=== PATIENT | female | born 1950 | race Caucasian/White ===

== ENCOUNTER → 2016-06-10 | Day surgery (SDC) | payer OTHER, MEDICARE ==
[2016-05-30 09:40] VITALS: Ht 162.6 cm; Wt 118.2 kg
[~2016-06-10] VITALS: Ht 162.6 cm; Wt 118.2 kg
[~2016-06-10] MED LIST: 500ML BSS 0.3ML EPI 1:1000PF IRRIG ONE; ACETAMINOPHEN 325 MG TAB PO PRN; AMVISC PLAIN 0.8ML SYRINGE INT OCU ONE; AMVISC PLUS 0.8ML SYRINGE INT OCU ONE; BROM0.07; BROM0.07 OPR; BSS FLUSH ONE; CHOL20005 PO; DIVA500T3 PO; DULO60CA44 PO; EpINEphrine INJ 1MG/ML AMP 1 MG/ML AMP ONE; FLUT0.15 NAE; GABA-113 PO; GATI0.5S OP; LACTATED RINGER'S 1000ML 500 ML IV SCH; LIDOCAINE 3.5% OPH GEL PER APPLICATION CHARGE ONE; LIDOCAINE HCL 1% MPF 2 ML VIAL ONE; MIDAZOLAM HCL 1 MG/ML 2ML VIAL ONE; MULT-506 PO; OCUCOAT 1 ML SOLN IO ONE; OMEP20CA9 PO; POVIDONE-IODINE OP SOLN 30 ML BTL ONE; PRED1SUS3 OPL; PRED1SUS3 OPR; PREG1CAP70 PO; PROPARACAINE 0.5% OP SOLN PER DROP CHARGE OPR SCH; SUMA50TA15 PO; TOBRAMYCIN/DEXAMETHASONE OPH OINT PER APPLN CHARGE ONE; TYLOTC500 PO; [UNRECOGNIZED DRUG - CODE] PO
[2016-06-10] MEDS: PHENYLEPHRINE HCL 2.5% OP SOLN PER DROP CHARGE OPR SCH ×2 (06:58→07:03)
[2016-06-10] MEDS: TROPICAMIDE 1% OP SOLN PER DROP CHARGE OPR SCH ×2 (06:59→07:04)
[2016-06-10] MEDS: CYCLOPENTOLATE HCL 1% OP SOLN PER DROP CHARGE OPR SCH ×2 (07:00→07:05)
[2016-06-10] MEDS: KETOROLAC 0.5% OP SOLN PER DROP CHARGE OPR SCH ×2 (07:01→07:06)
[2016-06-10] MEDS: GATIFLOXACIN OP SOLN PER DROP CHARGE OPR SCH ×2 (07:02→07:12)
--- NOTE | 2016-06-10 07:13 | History & Physical Bridge - [place] ---
H&P Re-Evaluation Bridge Note: I have examined the patient, reviewed the History & Physical and in the interval since the performance of the History & Physical I have noted the following changes of clinical significance:\ Diagnosis: Right Cataract Procedure: Right Cataract Removal with Lens Implant No changes noted
--- NOTE | 2016-06-10 07:29 | Discharge Instructions-SurgCtr ---
Discharge Instructions Visit Reason for Visit: Right Cataract Discharge Discharge Diagnosis / Problem: cataract Discharge Goals Goal(s): Improve function Activity Recommendations Activity Limitations: per Instructions/Follow-up section Anesthesia . Post Anesthesia Instructions: If you have had General Anesthesia or IV Sedation: * Do not drive today. * Resume driving when surgeon permits. * Do not make important decisions or sign legal documents today. * Call surgeon for: 1. Temperature elevations greater than 101 degrees F. 2. Uncontrollable pain. 3. Excessive bleeding. 4. Persistent nausea and vomiting. 5. Medication intolerance (nausea, vomiting or rash). * For nausea and vomiting use only clear liquids such as: tea, soda, bouillon until nausea subsides, then gradually increase diet as tolerated. * If you have any concerns or questions, call your surgeon's office. If physician is unavailable and it is an emergency, call 911 or go to the nearest emergency room. . Instructions / Follow-Up Instructions / Follow-Up ACTIVITY RECOMMENDATIONS: * No strenuous lifting, jogging or running for 4 days * No swimming or yard work for 1 week. * Limited bending is permitted, such as putting on shoes. RETURN TO SCHOOL/WORK: No work until seen by physician in office. MEDICATIONS: Resume previous medications unless instructed otherwise by your surgeon. This includes eye drops for glaucoma. Zymaxid/Gatifloxacin (domingo cap) - one drop every 2 hours until bedtime Nevanac/Ilevro/Prolensa/Ketorolac (avery cap) - one drop every 4 hours until bedtime Prednisolone (white/pink cap, SHAKE WELL) - one drop every 2 hours until bedtime Starting tomorrow - all 3 drops every 4 hours until seen in the office Optive drops - as needed for discomfort SPECIAL CARE INSTRUCTIONS: * Wear eyeshield when sleeping, for four nights. * You may wear your own glasses or sunglasses while awake. * You may read or watch TV * You may shower and wash your face, but be gentle around the eye and pat dry. * Blurry vision and mild irritation are normal. * Call office if pain is more severe or vision becomes dark at . FOLLOW UP VISIT: Follow-up with Dr Higgins tomorrow. Diet Recommendations Home Diet: resume previous diet Pending Studies Studies pending at discharge: no Medical Emergencies . Who to Call and When: Medical Emergencies: If at any time you feel your situation is an emergency, please call 911 immediately. . Non-Emergent Contact Non-Emergency issues call your: [employer] . . "Provider Documentation" section prepared by Jimmy Higgins.
--- NOTE | 2016-06-10 07:29 | [facility] Operative Report ---
Operative Report 1. PREOPERATIVE DIAGNOSIS: Cataract of the right eye. 2. POSTOPERATIVE DIAGNOSIS: Same. 3. PROCEDURE: Phacoemulsification with intraocular lens implantation of the right eye. SURGEON: Dr. Jimmy Higgins. ANESTHESIA: Topical Lidocaine gel, 1% Non- Preserved intracameral Lidocaine, and monitored intravenous sedation. INDICATIONS FOR THE PROCEDURE: The patient is a 65 - year-old female with a history of cataract of the right eye causing significant visual impairment. The details of the proposed procedure were explained to the patient who asked appropriate questions and following discussion of all risks, benefits and alternatives agreed to have the procedure done. 4. OPERATION AND FINDINGS: DESCRIPTION OF PROCEDURE: After informed consent was obtained, the patient was brought to the Operating Room at the [facility]. The patient was placed in a supine position and then the right eye was prepped and draped in the usual sterile fashion for intraocular surgery. A drop of topical Lidocaine gel was placed in the operative eye. A wire lid speculum was then placed in the fornices. A corneal paracentesis was then created temporally. The Non-Preserved Lidocaine was then instilled into the anterior chamber. The anterior chamber was then pressurized with viscoelastic. A 2.0 mm clear corneal incision was then created temporally. A cystotome was inserted into the anterior chamber and used to create a tear in the anterior lens capsule. This capsular tear was then used to create a small flap and the flap was dragged in a counterclockwise direction in order to create a continuous curvilinear capsulorrhexis. Hydrodissection was accomplished with balanced salt solution. Phacoemulsification of the lens nucleus was then performed in a standard [id number] technique. The phaco time was 6 seconds with an average power of 12 %. The remaining cortical material was removed using irrigation aspiration. The capsular bag was then filled with viscoelastic. A [employer] MX60 +19.0 diopters lens was then loaded into the injector and injected into the capsular bag. The remaining viscoelastic was removed with the irrigation aspiration handpiece. The wound was hydrated and then checked and found to be watertight. The intraocular pressure was checked and found to be adequate. The wire lid speculum was removed and the patient's face was cleaned and dried. TobraDex ointment was placed in the inferior fornix. The patient was discharged to the Recovery Room having tolerated the procedure well. There were no complications. The patient will be seen tomorrow in the office for follow-up. I attest to the content of the Intraoperative Record and any orders documented therein. Any exceptions are noted below.
[2016-06-10 07:54] VITALS: TEMP 36.6
--- NOTE | 2016-06-10 08:02 | [facility] Operative Report ---
Operative Report 1. PREOPERATIVE DIAGNOSIS: Cataract of the right eye. 2. POSTOPERATIVE DIAGNOSIS: Same. 3. PROCEDURE: Phacoemulsification with toric intraocular lens implantation of the right eye. SURGEON: Dr. Jimmy Higgins. ANESTHESIA: Topical Lidocaine gel, 1% Non- Preserved intracameral Lidocaine, and monitored intravenous sedation. INDICATIONS FOR THE PROCEDURE: The patient is a 65 - year-old female with a history of cataract of the right eye causing significant visual impairment. The details of the proposed procedure were explained to the patient who asked appropriate questions and following discussion of all risks, benefits and alternatives agreed to have the procedure done. Patient had corneal astigmatism and therefore elected to have a toric lens placed. 4. OPERATION AND FINDINGS: DESCRIPTION OF PROCEDURE: After informed consent was obtained, the patient was placed in an upright position and the cornea was marked at 154 degrees using the [employer] corneal marking tool. The patient was brought to the Operating Room at the [facility]. The patient was placed in a supine position and then the right eye was prepped and draped in the usual sterile fashion for intraocular surgery. A drop of topical Lidocaine gel was placed in the operative eye. A wire lid speculum was then placed in the fornices. A corneal paracentesis was then created temporally. The Non- Preserved Lidocaine was then instilled into the anterior chamber. The anterior chamber was then pressurized with viscoelastic. A 2.0 mm clear corneal incision was then created temporally. A cystotome was inserted into the anterior chamber and used to create a tear in the anterior lens capsule. This capsular tear was then used to create a small flap and the flap was dragged in a counterclockwise direction in order to create a continuous curvilinear capsulorrhexis. Hydrodissection was accomplished with balanced salt solution. Phacoemulsification of the lens nucleus was then performed in a standard divide- and-conquer technique. The phaco time was 21 seconds with an average power of 10 %. The remaining cortical material was removed using irrigation aspiration. The capsular bag was then filled with viscoelastic. A Shaggy [id number] +14.0 diopters lens was then loaded into the injector and injected into the capsular bag. The lens was aligned with the previously made corneal del castillo. The remaining viscoelastic was removed with the irrigation aspiration handpiece. The wound was hydrated and then checked and found to be watertight. The intraocular pressure was checked and found to be adequate. The wire lid speculum was removed and the patient's face was cleaned and dried. TobraDex ointment was placed in the inferior fornix. The patient was discharged to the Recovery Room having tolerated the procedure well. There were no complications. The patient will be seen tomorrow in the office for follow-up. I attest to the content of the Intraoperative Record and any orders documented therein. Any exceptions are noted below.
--- NOTE | 2016-06-10 08:20 | Anesthesia Progress Nt - [facility] ---
Anesthesia Post Op Note Date & Time Jun 10, 2016 at 08:20 Vital Signs Pain Intensity: 0 Vital Signs Past 12 Hours Date Time Temp Pulse Resp B/P Pulse Ox O2 Delivery O2 Flow Rate FiO2 06/10/16 07:54 36.6 84 16 147/92 93 Room Air 06/10/16 06:47 36.7 88 16 136/93 98 Room Air Notes Mental Status: alert / awake / arousable, participated in evaluation Nausea / Vomiting: adequately controlled Pain: adequately controlled Airway Patency, RR, SpO2: stable & adequate BP & HR: stable & adequate Hydration State: stable & adequate Anesthetic Complications: no major complications apparent Pt doing well.
[2016-06-10 08:21] VITALS: BP 139/91; PULSE 83; O2SAT 95
== END | disposition home or self-care (01) ==
LOC: X.SURG 06:30
PROVIDERS: ATTEND Ophthalmology
DX: H26.9 Unspecified cataract (principal); M79.7 Fibromyalgia; N39.3 Stress incontinence (female) (male); G40.909 Epilepsy, unspecified, not intractable, without status epilepticus

== ENCOUNTER → 2016-07-01 | Day surgery (SDC) | payer OTHER, MEDICARE ==
[2016-06-24 08:53] VITALS: Ht 162.6 cm; Wt 118.2 kg
[~2016-07-01] VITALS: Ht 162.6 cm; Wt 118.2 kg
[~2016-07-01] MED LIST changes: +ATROPINE SULFATE 0.1 MG/ML 5ML SYR IV PRN; -BROM0.07; +EpHEDrine SULFATE INJ 50 MG/ML AMP IV PRN; +FENTANYL CITRATE INJ 50 MCG/1 ML 2 ML VIAL IV PRN; -GATI0.5S OP; +ONDANSETRON INJ 2 MG/ML 2 ML VIAL IV PRN; -PRED1SUS3 OPL; +PROPARACAINE 0.5% OP SOLN PER DROP CHARGE OPL SCH; -PROPARACAINE 0.5% OP SOLN PER DROP CHARGE OPR SCH
[2016-07-01] MEDS: PHENYLEPHRINE HCL 2.5% OP SOLN PER DROP CHARGE OPL SCH ×2 (07:29→07:34)
[2016-07-01] MEDS: TROPICAMIDE 1% OP SOLN PER DROP CHARGE OPL SCH ×2 (07:30→07:35)
[2016-07-01] MEDS: CYCLOPENTOLATE HCL 1% OP SOLN PER DROP CHARGE OPL SCH ×2 (07:31→07:36)
[2016-07-01] MEDS: KETOROLAC 0.5% OP SOLN PER DROP CHARGE OPL SCH ×2 (07:32→07:37)
[2016-07-01] MEDS: GATIFLOXACIN OP SOLN PER DROP CHARGE OPL SCH ×2 (07:33→07:43)
--- NOTE | 2016-07-01 07:56 | History & Physical Bridge - [place] ---
H&P Re-Evaluation Bridge Note: I have examined the patient, reviewed the History & Physical and in the interval since the performance of the History & Physical I have noted the following changes of clinical significance: Diagnosis: Left Cataract Procedure: Left Cataract Removal with Lens Implant No changes noted
--- NOTE | 2016-07-01 08:40 | Discharge Instructions-SurgCtr ---
Discharge Instructions Visit Reason for Visit: Left Cataract Discharge Discharge Diagnosis / Problem: cataract Discharge Goals Goal(s): Improve function Activity Recommendations Activity Limitations: per Instructions/Follow-up section Anesthesia . Post Anesthesia Instructions: If you have had General Anesthesia or IV Sedation: * Do not drive today. * Resume driving when surgeon permits. * Do not make important decisions or sign legal documents today. * Call surgeon for: 1. Temperature elevations greater than 101 degrees F. 2. Uncontrollable pain. 3. Excessive bleeding. 4. Persistent nausea and vomiting. 5. Medication intolerance (nausea, vomiting or rash). * For nausea and vomiting use only clear liquids such as: tea, soda, bouillon until nausea subsides, then gradually increase diet as tolerated. * If you have any concerns or questions, call your surgeon's office. If physician is unavailable and it is an emergency, call 911 or go to the nearest emergency room. . Instructions / Follow-Up Instructions / Follow-Up ACTIVITY RECOMMENDATIONS: * No strenuous lifting, jogging or running for 4 days * No swimming or yard work for 1 week. * Limited bending is permitted, such as putting on shoes. RETURN TO SCHOOL/WORK: No work until seen by physician in office. MEDICATIONS: Resume previous medications unless instructed otherwise by your surgeon. This includes eye drops for glaucoma. Zymaxid/Gatifloxacin (domingo cap) - one drop every 2 hours until bedtime Nevanac/Ilevro/Prolensa/Ketorolac (avery cap) - one drop every 4 hours until bedtime Prednisolone (white/pink cap, SHAKE WELL) - one drop every 2 hours until bedtime Starting tomorrow - all 3 drops every 4 hours until seen in the office Optive drops - as needed for discomfort SPECIAL CARE INSTRUCTIONS: * Wear eyeshield when sleeping, for four nights. * You may wear your own glasses or sunglasses while awake. * You may read or watch TV * You may shower and wash your face, but be gentle around the eye and pat dry. * Blurry vision and mild irritation are normal. * Call office if pain is more severe or vision becomes dark at . FOLLOW UP VISIT: Follow-up with Dr Higgins tomorrow. Diet Recommendations Home Diet: resume previous diet Procedures Procedures Performed: Left Cataract Phacoemulsification With Intraocular Lens Implant; Toric Lens Pending Studies Studies pending at discharge: no Medical Emergencies . Who to Call and When: Medical Emergencies: If at any time you feel your situation is an emergency, please call 911 immediately. . Non-Emergent Contact Non-Emergency issues call your: [employer] . . "Provider Documentation" section prepared by Jimmy Higgins.
--- NOTE | 2016-07-01 08:43 | [facility] Operative Report ---
Operative Report 1. PREOPERATIVE DIAGNOSIS: Cataract of the left eye. 2. POSTOPERATIVE DIAGNOSIS: Same. 3. PROCEDURE: Phacoemulsification with intraocular lens implantation of the left eye. SURGEON: Dr. Jimmy Higgins. ANESTHESIA: Topical Lidocaine gel, 1% Non- Preserved intracameral Lidocaine, and monitored intravenous sedation. INDICATIONS FOR THE PROCEDURE: The patient is a 65 - year-old female with a history of cataract of the left eye causing significant visual impairment. The details of the proposed procedure were explained to the patient who asked appropriate questions and following discussion of all risks, benefits and alternatives agreed to have the procedure done. Patient had corneal astigmatism and therefore elected to have a toric lens placed. 4. OPERATION AND FINDINGS: DESCRIPTION OF PROCEDURE: After informed consent was obtained, the patient was placed in an upright position and the cornea was marked at 54 degrees using the [employer] corneal marking tool. The patient was brought to the Operating Room at the [facility]. The patient was placed in a supine position and then the left eye was prepped and draped in the usual sterile fashion for intraocular surgery. A drop of topical Lidocaine gel was placed in the operative eye. A wire lid speculum was then placed in the fornices. A corneal paracentesis was then created temporally. The Non-Preserved Lidocaine was then instilled into the anterior chamber. The anterior chamber was then pressurized with viscoelastic. A 2.0 mm clear corneal incision was then created temporally. A cystotome was inserted into the anterior chamber and used to create a tear in the anterior lens capsule. This capsular tear was then used to create a small flap and the flap was dragged in a counterclockwise direction in order to create a continuous curvilinear capsulorrhexis. Hydrodissection was accomplished with balanced salt solution. Phacoemulsification of the lens nucleus was then performed in a standard [id number] technique. The phaco time was 26 seconds with an average power of 10 %. The remaining cortical material was removed using irrigation aspiration. The capsular bag was then filled with viscoelastic. A Shaggy [id number] +13.0 diopters lens was then loaded into the injector and injected into the capsular bag. The lens was aligned with the previously made corneal del castillo. The remaining viscoelastic was removed with the irrigation aspiration handpiece. The wound was hydrated and then checked and found to be watertight. The intraocular pressure was checked and found to be adequate. The wire lid speculum was removed and the patient's face was cleaned and dried. TobraDex ointment was placed in the inferior fornix. The patient was discharged to the Recovery Room having tolerated the procedure well. There were no complications. The patient will be seen tomorrow in the office for follow-up. I attest to the content of the Intraoperative Record and any orders documented therein. Any exceptions are noted below.
--- NOTE | 2016-07-01 08:57 | Anesthesia Progress Nt - [facility] ---
Anesthesia Post Op Note Date & Time Jul 01, 2016 at 08:57 Vital Signs Pain Intensity: 2 Vital Signs Past 12 Hours Date Time Temp Pulse Resp B/P Pulse Ox O2 Delivery O2 Flow Rate FiO2 07/01/16 08:42 36.6 93 16 124/88 94 Room Air 07/01/16 07:23 36.8 93 16 141/94 96 Room Air Notes Mental Status: alert / awake / arousable, participated in evaluation Pt Amnestic to Procedure: Yes Nausea / Vomiting: adequately controlled Pain: adequately controlled Airway Patency, RR, SpO2: stable & adequate BP & HR: stable & adequate Hydration State: stable & adequate Anesthetic Complications: no major complications apparent
[2016-07-01 09:06] VITALS: BP 128/86; PULSE 83; O2SAT 95
== END | disposition home or self-care (01) ==
LOC: X.SURG 07:09
PROVIDERS: ATTEND Ophthalmology
DX: H26.9 Unspecified cataract (principal); H54.7 Unspecified visual loss; H04.123 Dry eye syndrome of bilateral lacrimal glands; G43.009 Migraine without aura, not intractable, without status migrainosus; G47.30 Sleep apnea, unspecified; M51.26 Other intervertebral disc displacement, lumbar region; E78.5 Hyperlipidemia, unspecified; K57.30 Diverticulosis of large intestine without perforation or abscess without bleeding; K20.9 Esophagitis, unspecified; R35.0 Frequency of micturition; N39.3 Stress incontinence (female) (male); E66.01 Morbid (severe) obesity due to excess calories; M79.7 Fibromyalgia; Z98.890 Other specified postprocedural states; Z68.41 Body mass index [BMI] 40.0-44.9, adult

== ENCOUNTER 2024-05-02 08:03 | Inpatient (IN) ==
--- NOTE | 2024-04-05 10:25 | PAT Medication Instructions ---
Medication Instructions Date of Service April 05, 2024 Home Medications ergocalciferol (vitamin D2) 1,250 mcg (50,000 unit) capsule 50,000 unit PO WK ketoconazole 2 % shampoo 2 % topical WK omeprazole 20 mg tablet,delayed release 20 mg PO BID pregabalin 150 mg capsule (Lyrica) 150 mg PO TID acetaminophen 500 mg tablet 1,000 mg PO BID aspirin 81 mg tablet,delayed release 81 mg PO QAM atorvastatin 40 mg tablet 40 mg PO QAM baclofen 10 mg tablet 10 mg PO TID celecoxib 200 mg capsule (Celebrex) 200 mg PO BID cholecalciferol (vitamin D3) 50 mcg (2,000 unit) capsule (Vitamin D3) 50 mcg PO BID clobetasol 0.05 % topical cream 1 applic topical DAILY PRN dicyclomine 10 mg capsule 10 mg PO DAILY PRN diphenhydramine 25 mg-acetaminophen 500 mg tablet (Tylenol PM Extra Strength) 1 tab PO HS duloxetine 60 mg capsule,delayed release 60 mg PO BID escitalopram oxalate 20 mg tablet (Lexapro) 20 mg PO QAM galcanezumab-gnlm 120 mg/mL subcutaneous pen injector (Emgality Pen) 120 mg subcut MONTHLY lasmiditan 100 mg tablet (Reyvow) 100 mg PO DAILY PRN lidocaine 5 % topical patch 1 patch topical DAILY PRN lubiprostone 24 mcg capsule (Amitiza) 24 mcg PO BID metoprolol succinate 50 mg tablet,extended release 24 hr 50 mg PO BID prucalopride 2 mg tablet (Motegrity) 2 mg PO DAILY sitagliptin phosphate 50 mg tablet (Januvia) 50 mg PO QAM topiramate 100 mg tablet 100 mg PO HS valsartan 40 mg tablet 40 mg PO QAM Continue as directed galcanezumab-gnlm 120 mg/mL subcutaneous pen injector (Emgality Pen) 120 mg subcut MONTHLY lasmiditan 100 mg tablet (Reyvow) 100 mg PO DAILY PRN(if needed) ASK your surgeon for instructions celecoxib 200 mg capsule (Celebrex) 200 mg PO BID ASK your prescriber and surgeon aspirin 81 mg tablet,delayed release 81 mg PO QAM lidocaine 5 % topical patch 1 patch topical DAILY PRN STOP taking 24 hours before surgery ketoconazole 2 % shampoo 2 % topical WK clobetasol 0.05 % topical cream 1 applic topical DAILY PRN DO NOT take the morning of surgery ergocalciferol (vitamin D2) 1,250 mcg (50,000 unit) capsule 50,000 unit PO WK cholecalciferol (vitamin D3) 50 mcg (2,000 unit) capsule (Vitamin D3) 50 mcg PO BID dicyclomine 10 mg capsule 10 mg PO DAILY PRN lubiprostone 24 mcg capsule (Amitiza) 24 mcg PO BID prucalopride 2 mg tablet (Motegrity) 2 mg PO DAILY sitagliptin phosphate 50 mg tablet (Januvia) 50 mg PO QAM valsartan 40 mg tablet 40 mg PO QAM Take morning of surgery With a small sip of water, OTHERWISE NOTHING TO EAT OR DRINK AFTER MIDNIGHT: omeprazole 20 mg tablet,delayed release 20 mg PO BID pregabalin 150 mg capsule (Lyrica) 150 mg PO TID acetaminophen 500 mg tablet 1,000 mg PO BID atorvastatin 40 mg tablet 40 mg PO QAM baclofen 10 mg tablet 10 mg PO TID duloxetine 60 mg capsule,delayed release 60 mg PO BID escitalopram oxalate 20 mg tablet (Lexapro) 20 mg PO QAM metoprolol succinate 50 mg tablet,extended release 24 hr 50 mg PO BID Take evening before surgery omeprazole 20 mg tablet,delayed release 20 mg PO BID pregabalin 150 mg capsule (Lyrica) 150 mg PO TID acetaminophen 500 mg tablet 1,000 mg PO BID baclofen 10 mg tablet 10 mg PO TID cholecalciferol (vitamin D3) 50 mcg (2,000 unit) capsule (Vitamin D3) 50 mcg PO BID diphenhydramine 25 mg-acetaminophen 500 mg tablet (Tylenol PM Extra Strength) 1 tab PO HS duloxetine 60 mg capsule,delayed release 60 mg PO BID lubiprostone 24 mcg capsule (Amitiza) 24 mcg PO BID metoprolol succinate 50 mg tablet,extended release 24 hr 50 mg PO BID topiramate 100 mg tablet 100 mg PO HS Other Notes If you have any questions please call us at [phone] or [phone] or [phone] or [phone]
--- NOTE | 2024-04-12 10:50 | Anesthesiology Consultation ---
Date of Service April 12, 2024 Assessment & Plan (1) Encounter for pre-operative examination: Chart Review Chart Review: Acceptable Risk for Surgery (pending cardio clearance 04/13/24 and final PCP clearance ) and Patient seen in Pre Admission Testing - Awaiting cardio clearance ([facility] cardio) 04/13/24 - Awaiting final PCP clearance (seen 04/04/24- awaiting preop testing per patient and cardio clearance)- please fax to PCP for review and obtain final PCP clearance Jehovah Witness- NO BLOOD PRODUCTS - Check BSG AM DOS Per PAT appt on 04/12/24, no recent illness/disease exposures, illness related symptoms, or recent illness/disease positive tests. Will leave to surgeon's discretion if preop Covid testing needed Seen by PCP 04/04/24= Patient seen for preop exam and yearly physical. Preop EKG done today. Taking Vitamin D per Dr. Jiang recommendations. Will have a collagen dressing. Depression- on Citalopram. Inflammatory polyarthritis- seeing rheum next month. Cardiomyopathy and chronic systolic HF- needs cardiac clearance. Morbid obesity- diet and exercise. Type II DM- A1C 5.9. HLD- on statin. GERD- on PPI. Cardiology clearance pending. Can fill out form after cardiac clearance. Holding immunizations until post op. Do not expect medical complications of planned procedure Teaching & Discussion Pre-Anesthesia Teaching/Discussion Notes: Instructed NPO after midnight before surgery,except medications with 15 cc of water. Medication instructions provid ed according to the PAT guidelines. History Surgery Operation Date: 05/02/24 11:05 Proposed Procedures p Right Spine Sacroiliac Joint Fusion with Spinal Cord Monitoring - Mike Jiang, Height/Weight Height: 5 ft 3 in Weight: 117.1 kg Allergies Allergy/AdvReac Type Severity Reaction Status Date / Time sucralfate Allergy Unknown Unknown Verified 04/05/24 07:33 tizanidine AdvReac Severe Hallucinati Verified 04/05/24 07:33 ng bupropion AdvReac Intermediate Anxious Verified 04/05/24 07:33 ergotamine AdvReac Intermediate Dry Heaving Verified 04/05/24 07:33 fremanezumab-vfrm AdvReac Intermediate Severe Verified 04/05/24 07:33 head pain for three days oxycodone AdvReac Intermediate Headache Verified 04/12/24 10:53 tartrazine AdvReac Intermediate Nausea Uncoded 04/05/24 07:33 Medications Home Medications Medication Instructions Recorded Confirmed Last Taken ergocalciferol (vitamin D2) 1,250 50,000 unit PO WK 10/13/18 04/05/24 10/29/18 mcg (50,000 unit) capsule ketoconazole 2 % shampoo 2 % topical WK 10/13/18 04/05/24 10/01/18 omeprazole 20 mg tablet,delayed 20 mg PO BID 10/13/18 04/05/24 11/01/18 10:00 release pregabalin 150 mg capsule (Lyrica) 150 mg PO TID 10/13/18 04/05/24 11/01/18 10:00 acetaminophen 500 mg tablet 1,000 mg PO BID 04/05/24 04/05/24 Unknown aspirin 81 mg tablet,delayed 81 mg PO QAM 04/05/24 04/05/24 Unknown release atorvastatin 40 mg tablet 40 mg PO QAM 04/05/24 04/05/24 Unknown baclofen 10 mg tablet 10 mg PO TID 04/05/24 04/05/24 Unknown celecoxib 200 mg capsule (Celebrex) 200 mg PO BID 04/05/24 04/05/24 Unknown cholecalciferol (vitamin D3) 50 50 mcg PO BID 04/05/24 04/05/24 Unknown mcg (2,000 unit) capsule (Vitamin D3) clobetasol 0.05 % topical cream 1 applic topical DAILY PRN Rash 04/05/24 04/05/24 Unknown dicyclomine 10 mg capsule 10 mg PO DAILY PRN Abdominal Pain 04/05/24 04/05/24 Unknown diphenhydramine 25 1 tab PO HS 04/05/24 04/05/24 Unknown mg-acetaminophen 500 mg tablet (Tylenol PM Extra Strength) duloxetine 60 mg capsule,delayed 60 mg PO BID 04/05/24 04/05/24 Unknown release escitalopram oxalate 20 mg tablet 20 mg PO QAM 04/05/24 04/05/24 Unknown (Lexapro) galcanezumab-gnlm 120 mg/mL 120 mg subcut MONTHLY 04/05/24 04/05/24 Unknown subcutaneous pen injector (Emgality Pen) lasmiditan 100 mg tablet (Reyvow) 100 mg PO DAILY PRN Migraine Onset 04/05/24 04/05/24 Unknown lidocaine 5 % topical patch 1 patch topical DAILY PRN Pain 04/05/24 04/05/24 Unknown lubiprostone 24 mcg capsule 24 mcg PO BID 04/05/24 04/05/24 Unknown (Amitiza) metoprolol succinate 50 mg 50 mg PO BID 04/05/24 04/05/24 Unknown tablet,extended release 24 hr prucalopride 2 mg tablet 2 mg PO DAILY 04/05/24 04/05/24 Unknown (Motegrity) sitagliptin phosphate 50 mg tablet 50 mg PO QAM 04/05/24 04/05/24 Unknown (Januvia) topiramate 100 mg tablet 100 mg PO HS 04/05/24 04/05/24 Unknown valsartan 40 mg tablet 40 mg PO QAM 04/05/24 04/05/24 Unknown Past Medical History Medical History (Updated 04/12/24 @ 10:58 by Lissette Luque PA-C) Adverse effect of anesthesia "With vitrectomy in recovery I had a hard time breathing but I think it was because I was drinking too fast and swallowed some air." Anxiety Chronic constipation Degenerative disc disease Depression Diverticular disease x2 hospitalizations - been a few years since any complications no recent flares Fibromyalgia GERD (gastroesophageal reflux disease) well controlled and stable Hearing loss, right no hearing aid "Won't help" Heart failure with reduced ejection fraction [facility] Cardiology Dr Mullen EF 65-69% per 06/2023 ECHO History of COVID-19 12/2023- no current symptoms IBS (irritable bowel syndrome) Kidney stones hx passed on own Migraine No blood products Sabianism Osteoarthritis 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 Sleep apnea BIPAP Spinal stenosis Type 2 diabetes mellitus oral Hgb A1C 5.9 on 03/23/24 Exercise / Class Metabolic Activity III < 4 Walking/Shop/Light housework (one flight of stairs- mild SOB, no chest pain ) Past Family History Family History Grandfather (Paternal) Family history of diabetes mellitus Uncle Family history of esophageal cancer Grandmother (Paternal) Family history of stomach cancer Other No family history of adverse response to anesthesia Past Surgical History Surgical History (Updated 04/12/24 @ 11:04 by Lissette Luque PA-C) History of arthroscopy of left knee History of arthroscopy of right knee History of bilateral tubal ligation History of colonoscopy multiple with polypectomy History of dilatation and curettage History of esophagogastroduodenoscopy (EGD) esophageal polyps removed in 2021 (had two clips placed by Dr Hernandez) History of lumbar laminectomy for spinal cord decompression x2--hardware in place History of phacoemulsification of cataract of both eyes with intraocular lens implantation History of repair of left rotator cuff History of wisdom tooth extraction Hx of vitrectomy Right Status post right foot surgery plantar fasciitis Past Anesthesia History No Hx of Anesthesia Complications (with remote hx of SOB after vitrectomy (drank ice cold soda quickly post op) ) and No Family Hx of Anesthesia Complications History of PONV No Hx of PONV and No Hx of Motion Sickness Social History Smoking Status: Never smoker Do You Dip or Chew Tobacco: No Hx Alcohol Use: No Hx Substance Use: No substance use type: does not use Review of Systems - Chronic cough x years- stable- non productive Patient denies chest pain, shortness of breath at rest, wheezing, palpitations. No hx of stroke, [place]. No hx of blood clots or blood transfusions Physical Exam Vital Signs VITALS BP 115/74 P 62 TEMP 97.9 SP02 94% RESP 16 Constitutional no acute distress ENMT Mouth: + small oral opening; no TMJ clicking Thyromental Distance: > or= 3.5 Finger Breadths (3.5) Mallampati Class: III Missing molar and side teeth Neck + limited neck extension Respiratory normal respiratory effort; no respiratory distress Auscultation: lungs clear to auscultation bilaterally; no wheezes Cardiovascular Rate/Rhythm: regular rate and regular rhythm Heart Sounds: no murmur Vessels: no carotid bruit Heart sounds distant Musculoskeletal Spine: + pain with cervical ROM (mild) Extremities: extremities normal to inspection Psychiatric Orientation: alert Lab Results Anesthesia Preop Results Results Anesthesia Widget: WBC 6.53 K/ul (4.8-10.8) 04/12/24 Hgb 12.8 g/dl (12.0-16.0) 04/12/24 Hct 42.2 % (37.0-47.0) 04/12/24 Plt 157 K/uL (130-400) 04/12/24 Na 141 mmol/L (136-145) 04/12/24 K 3.9 mmol/L (3.5-5.1) 04/12/24 Cl 107 mmol/L (98-107) 04/12/24 CO2 28 mmol/L (21-32) 04/12/24 BUN 18 mg/dl (6-23) 04/12/24 Creat 0.89 mg/dl (0.6-1.2) 04/12/24 Glucose Level 74 mg/dl (70-99(Fasting)) 04/12/24 PT 10.8 Seconds (9.0-12.0) 04/12/24 PTT 28 Seconds (21-31) 04/12/24 INR 1.0 (0.9-1.1) 04/12/24 Urine Color Yellow 04/12/24 Urine Appearance Clear (Clear) 04/12/24 Urine pH 7.0 (4.5-7.5) 04/12/24 Urine Specific [place] 1.008 (1.000-1.030) 04/12/24 Urine Protein Negative (Negative) 04/12/24 Urine Glucose (UA) Negative (Negative) 04/12/24 Urine Ketones Negative (Negative) 04/12/24 Urine Blood Negative (Negative) 04/12/24 Urine Nitrite Negative (Negative) 04/12/24 Urine Bilirubin Negative (Negative) 04/12/24 Urine Urobilinogen Negative (Negative) 04/12/24 Urine Leukocyte Esterase 1+ (Negative) H 04/12/24 Urine WBC (Auto) 0-5 /hpf (0-5) 04/12/24 Urine RBC (Auto) 0-2 /hpf (0-2) 04/12/24 Urine Hyaline Casts (Auto) 0-2 /lpf (0-2) 04/12/24 Urine Epithelial Cells (Auto) 0-2 /hpf (0-2) 04/12/24 Urine Bacteria (Auto) None Seen (None Seen) 04/12/24 Testing Laboratory Results 03/23/24= Hgb A1C 5.9 Electrocardiogram Date: 04/04/24 Findings: + NSR @ (63bpm) High QRS voltage may be normal variant or due to LVE When compared to EKG from August 13, 2020- no significant change was found per cardio Chest X-Ray Date: 04/12/24 Findings: + NAD FINDINGS: Mild cardiomegaly. Pulmonary vasculature appear within normal limits. No infiltrate, pleural effusion or pneumothorax. No acute osseous abnormality evident. Echocardiogram Date: 06/25/23 EF: 65-69% LV Function: normal RWMA: + none Other Findings: + LVH (mild/concentric) and + diastolic dysfunction (Grade I ) Valvular Disease: + no significant valvular disease Stress Test Date: 08/20/20 Type: nuclear Lexiscan nuclear cardiac stress test negative for ischemia Small area of fixed perfusion defect in the apical to basal inferior wall worse on the stress images suggestive of attenuation artifact LV EF is >70% Cervical Spine Date: 08/25/23 There is spondylosis of the cervical spine No acute osseous abnormality Other Testing Event monitor 05/15/23= Min HR 45bpm, max HR 111bpm, average HR 73bpm/ Predominant rhythm was SR. 2 isolated SVEs were rare, SVE couplets were rare, and SVE triplets were rare. Isolated VEs were rate, and no VE couplets or VE triplets were present. Triggered and reported events are associated with sinus rhythm and sinus tachycardia. No arrhythmias
[2024-05-02] MEDS ORDERED: fentaNYL citrate PF 100 MCG/2 ML VIAL ONE (08:17)
[2024-05-02] MEDS ORDERED: ONDANSETRON INJ 2 MG/ML 2 ML VIAL ONE (08:17)
[2024-05-02] MEDS ORDERED: DEXAMETHASONE SOD INJ 4 MG/ML VIAL ONE (08:17)
[2024-05-02] MEDS ORDERED: LIDOCAINE 2% 2 ML VIAL/AMP(20MG/ML) INFIL ONE (08:17)
[2024-05-02] MEDS ORDERED: PROPOFOL IV EMULSION 10 MG/ML 20 ML VIAL IV ONE (08:17)
[2024-05-02] MEDS ORDERED: MIDAZOLAM HCL 1 MG/ML 2ML VIAL ONE (08:18)
[2024-05-02] MEDS: LR 15ML/HR IV SCH (08:42)
[2024-05-02] MEDS: CeleBREX 200 MG CAP PO SCH (08:42)
[2024-05-02] MEDS: ACETAMINOPHEN 500 MG TAB PO SCH (08:42)
[2024-05-02] MEDS: LR 60ML/HR IV SCH (08:42)
[2024-05-02] MEDS: GABAPENTIN 300 MG CAP PO SCH (08:58)
--- NOTE | 2024-05-02 09:04 | History & Physical Bridge Note ---
Date of Service May 02, 2024 History & Physical Bridge Note I have examined the patient, reviewed the History & Physical and in the interval since the performance of the History & Physical I have noted the following changes of clinical significance: no changes noted
--- NOTE | 2024-05-02 09:05 | History & Physical Report ---
Date of Service May 02, 2024 Assessment & Plan (1) Sacroiliitis: Plan: Right sacroiliac joint fusion History of Present Illness Chief Complaint: Sacroiliitis Primary Care Provider: Araceli Mays MD This is a 73-year-old female well-known to me the presents with chronic persistent sacroiliitis. After failing course of nonoperative care is here for surgical invention. Allergies Allergy/AdvReac Type Severity Reaction Status Date / Time sucralfate Allergy Unknown Unknown Verified 05/02/24 08:36 tizanidine AdvReac Severe Hallucinati Verified 05/02/24 08:36 ng bupropion AdvReac Intermediate Anxious Verified 05/02/24 08:36 ergotamine AdvReac Intermediate Dry Heaving Verified 05/02/24 08:36 fremanezumab-vfrm AdvReac Intermediate Severe Verified 05/02/24 08:36 head pain for three days oxycodone AdvReac Intermediate Headache Verified 05/02/24 08:36 tartrazine AdvReac Intermediate Nausea Uncoded 05/02/24 08:36 Home Medications Medication Instructions Recorded Confirmed Type ergocalciferol (vitamin D2) 1,250 50,000 unit PO WK 10/13/18 05/02/24 History mcg (50,000 unit) capsule ketoconazole 2 % shampoo 2 % topical WK 10/13/18 05/02/24 History omeprazole 20 mg tablet,delayed 20 mg PO BID 10/13/18 05/02/24 History release pregabalin 150 mg capsule (Lyrica) 150 mg PO TID 10/13/18 05/02/24 History acetaminophen 500 mg tablet 1,000 mg PO BID 04/05/24 05/02/24 History aspirin 81 mg tablet,delayed 81 mg PO QAM 04/05/24 05/02/24 History release atorvastatin 40 mg tablet 40 mg PO QAM 04/05/24 05/02/24 History baclofen 10 mg tablet 10 mg PO TID 04/05/24 05/02/24 History celecoxib 200 mg capsule (Celebrex) 200 mg PO BID 04/05/24 05/02/24 History cholecalciferol (vitamin D3) 50 50 mcg PO BID 04/05/24 05/02/24 History mcg (2,000 unit) capsule (Vitamin D3) clobetasol 0.05 % topical cream 1 applic topical DAILY PRN Rash 04/05/24 05/02/24 History dicyclomine 10 mg capsule 10 mg PO DAILY PRN Abdominal Pain 04/05/24 05/02/24 History diphenhydramine 25 1 tab PO HS 04/05/24 05/02/24 History mg-acetaminophen 500 mg tablet (Tylenol PM Extra Strength) duloxetine 60 mg capsule,delayed 60 mg PO BID 04/05/24 05/02/24 History release escitalopram oxalate 20 mg tablet 20 mg PO QAM 04/05/24 05/02/24 History (Lexapro) galcanezumab-gnlm 120 mg/mL 120 mg subcut MONTHLY 04/05/24 05/02/24 History subcutaneous pen injector (Emgality Pen) lasmiditan 100 mg tablet (Reyvow) 100 mg PO DAILY PRN Migraine Onset 04/05/24 05/02/24 History lidocaine 5 % topical patch 1 patch topical DAILY PRN Pain 04/05/24 05/02/24 History lubiprostone 24 mcg capsule 24 mcg PO BID 04/05/24 05/02/24 History (Amitiza) metoprolol succinate 50 mg 50 mg PO BID 04/05/24 05/02/24 History tablet,extended release 24 hr prucalopride 2 mg tablet 2 mg PO DAILY 04/05/24 05/02/24 History (Motegrity) sitagliptin phosphate 50 mg tablet 50 mg PO QAM 04/05/24 05/02/24 History (Januvia) topiramate 100 mg tablet 100 mg PO HS 04/05/24 05/02/24 History valsartan 40 mg tablet 40 mg PO QAM 04/05/24 05/02/24 History Past Med/Surg History Problem List (Updated 05/02/24 @ 09:05 by Mike Jiang DO) Sacroiliitis Encounter for pre-operative examination Medical History (Updated 05/02/24 @ 09:05 by Mike Jiang DO) History of COVID-19 12/2023- no current symptoms Adverse effect of anesthesia "With vitrectomy in recovery I had a hard time breathing but I think it was because I was drinking too fast and swallowed some air." Diverticular disease x2 hospitalizations - been a few years since any complications no recent flares Chronic constipation IBS (irritable bowel syndrome) Type 2 diabetes mellitus oral Hgb A1C 5.9 on 03/23/24 Hearing loss, right no hearing aid "Won't help" Heart failure with reduced ejection fraction S Cardiology Dr Mullen EF 65-69% per 06/2023 ECHO No blood products Mu-ism Degenerative disc disease Spinal stenosis Kidney stones hx passed on own GERD (gastroesophageal reflux disease) well controlled and stable Fibromyalgia Osteoarthritis Depression Anxiety 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 Migraine Sleep apnea BIPAP Surgical History Hx of vitrectomy Right History of dilatation and curettage History of bilateral tubal ligation Status post right foot surgery plantar fasciitis History of lumbar laminectomy for spinal cord decompression x2--hardware in place History of repair of left rotator cuff History of arthroscopy of right knee History of arthroscopy of left knee History of colonoscopy multiple with polypectomy History of esophagogastroduodenoscopy (EGD) esophageal polyps removed in 2021 (had two clips placed by Dr Hernandez) History of wisdom tooth extraction History of phacoemulsification of cataract of both eyes with intraocular lens implantation Family History Grandfather (Paternal) Family history of diabetes mellitus Uncle Family history of esophageal cancer Grandmother (Paternal) Family history of stomach cancer Other No family history of adverse response to anesthesia Social History Smoking Status: Never smoker Second Hand Exposure: No; Do You Dip or Chew Tobacco: No; Tobacco Cessation Education Requested by Patient: No Hx Alcohol Use: No Hx Substance Use: No Preferred Language: Telugu Communication Ability: Effective Dementia Program Director Required: No Beliefs That Will Affect Care: Spiritism Spiritism Beliefs: Mu-ism - No Blood Products Current Living Situation: Spouse Other Information That Helps Us Care for You: No Feels Safe at Home: Yes Safety Concerns: Feels Safe At This Time Assistive Devices: BiPap, Cane, Glasses and Walker Physical Exam Physical Exam: Patient is alert and oriented heart regular rhythm Lungs clear Results & Data Results & Data Vital Signs (Past 12 Hours) Vital Signs Temp Pulse Resp BP Pulse Ox O2 Del Method 05/02/24 08:32 37.1 C 72 20 141/67 H 95 Room Air
[2024-05-02] MEDS ORDERED: ePHEDrine sulfate 50 MG/ML AMP IV PRN (09:12)
[2024-05-02] MEDS ORDERED: PROMETHAZINE HCL 6.25 MG in SODIUM CHLORIDE 0.9% 50 ML IV PRN (09:12)
[2024-05-02] MEDS ORDERED: DROPERIDOL 5 MG/2 ML VIAL IV PRN (09:12)
[2024-05-02] MEDS ORDERED: ATROPINE SULFATE 0.1 MG/ML 10ML SYR IV PRN (09:12)
[2024-05-02] MEDS ORDERED: HYDROmorphone INJ 2 MG/ML SYR/VIAL IV PRN (09:12)
[2024-05-02] MEDS: SODIUM CHLORIDE 0.9% 1,000 ML IV SCH (09:20)
[2024-05-02] MEDS: GABAPENTIN 300 MG CAP ONE (09:26)
[2024-05-02] MEDS: ceFAZolin 2000MG 2,000 MG/15 ML SYR IV SCH (09:33)
[2024-05-02] MEDS ORDERED: ROCURONIUM BROMIDE 10 MG/ML 5 ML VIAL IV ONE (09:56)
[2024-05-02] MEDS ORDERED: SUGAMMADEX SODIUM 200 MG/2 ML VIAL IV ONE (10:02)
[2024-05-02] MEDS: BUPIVACAINE/EPINEPHRINE 0.25% 1:200,000 30 ML VIAL ONE (10:09)
[2024-05-02] MEDS: ceFAZolin 330 MG/ML 1 GM VIAL ONE (10:15)
--- NOTE | 2024-05-02 10:25 | Operative Report ---
Post Operative Report Pre & Post Diagnosis Operation Date: 05/02/24 09:45 Pre-Op Diagnosis: Sacroilitis Post-Op Diagnosis: Sacroilitis I identified the patient and participated in the time-out.: Yes Procedure Operation Date: 05/02/24 09:45 Actual Procedures #1 open right SI joint fusion. #2 placement of Nevro one 9 mm implant interdigitating the ileum to the sacrum. It was filled with os design bone graft. Surgeon Mike Jiang, Net Lead Architect Paloma Wheatley Estimated Blood Loss 50 Findings Consistent with Post-Op Diagnosis Specimens None Indications This is a 73-year-old female known to this presents with chronic persistent sacroiliitis. Of failing course of nonoperative care she is here for surgical invention. Description of Procedure Patient was met with identified informed consent obtained. Patient was then taken to the operative suite underwent patient placed in a prone position on the Tip table the chest pad and hip bolsters. All bony promises well-padded eyes inspected to ensure no external pressure placed upon them. This point the right upper buttock was prepped and draped no sterile fashion. The assistance of fluoroscopy identified the posterior aspect the right SI joint. Approximately 3 cm incision was then created directly overlying this joint. I then carried out the dissection to the posterior capsule of the joint. The joint was opened and I placed a joint finder directly in the right SI joint. Position was verified with fluoroscopy in AP oblique and lateral planes. Satisfied with position I then placed a dilator over the joint finder followed by a working cannula. I then drilled out curetted out the right SI joint to subcortical bleeding bone. I then placed a 9 mm Nevro 1 implant filled with Oxyzyme bone graft directly into the joint. It was interdigitated between the ileum and the sacrum. The joint was then irrigated closed with subcutaneous Vicryl and 4 Monocryl for final skin closure. Steri-Strips sterile dressing placed. Patient waken taken to PACU in stable condition. Please note Paloma Wheatley was present at the entire procedure involved the patient positioning complex portions of the surgery and fascial closure. Im ordering 20 grams of Triple [place] Collagen Powder ([employer] [id number]) to treat an incision wound that was caused by a spine procedure. The incision is approximately 2 cm(W) x 4 cm(L) into the joint (D) in size and is a full thickness wound. Triple [place] collagen comes in 1 gram packets so 20 packets were ordered. Given the size of the wound, with light to moderate exudate I chose to order a 20 day supply. The patient will be provided instructions for proper application of the collagen wound kit. The patient will be asked to apply the collagen powder daily and then cover it with sterile dressings dispensed. Collagen was selected as I expect the collagen to attract monocytes and fibroblasts, act as a sacrificial substrate for MMPs, and ultimately proved a matrix for tissue and vessel growth. The collagen will act as a primary dressing in this scenario. It is medically necessary for proper healing of these wounds to improve bioavailability and contact with each wound surface, this is also to help prevent infection of wounds and promote healing ultimately leading to a better healing outcome and limit the risk of infection. I attest to the content of the Intraoperative Record and any orders documented therein. Any exceptions are noted below.
--- NOTE | 2024-05-02 10:38 | Fluoroscopy Report ---
FL sacrum CLINICAL HISTORY: RIGHT SI JOINT FUSION COMPARISON STUDY: Fluoroscopic images of the lumbar spine 09/11/2010 FLUOROSCOPY TIME: 69.3 seconds FLUOROSCOPY IMAGES: 2 EXPOSURE DOSE: 133.34 mGy FINDINGS: Partially imaged fusion hardware with discectomy changes at L4-L5. Status post fusion of wh at is labeled the right SI joint. No unexpected opaque foreign bodies. Note that the images were subm itted following completion of the surgery. IMPRESSION: Fluoroscopic assistance as above. ACT 112: Negative or not required by law. Electronically signed by: Chinedu Jackson M.D. 05/02/2024 10:37 AM
--- OUTSIDE RECORDS SUMMARY | 2024-05-02 12:17 | External Medical Summary | Summary of Care ---
Author Name Unknown Organization [facility] Address [address] [place] [address] Phone [phone] Care Team Providers Care Airport Sales Agent Name Role Phone Araceli Mays MD Primary Care Provider [phone] Reason for Referral * Evaluate & Treat - Unlimited Visits (Within 10 days (routine)) - Authorized Specialty Diagnoses / Procedures Referred By Contgarfield t Referred To Contact Optometry Diagnoses Type 2 diabetes mellitus with hemoglobin A1c goal of less than 7.0% ([facility]) Araceli Mays MD [address] [place] [address] Phone: tel: fax: Referral ID Status Reason Start Date Expiration Date Visits Requested Visits Authorized [id number] Authorized Specialty Services Required 03/31/[id number] Question Answer Referral Priority Within 10 days (routine) Where should this appointment be scheduled? [facility] Referring for: Optometry Conditions Optometry Conditions Diabetic Eye Exam without Retinopathy Reason for Visit * Reason Onset Date Comments Physical-Exam Patient here for yearly physical and preop clearance. 05/02 - surgery at [facility]. Patient will receive form on 04/12 for provider to fill out. Immunizations 04/04/2024 Shingrix Encounter Details Date Type Department Care Team (Latest Contact Info) Description 04/04/2024 9:00 AM EST Office Visit Family Practice, [place] [address] [place] [address] Araceli Mays MD [address] [place] [id number] Pre-operative cardiovascular examination*; Sacroiliitis (HCC); Current moderate episode of major depressive disorder, unspecified whether recurrent (HCC); Inflammatory polyarthritis (HCC); Cardiomyopathy, unspecified type (HCC); Chronic systolic heart failure (HCC); Morbid obesity due to excess calories (HCC); Type 2 diabetes mellitus with hemoglobin A1c goal of less than 7.0% (HCC); Hyperlipidemia with target LDL less than 100; Gastroesophageal reflux disease without esophagitis; Long QT interval; No transfusions per confucianism beliefs; Need for vaccination for zoster Allergies Active Allergy Reactions Criticality Noted Date Comments Fremanezumab-Vfrm Other (Please comment) High 2020 Head pain x 3 days straight Ergotamine 07/29/2023 Tartrazine CAFERGOT,NAUSEA AND VOMITING Tizanidine Other (Please comment) 03/07/2024 Makes me see weird things Bupropion Hcl Other (Please comment) 04/01/2012 aggitated documented as of this encounter (statuses as of 04/20/2024) Medications Cholecalciferol (VITAMIN D3) 1.25 MG (28777 UT) Capsule One capsule once a week x 3 months 4 Cap 3 020 Active aspirin enteric coated 81 MG TBEC Take 1 Tab by mouth daily. 30 Tab 5 020 Active Blood Glucose Monitoring Suppl ([employer] BLOOD GLUCOSE METER) w/Device KIT Please use to test blood sugar once daily or as directed. ICD E11.9 1 Kit 020 Active CPAP every night at bedtime. Auto 12-20 cm Active True Metrix Blood Glucose Test In Vitro Strip (Glucose Blood) USE DIRECTED TO CHECK BLOOD SUGAR TWICE A DAY. E11.9 200 Strip 5 023 Active TRUEplus Lancets 33G USE TO CHECK BLOOD SUGAR TWICE DAILY OR DIRECTED. E11.9 150 Each 11 Active Lasmiditan Succinate 100 MG Oral Tablet (Reyvow)Indicatio ns:Mixed headache TAKE 1 TABLET BY MOUTH AT ONSET OF MIGRAINE. NO MORE THAN 1 DOSE IN 24 HOURS 8 Tablet 5 023 Active Azelastine HCl 0.1 % Nasal Solution (Astelin)Indicati ons:Allergic rhinitis, unspecified seasonality, unspecified trigger Administer 1 [place] into nostril in the morning and 1 [place] before bedtime. 30 mL 12 023 Active Clobetasol Propionate 0.05 % External Gel (Temovate) Apply topically to affected area 2 times a day. Apply to behind each ear as needed Active Sulfamethoxazole- Trimethoprim 800-160 MG Oral Tablet (Bactrim DS) Take 1 Tablet by mouth in the morning and 1 Tablet before bedtime. Use as directed.. 30 Tablet 6 Active Additional Information Patient not taking.Reported on 04/13/2024 ZyrTEC Allergy 10 MG Oral Capsule (Cetirizine HCl) Take 1 Capsule by mouth in the morning. Active Omeprazole 20 MG Oral Capsule Delayed Release (PriLOSEC)Indicat ions:Gastroesopha geal reflux disease with esophagitis, unspecified whether hemorrhage TAKE ONE CAPSULE BY MOUTH IN THE MORNING AND AT BEDTIME 180 Capsule 3 024 Active Metoprolol Succinate ER 50 MG Oral Tablet Extended Release 24 Hour (toPROL XL)Indications:Ch ronic systolic heart failure (HCC) Take 1 Tablet by mouth in the morning and 1 Tablet before bedtime. ]. 60 Tablet 3 024 Active Escitalopram Oxalate 20 MG Oral Tablet (Lexapro)Indicati ons:Adjustment disorder with mixed disturbance of emotions and conduct TAKE ONE TABLET BY MOUTH EVERY MORNING 90 Tablet 3 024 Active SITagliptin Phosphate 50 MG Oral Tablet (Januvia) Take 1 Tablet by mouth in the morning. 90 Tablet 3 024 Active Acetaminophen 500 MG Oral Capsule Take 2 Capsules by mouth 3 times a day as needed for Pain, Mild, Pain, Moderate or Pain, Severe. 024 Active Tylenol PM Extra Strength 500-25 MG Oral Tablet (diphenhydrAMINE- APAP (sleep)) Take 1 Tablet by mouth at bedtime as needed for Sleep (or pain). Do not take with plain Tylenol, can only have one or the other for any given dose 024 Active Miconazole Nitrate 2 % External Ointment (Triple Paste AF) Ac tive Ketoconazole 2 % External Shampoo (Nizoral)Indicati ons:Seborrheic dermatitis of scalp Apply to scalp every 2-3 days. Leave on for 5 minutes before rinsing. 120 mL 5 024 Active Topiramate 100 MG Oral Tablet (topAMAX) Take 1 Tablet by mouth every night at bedtime. Pharmacy can put on file until requested by patient 30 Tablet 5 024 Active Dicyclomine HCl 10 MG Oral Capsule (Bentyl)Indicatio ns:Generalized abdominal pain Take 1 Capsule by mouth 3 times a day as needed for Pain, Mild. As needed for abdominal pain/cramping. 180 Capsule 024 Active Lidocaine 5 % External Patch (Lidoderm)Indicat ions:Sacroiliitis (HCC),Displacemen t of lumbar intervertebral disc without myelopathy Place 1 Patch over 12 hours topically on the skin daily. 30 Patch 2 024 Active Emgality 120 MG/ML Subcutaneous Solution Auto-injector (Galcanezumab-gnl m) Inject 1 mL under the skin every month. 1 mL 3 03/28/20 24 11:23 AM EST 024 Active Celecoxib 200 MG Oral Capsule (CeleBREX)Indicat ions:Displacement of lumbar intervertebral disc without myelopathy,Sacroi liitis (HCC) Take 1 Capsule by mouth in the morning and 1 Capsule before bedtime. 60 Capsule 5 024 2024 Active Lubiprostone 24 MCG Oral Capsule (Amitiza)Indicati ons:Chronic constipation Take 1 Capsule by mouth 2 times a day with morning and evening meals. 60 Capsule 5 024 Active DULoxetine HCl 60 MG Oral Capsule Delayed Release Particles (Cymbalta) Take 1 Capsule by mouth in the morning and 1 Capsule before bedtime. 180 Capsule 1 024 Active Motegrity 2 MG Oral Tablet (Prucalopride Succinate)Indicat ions:Chronic constipation TAKE ONE TABLET BY MOUTH EVERY MORNING 90 Tablet 3 024 Active Atorvastatin Calcium 40 MG Oral Tablet (Lipitor)Indicati ons:Hyperlipidemi a with target LDL less than 100 Take 1 Tablet by mouth in the morning. 90 Tablet Active Valsartan 40 MG Oral Tablet (Diovan)Indicatio ns:HTN, goal below 130/80 Take 1 Tablet by mouth in the morning. 90 Tablet 1 Active Zoster Vac Recomb Adjuvanted 50 MCG/0.5ML Intramuscular Suspension Reconstituted (Shingrix)Indicat ions:Need for vaccination for zoster Inject 0.5 mL into a large muscle now and repeat dose in 60 to 180 days 1 Each 1 Active Prolia 60 MG/ML Subcutaneous Solution Prefilled Syringe (Denosumab) Inject 60 mg under the skin once. 2023 Discontinued(M edication/Dose Changed) Vitamin B-12 1000 MCG Oral Tablet (Cyanocobalamin) Take 1 Tablet by mouth in the morning. 2023 Discontinued(M edication/Dose Changed) Estradiol 0.1 MG/GM Vaginal Cream (Estrace) Administer 1 g into the vagina once a day on Thursday, Thursday, and Thursday only. 13 g 10 023 2023 Discontinued(M edication/Dose Changed) Lubiprostone 8 MCG Oral Capsule (Amitiza)Indicati ons:Chronic constipation TAKE TWO CAPSULES BY MOUTH TWICE DAILY with morning and evening meals 360 Capsule 3 023 2023 Discontinued(M edication/Dose Changed) Topiramate 25 MG Oral Tablet (topAMAX) Use to wean of AM dose of topirimate 100 mg as follows. 75 mg in AM for 1 week, then 50 mg in AM for 1 week, then 25 mg in AM for 1 week, then stop AM dose of topirimate, leaving only 100 mg at night 42 Tablet 024 2023 Discontinued(M edication/Dose Changed) Pregabalin 150 MG Oral Capsule (Lyrica)Indicatio ns:Spinal stenosis of lumbar region without neurogenic claudication,Sacr oiliitis (HCC) Take 1 Capsule by mouth in the morning and 1 Capsule at noon and 1 Capsule before bedtime. 90 Capsule 2 024 2023 Discontinued(R efill) Baclofen 10 MG Oral Tablet (Lioresal)Indicat ions:Sacroiliitis (HCC) Take 1 Tablet by mouth in the morning and 1 Tablet at noon and 1 Tablet before bedtime. As needed. 90 Tablet 024 2023 Discontinued documented as of this encounter (statuses as of 04/20/2024) Active Problems Problem Noted Date Diagnosed Date Major depressive disorder, single episode, moder ate 03/31/2024 Inflammatory polyarthritis 03/31/2024 Cardiomyopathy 03/31/2024 Morbid obesity due to excess calories 03/31/2024 Sacroiliitis 12/08/2022 Sacroiliitis 12/08/2022 Posterior vitreous detachment of right eye 12/17 Allergic rhinitis 03/26/2021 Sudden right hearing loss 12/17/2020 Osteopenia 10/23/2020 Adjustment disorder with mix ed disturbance of emotions and conduct 08/06/2020 Chronic systolic heart failure 07/16/2020 Lumbar stenosis 09/23/2019 Overview (09/30/2019): followed by Dr Jiang Type 2 diabetes mellitus wit h hemoglobin A1c goal of less than 7.0% 08/12/2019 HFrEF (heart failure with reduced ejection fract ion) 08/08/2019 Chronic constipation 07/03/2019 No transfusions per confucianism beliefs 11/29/2018 Overview (09/18/2020): Update of IMO term Hyperlipidemia with target LDL less than 100 05/2016 Long QT interval 10/16/2016 Overview (10/16/2016): per Rheum Dr Rivera Fibromyalgia 09/17/2015 Migraine without aura and wi thout status migrainosus, not intractable 01/18/2015 Female stress incontinence 12/22/2006 Displacement of lumbar inter vertebral disc without myelopathy 11/12/2003 Overview (11/12/2003): laminectomy for L4-5 radiculopathy ZACKARY on CPAP 04/17/2003 DIVERTICULOSIS OF COLON Gastroesophageal reflux disease without esophagi tis Overview (02/23/2017): ICD-10 update of inactive term Cataract Overview (08/10/2012): Claudia Dry eyes, bilateral Overview (08/10/2012): Dr Sutherland documented as of this encounter (statuses as of 04/20/2024) Resolved Problems Problem Noted Date Diagnosed Date Resolved Date Suspected COVID-19 virus infection 03/26/2021 12/03/2021 Sigmoid diverticulitis 11/27/201812/03 Closed rib fracture 05/31/2018 09/22/19 19 Overview (05/31/2018): R 10th due to fall Morbid obesity with body mas s index of 45.0-49.9 in adult 01/27/2018 12/03/2021 Body mass index (BMI) of 45. 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 Pain in toe of right foot 04/30/2015 Ingrowing nail 04/30/2015 03/25/2017 Obesity 01/18/2015 05/31/2016 Rotator cuff syndrome 07/25/20142016 Pericarditis 04/24/2012 03/25/2017 Obesity, Class II, BMI 35-39 .9, isolated (see actual BMI) 05/10/2010 02/26/2017 Overview: Per Obesity protocol #1 Severe obesity with body mas s index (BMI) of 35.0 to 39.9 with serious comorbidity 11/05/2009 Overview (03/10/2018): Per Obesity Protocol, #19 ICD-10 update of inactive diagnosis Calculus of kidney 12/22/2006 7 Urinary frequency 12/22/2006 03/25/2017 Nocturia 12/22/2006 03/25/2017 Incomplete bladder emptying 12/22/2006 03/25/2017 Urge incontinence 12/22/2006 03/25/2017 Neurogenic bladder 12/22/2006 7 ADVANCE DIRECTIVE INFORMATION 03/25/2006 03/28/2024 Overview (03/25/2006): No, Advance Directive brochure offered , patient declined. Other specified gastritis wi thout mention of hemorrhage 09/13/2004 03/25/2017 Overview (09/27/2004): Mild gastritis/biopsy, Dr. Venegas Closed fracture of pelvis 08/12/2004 Overview (08/26/2004): Dr. Rivera Spinal stenosis, unspecified region other than cervical 04/17/2003 05/10/2010 Fibromyalgia 05/31/2016 COMMON MIGRAINE WITHOUT MENT ION OF INTRACTABLE MIGRAINE 11/08/2018 EPILEPSY;NONCONV,W/O INTRACTABLE 12/08/2022 Dyslipidemia, goal to be determined 03/25/2017 ABDOMINAL PAIN, UNSPECIFIED SITE 03/25/2017 Other disorder of menstruati on and other abnormal bleeding from female genital tract 03/22/2014 Excessive menstruation 06/02 Meralgia paresthetica 2016 documented as of this encounter (statuses as of 04/20/2024) Immunizations Name Administration Dates Next Due COVID-19 mRNA, LNP-s, No Pre serve, 2-Dose Series (Newsela) 03/14/2021,08/29/2020,08/09/2020 COVID-19, MRNA-LNP, PF, 30 M CG/0.3 mL, 12 YRS AND ABOVE, IM ([facility]) 04/21/2023 COVID-19, mRNA, LNP-s, PF, B ooster, 100mcg/0.5mg (Moderna) 09/16/2021 PPD 12/25/1998 Pneumococcal Conjugate Vacc, 13 Valent (Prevnar) 11/04/2019,01/27/2018 Pneumococcal Polysaccharide PPV23 (Pneumovax) 07/20/2020,05/04/2019,11/20/2005 Seasonal Influenza Vac., MDV , IM, 0.5 mL (Fluzone) 02/23/2014,03/11/2013,03/12/2012,05/16(Deferred: Patient Refused - insurance),05/10/2010,06/08/2009,03/10,03/31/2007,03/25/2006,03/19/2005 Seasonal Influenza, High Dos e, Trivalent, PF, IM (Fluzone HD) 03/07/2024,04/29/2019 Seasonal Influenza, PF, 6 M & above, IM , (FluLaval or Fluzone) 01/27/2018 Seasonal Influenza, Quadriva lent Hd (Fluzone Hd) 04/21/2023,02/27/2022,05/08/2021 Seasonal Influenza, Quadriva lent Hd, 65+ Yrs 03/05/2020 Seasonal Influenza, Quadriva lent, No Preserve, IM 03/11/2017,01/22/2016,03/26/2015 TD, Preservative Free 06/02/2018 TDAP, Age 7 and older, IM (Adacel) 05/02/2008 Varicella Zoster Vaccine (Adult) 06/06/2016 Zoster Vaccine Recombinant (Shingrix) 03/05/2020 documented as of this encounter Social History Tobacco Use Types Packs/Day Years Used Date Smoking Tobacco: Never Cigarettes Smokeless Tobacco: Never Tobacco Cessation:Counseling Given: Not Answered Comments:Never used Alcohol Use Standard Drinks/Week Comments Not Currently 1 (1 standard drink = 0.6 oz pur e alcohol) PHQ-2 Answer Date Recorded PHQ Adult Total Score 0 04/04/2024 Hunger Vital Sign Answer Date Recorded Within the past 12 months, y ou worried that your food would run out before you got the money to buy more. Never true 03/22/20 24 Within the past 12 months, t he food you bought just didn't last and you didn't have money to get more. Never true 03/22/2024 Childcare Answer Date Recorded Do you feel overwhelmed with taking care of a child, family member or friend? No 03/22/2024 Does your family need help f inding childcare? (Household - for ages 0-17 years) Not on file 03/22/2024 Clothing Answer Date Recorded Have you been unable to get clothing when it was really needed? No 03/22/2024 Is your family able to get c lothes or diapers when needed? (Household - for ages 0-17 years) Not on file 03/22/2024 Personal Safety Answer Date Recorded Do you feel unsafe or have concerns for your saf ety? No 03/22/2024 Do you have concerns for you r family's safety? (Household - for ages 0-17 years) Not on file 03/22/2024 Utilities Answer Date Recorded Do you have trouble paying y our heating, water, or electric bill? No 03/22/2024 Is your family able to pay t he heat, water, or electric bill? (Household - for ages 0-17 years) Not on file 03/22/2024 Does your family have access to good internet? (Household - for ages 0-17 years) Not on file 03/22/2024 Employment Status Answer Date Recorded Are you unemployed or without regular income? No 03/22/2024 Does the household have a [facility] source [facility] income? (Household - for ages 0-17 years) Not on file 03/22/2024 Social Connections Answer Date Recorded How often do you feel lonely or isolated from th ose around you? Never 03/22/2024 Financial Resource Strain Answer Date R ecorded Do you have any trouble payi ng for your medications, or do you think you might in the future? No 03/22/2024 Does your family have troubl e paying for medicine? (Household - for ages 0-17 years) Not on file 03/22/2024 Transportation Needs Answer Date Record ed READ ONLY Do you have troubl e getting a ride to medical visits or work? Sometimes True 03/22/2024 Does your family have a hard time getting a ride to doctors visits? (Household - for ages 0-17 years) Not on file 03/22/2024 Has lack of transportation k ept you from medical appointments, meetings, work, or from getting things needed for daily living? Check all that apply. Yes, it has kept me from non-medical meetings, appointments, work, or from getting things that I need 03/22/2024 Do you (or your family) have trouble finding or paying for a ride (transportation)? (Household - for ages 0-17 years) Not on file 03/22/2024 Housing Stability Answer Date Recorded Do you currently live in a s helter or have no steady place to sleep at night? No 03/22/2024 READ ONLY Do you think you a re at risk of becoming homeless? No 03/22/2024 Does your family worry about paying for your home or becoming homeless? (Household - for ages 0-17 years) Not on file 1 Are you homeless or worried that you might be in the future? No 03/22/2024 Are you (or your family) merritt eless or worried that you might be in the future? (Household - for ages 0-17 years) Not on file Food Insecurity Answer Date Recorded Do you need food for this week? No 03/22/2024 Are you able to get enough f ood for your family? (Household - for ages 0-17 years) Not on file 03/22/2024 Does your family need food t his week? (Household - for ages 0-17 years) Not on file 03/22/2024 Do you always have enough fo od for your family? 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 Answer Date of Assessment Author No 11/27/2018 10:34 PM EDT Lena Betancur, RN * Are you blind or do you have serious difficulty seeing, even when wearing glasses? Answer Date of Assessment Author No 11/27/2018 10:34 PM EDT Lena Betancur RN * Do you have serious difficulty walking or climbing stairs? (5 years old or older) Answer Date of Assessment Author Yes 11/27/2018 10:34 PM EDT Lena Betancur RN * Do you have difficulty dressing or bathing? (5 years old or older) Answer Date of Assessment Author No 11/27/2018 10:34 PM EDT Lena Betancur RN * Because of a physical, mental, or emotional condition, do you have difficulty doing errands alone such as visiting a doctors office or shopping? (15 years old or older) Answer Date of Assessment Author Yes 11/27/2018 10:34 PM Lena Paulson RN documented as of this encounter Mental Status * Because of a physical, mental, or emotional condition, do you have serious difficulty concentrating, remembering, or making decisions? (5 years old or older) Answer Entry Date Author No 11/27/2018 10:34 PM Lena Paulson RN documented in this encounter Patient Instructions * Patient Instructions* Gayle Trinh, MED ASSIST - 04/02/2024 7:59 AM EST Preop it is important to stay well rested, well hydrated and use good nutrition Stay away from ill people if possible ~~PATIENT INSTRUCTIONS FOR SHINGRIX VACCINE~~ Possible side effects of Shingrix vaccine, (shingles), are usually mild and can include: 1. Soreness or redness at injection site 2. Low grade fever 3. Body aches You may use a fever / pain reducing medication as needed for these symptoms. LET YOUR DOCTOR KNOW IMMEDIATELY IF YOU HAVE DIFFICULTY BREATHING OR SWALLOWING, EXPERIENCE ITCHINGOF FEET OR HANDS, HAVE SWELLING OF EYES, FACE OR INSIDE OF NOSE. ~~PATIENT INSTRUCTIONS FOR SHINGRIX VACCINE~~ Possible side effects of Shingrix vaccine, (shingles), are usually mild and can include: 1. Soreness or redness at injection site 2. Low grade fever 3. Body aches You may use a fever / pain reducing medication as needed for these symptoms. LET YOUR DOCTOR KNOW IMMEDIATELY IF YOU HAVE DIFFICULTY BREATHING OR SWALLOWING, EXPERIENCE ITCHINGOF FEET OR HANDS, HAVE SWELLING OF EYES, FACE OR INSIDE OF NOSE. Diabetes: Keeping Feet Healthy Inspect your feet every day for signs of a problem. Diabetes can damage nerves in your feet and cause neuropathy. This condition makes it hard for you to feel injuries or sore spots. Diabetes can also change blood flow, making it harder for small problems, like a blister, to heal properly. In fact, minor injuries can quickly become serious infections that send you to the hospital. Practice self-care to protect your feet and keep them healthy. Take Special Care Inspect your feet daily for problems such as redness, blisters, cracks, dry skin, or numbness. Use a mirror to see the bottoms of your feet. Or, ask for help. Manage your diabetes. Monitor and control your blood sugar. Take all your medications as prescribed. Avoid walking barefoot, even indoors. Wash your feet with warm water and mild soap. Dry well, especially between toes. Dont treat corns or calluses yourself. Talk to your doctor or design sales consultant (a doctor who specializes in foot care) if you need assistance trimming your toenails. Use moisturizing cream or lotion if you have dry skin, but dont use it between toes. Dont use heating pads on your feet. If you have neuropathy, you could get a burn and not feel it. Stop smoking. Smoking restricts blood flow and can make it harder for wounds to heal. Have Regular Checkups Foot problems can develop quickly. So be sure to follow your healthcare teams schedule for regular checkups. During office visits, take off your shoes and socks as soon as you get in the exam room. Ask your healthcare provider to examine your feet for problems. This will make it easier to find and treat small skin irritations before they get worse. Regular checkups can also help keep track of the blood flow and feeling in your feet. If you have neuropathy, you may need to have checkups more often. Wear Proper Footwear Wearing proper footwear is very important. If areas of your feet have been damaged by too much pressure, your healthcare provider may recommend changing your footwear. In some cases, avoiding high heels or tight work boots may be all thats needed. Or, your healthcare provider may recommend special shoes or custom inserts. These help protect your feet and keep existing irritations from getting worse. If you need special footwear, ask your healthcare provider if you qualify for [facility] diabetic shoe program. Make Sure Shoes and Socks Fit Any pair of shoes--new or old--should feel comfortable as soon as you put them on. There shouldnt be any rubbing when you walk. Wear the right shoe for any activity. For instance, a running shoe is designed to keep your feet injury-free while jogging. Buy shoes at the end of the day, when your feet are larger. Make sure they provide support without feeling too loose. Make sure your socks fit, t oo. Wear soft, seamless, well-padded socks for activity. Cotton or microfiber socks are best to help to absorb sweat. To protect your feet, avoid shoes that are open-toed or open-heeled. If you have questions about what kinds of shoes and socks are best, talk to your healthcare team. Get Regular Exercise Regular exercise improves blood flow in your feet. It also increases foot strength and flexibility.Gentle exercises, like walking or riding a stationary bicycle, are best. You can also do special foot exercises. Just be sure to talk with your healthcare provider before starting any exercise program. Also mention if any exercise causes pain, redness, or other signs of foot problems. Note: If you have any kind of break in the skin of your foot or ankle, keep the area clean. Then call your doctor--especially if the area doesnt appear to be healing. [id number] The [employer], [address] [place] [address], [place] [address]. All rights reserved. This information is not intended as a substitute for professional medical care. Always follow your healthcare professional's instructions. documented in this encounter Progress Notes * Gayle Trinh, MED ASSIST - 04/04/2024 9:07 AM EST Gayle Trinh MED ASSIST, 04/04/2024, 9:07 AM Socks and Shoes Removed for Annual Diabetic Foot Screening RIGHT FOOT: No Reddened, Cracking, Or Open Areas Noted. RIGHT Dorsalis Pedis Pulse: Unable to locate RIGHT Posterior Tibial Pulse: Unable to locate RIGHT Monofilament:Patient reports feeling monofilament pressure on plantar surface of foot LEFT FOOT: No Reddened, Cracking or Open Areas Noted. LEFT Dorsalis Pedis Pulse: Unable to locate LEFT Posterior Tibial Pulse: Unable to locate LEFT Monofilament:Patient reports feeling monofilament pressure on plantar surface of foot Do you need diabetic shoes: N/A DM Foot Exam completed today. Provider aware. Gayle Trinh MED ASSIST * Araceli Mays MD - 03/31/2024 12:25 PM EST Nuvia Mast is a 73 year old female who present for a preop exam HPI: Nursing Notes: Gayle Trinh, MED ASSIST 04/04/24 0920 Addendum Chief Complaint Patient presents with Physical-Exam Patient here for yearly physical and preop clearance. 05/02 - surgery at [facility]. Patient will receive form on 04/12 for provider to fill out. Immunizations Shingrix Patient would like to get Shingrix but unsure if it's appropriate with surgery coming up. Patient has appt with ophthalmology Dec. As above blood pressure stable Wt Readings from Last 3 Encounters: 04/04/24 116.8 kg (257 lb 6.4 oz) 03/07/24 116.4 kg (256 lb 11.2 oz) 08/24/23 118.8 kg (262 lb) Patient is scheduled for right sacroiliac joint fusion per Dr. Zay Jiang on 05/02/2024 She has has a longstanding low back and hip pain No previous anesthesia complications No family history of hyperthermia No loose teeth And has multiple medical issues Current Outpatient Medications Medication Sig Dispense Refill Cholecalciferol (VITAMIN D3) 1.25 MG (26506 UT) Capsule One capsule once a week x 3 months 4 Cap 3 aspirin enteric coated 81 MG TBEC Take 1 Tab by mouth daily. 30 Tab 5 Blood Glucose Monitoring Suppl ([employer] BLOOD GLUCOSE METER) w/Device KIT Please use to test blood sugar once daily or as directed. ICD E11.9 1 Kit 0 CPAP every night at bedtime. Auto 12-20 cm True Metrix Blood Glucose Test In Vitro Strip (Glucose Blood) USE DIRECTED TO CHECK BLOOD SUGAR TWICE A DAY. E11.9 200 Strip 5 TRUEplus Lancets 33G USE TO CHECK BLOOD SUGAR TWICE DAILY OR DIRECTED. E11.9 150 Each 11 Lasmiditan Succinate 100 MG Oral Tablet (Reyvow) TAKE 1 TABLET BY MOUTH AT ONSET OF MIGRAINE. NO MORE THAN 1 DOSE IN 24 HOURS 8 Tablet 5 Prolia 60 MG/ML Subcutaneous Solution Prefilled Syringe (Denosumab) Inject 60 mg under the skin once. Vitamin B-12 1000 MCG Oral Tablet (Cyanocobalamin) Take 1 Tablet by mouth in the morning. Azelastine HCl 0.1 % Nasal Solution (Astelin) Administer 1 [place] into nostril in the morning and 1 [place] before bedtime. 30 mL 12 Clobetasol Propionate 0.05 % External Gel (Temovate) Apply topically to affected area 2 times a day. Apply to behind each ear as needed Sulfamethoxazole-Trimethoprim 800-160 MG Oral Tablet (Bactrim DS) Take 1 Tablet by mouth in the morning and 1 Tablet before bedtime. Use as directed.. 30 Tablet 6 Estradiol 0.1 MG/GM Vaginal Cream (Estrace) Administer 1 g into the vagina once a day on Thursday, Thursday, and Thursday only. 13 g 10 ZyrTEC Allergy 10 MG Oral Capsule (Cetirizine HCl) Take 1 Capsule by mouth in the morning. Lubiprostone 8 MCG Oral Capsule (Amitiza) TAKE TWO CAPSULES BY MOUTH TWICE DAILY with morning and evening meals 360 Capsule 3 Omeprazole 20 MG Oral Capsule Delayed Release (PriLOSEC) TAKE ONE CAPSULE BY MOUTH IN THE MORNING AND AT BEDTIME 180 Capsule 3 Metoprolol Succinate ER 50 MG Oral Tablet Extended Release 24 Hour (toPROL XL) Take 1 Tablet by mouth in the morning and 1 Tablet before bedtime. ]. 60 Tablet 3 Escitalopram Oxalate 20 MG Oral Tablet (Lexapro) TAKE ONE TABLET BY MOUTH EVERY MORNING 90 Tablet 3 SITagliptin Phosphate 50 MG Oral Tablet (Januvia) Take 1 Tablet by mouth in the morning. 90 Tablet 3 Acetaminophen 500 MG Oral Capsule Take 2 Capsules by mouth 3 times a day as needed for Pain, Mild, Pain, Moderate or Pain, Severe. Tylenol PM Extra Strength 500-25 MG Oral Tablet (diphenhydrAMINE-APAP (sleep)) Take 1 Tablet by mouth at bedtime as needed for Sleep (or pain). Do not take with plain Tylenol, can only have one or the other for any given dose Miconazole Nitrate 2 % External Ointment (Triple Paste AF) Ketoconazole 2 % External Shampoo (Nizoral) Apply to scalp every 2-3 days. Leave on for 5 minutes before rinsing. 120 mL 5 Topiramate 25 MG Oral Tablet (topAMAX) Use to wean of AM dose of topirimate 100 mg as follows. 75 mg in AM for 1 week, then 50 mg in AM for 1 week, then 25 mg in AM for 1 week, then stop AM dose of topirimate, leaving only 100 mg at night 42 Tablet 0 Topiramate 100 MG Oral Tablet (topAMAX) Take 1 Tablet by mouth every night at bedtime. Pharmacy canput on file until requested by patient 30 Tablet 5 Dicyclomine HCl 10 MG Oral Capsule (Bentyl) Take 1 Capsule by mouth 3 times a day as needed for Pain, Mild. As needed for abdominal pain/cramping. 180 Capsule 0 Lidocaine 5 % External Patch (Lidoderm) Place 1 Patch over 12 hours topically on the skin daily. 30Patch 2 Pregabalin 150 MG Oral Capsule (Lyrica) Take 1 Capsule by mouth in the morning and 1 Capsule at noon and 1 Capsule before bedtime. 90 Capsule 2 Emgality 120 MG/ML Subcutaneous Solution Auto-injector (Galcanezumab-[facility]) Inject 1 mL under the skin every month. 1 mL 3 Celecoxib 200 MG Oral Capsule (CeleBREX) Take 1 Capsule by mouth in the morning and 1 Capsule before bedtime. 60 Capsule 5 Lubiprostone 24 MCG Oral Capsule (Amitiza) Take 1 Capsule by mouth 2 times a day with morning and evening meals. 60 Capsule 5 DULoxetine HCl 60 MG Oral Capsule Delayed Release Particles (Cymbalta) Take 1 Capsule by mouth in the morning and 1 Capsule before bedtime. 180 Capsule 1 Motegrity 2 MG Oral Tablet (Prucalopride Succinate) TAKE ONE TABLET BY MOUTH EVERY MORNING 90 Tablet 3 Baclofen 10 MG Oral Tablet (Lioresal) Take 1 Tablet by mouth in the morning and 1 Tablet at noon and 1 Tablet before bedtime. As needed. 90 Tablet 0 Atorvastatin Calcium 40 MG Oral Tablet (Lipitor) Take 1 Tablet by mouth in the morning. 90 Tablet 0 Valsartan 40 MG Oral Tablet (Diovan) Take 1 Tablet by mouth in the morning. 90 Tablet 1 No current facility-administered medications for this visit. Past Medical History: Diagnosis Date Abnormal ECG July 2019 Adjustment disorder with mixed disturbance of emotions and conduct 08/06/2020 Asthma 1989 Calculus of kidney 1980 Cataract 2012 Claudia CHF (congestive heart failure) ([facility]) July 2019 Closed fracture of pelvis ([facility]) 08/12/2004 Dr. Rivera Closed rib fracture 05/31/2018 R 10th due to fall Colon polyps Coronary artery disease 12/23/2018 Diabetes mellitus ([facility]) 06/25/2019 Displacement of lumbar intervertebral disc without myelopathy 2004 laminectomy for L4-5 radiculopathy Diverticulitis Hospitalized November 2018 Diverticulosis of colon 09/1998 per colonoscopy by Theo Dry eyes, bilateral 2012 Dr Sutherland Edema 09/1989 SECONDARY OT THORACIC OUTLET SYNDROME Escherichia coli (E. 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 Triglycerides always high Hyperlipidemia LDL goal < 100 10/25/1997 Hypertension 07/24/2019 IBS (irritable bowel syndrome) Incomplete bladder emptying 12/22/2006 Kidney disease 1980s Lactose intolerance 05/25/1999 Long QT interval 10/16/[address] Rivera Lumbago 05/1993 Lumbar stenosis 09/[address] Jiang Malaise and fatigue 10/1993 MEDICATION USE AGREEMENT [address] Rivera [employer] Meralgia paresthetica 06/2001 seen by Mak-left thigh pain Migraine without aura 08/1988 Myalgia and myositis 10/1993 fibromyalgia Nocturia 12/22/2006 Osteoarthritis mod to severe bilat feet by 2013 xrays Other specified gastritis without mention of hemorrhage 09/13/2004 Mild gastritis/biopsy, Dr. Venegas Pericardial effusion 04/2012 Hemodynamically insignificant Pericarditis 04/24/2012 Renal colic 11/2006 Sleep apnea 2002 CPAP-at 11cm H2O in 10/2010 at 15cm H2O with med mask 01/2013 Spinal stenosis, unspecified region other than cervical 02/2003 with lumbar disc displacement per Miguel-see scan Status asthmaticus 10/1993 Urge incontinence 12/22/2006 Urinary frequency 12/22/2006 UTI (urinary tract infection) Past Surgical History: Procedure Laterality Date ADULT ECHOCARDIOGRAM 09/04/2004 normal LVS function, EF of 60%, Dr. Gardner ANESTHESIA, PELVIC SURGERY 08/[address] Worthy-neg ARTHROCENT ASP &/OR INJ MAJOR JX/BURSA W/O US Right 01/22/2018 ARTHROCENTESIS OR INJECTION MAJOR JOINT performed by Nayla Otero MD at OR [facility] COLONOSCOPY 06/25/[address] Venegas-repeat 5yr COLONOSCOPY 09/07/2015 3 polyps-adenomas per Dr Villanueva; sigmoid tics COLONOSCOPY 11/01/[address] Villanueva-2 polyps COLONOSCOPY 02/27/2022 diverticulosis sigmoid colon/non-bleeding internal hemorrhoids/biopsies show adenomatous polyps/recall 3 years/Colonoscopy COLONOSCOPY, DIAGNOSTIC (RECTUM) 09/03/2004 Diverticulosis of sig. colon, Dr. Venegas COLONOSCOPY, DIAGNOSTIC (RECTUM) N/A 02/27/2022 COLONOSCOPY FLEXIBLE PROXIMAL DIAGNOSTIC performed by Mirna Hernandez MD at OR [facility] COLORECTAL CANCER SCREEN; COLON 08/1998 per Theo-one polyp and diverticulosis DEXA SCAN/BONE MINERAL AXIAL 02/11/2006 high risk of fx-on Forteo DEXA SCAN/BONE MINERAL AXIAL 03/11/2013 lumbar compression fx per Dr Rivera DEXA SCAN/BONE MINERAL AXIAL 07/16/[address] Rivera her track sweeper-no change from the March 2019 study still high risk for fracture DILATION AND CURETTAGE (D&C) 1980 REMOVAL OF GROWTH IN UTERUS DOBUTAMINE STRESS ECHO 07/04/2013 neg ischemia ECHO (2-D COMPLETE) 09/30/2005 wnl EGD, FLEXIBLE, DIAGNOSTIC 09/07/2015 multiple gastric polyps EGD, FLEXIBLE, DIAGNOSTIC N/A 02/27/2022 gastric polyps/biopsies show fundic gland polyps/EGD EGD, FLEXIBLE, DIAGNOSTIC N/A 02/27/2022 ESOPHAGOGASTRODUODENOSCOPY (EGD), FLEXIBLE, TRANSORAL, DIAGNOSTIC performed by Mirna Hernandez MD at OR [facility] EMG 1 EXTREMITY 07/05/2008 Left L3 radiculopathy per Dr Corado-going for injections per Dr Coburn FLUORO SMALL BOWEL SERIES 01/15/2007 opacified transverse colon on sm bowel films-Kay HEMILAMINECTOMY, CERVICAL/LUMBAR, EA. ADD'L 2004 Laminectomy for L4-5 radiculopathy INFORMATION 07/05/2004 R L4-L5 transforaminal epidural steroid injections, Dr. Coburn INJECT DX/THER SUBSTANCE INTERLAMINAR LUMBAR/SACRAL W IMAGE GUIDE N/A 08/10/2017 INJECTION SPINE LUMBAR OR SACRAL performed by Nayla Otero MD at OR [facility] INJECT DX/THER SUBSTANCE INTERLAMINAR LUMBAR/SACRAL W IMAGE GUIDE N/A 02/26/2018 INJECTION SPINE LUMBAR OR SACRAL performed by Nayla Otero MD at OR [facility] INJECT DX/THER SUBSTANCE INTERLAMINAR LUMBAR/SACRAL W IMAGE GUIDE N/A 08/05/2018 INJECTION SPINE LUMBAR OR SACRAL performed by Nayla Otero MD at OR [facility] INJECT DX/THER SUBSTANCE INTERLAMINAR LUMBAR/SACRAL W IMAGE GUIDE N/A 12/09/2019 INJECTION SPINE LUMBAR OR SACRAL performed by Nayla Otero MD at OR [facility] KNEE ARTHROSCOPY, DIAGNOSTIC 10/[address] John at [facility] KNEE ARTHROSCOPY, DIAGNOSTIC 01/[address] Dunn LIGATE/CUT OVIDUCT(S) 1980 Tubal Ligation MISCELLANEOUS ORDER 1987 REMOVAL OF TUMOR RIGHT 4TH FINGER MULTIPLE SLEEP LATENCY TEST 01/2003 sleep apnea seen at then CPAP f/u study-[id number] CPAP NM MYOCARDIAL PERFUSION IMAGING SPECT MULTIPLE STUDIES WITH PHARMACOLOGIC INTERVENTION 01/25/2015 neg Lexiscan at [facility] OTHER Act 112 Dr. Roque 10/25/2020 OTHER (INFORMATION) ACT [address] BECKETT (10-11-21) PAP SCREEN 08/2000 Dr Worthy REMOVAL OF INNER EYE FLUID Right 12/25/2021 VITRECTOMY MECHANICAL PARS PLANA APPROACH performed by Kayden Beckett MD at [facility] REMOVE CATARACT, INSERT LENS PROSTH Right 06/10/2016 Dr Higgins [place] REMOVE CATARACT, INSERT LENS PROSTH Left 07/01/2016 Dr Higgins [place] REPAIR LUMBAR HERNIA 09/11/[address] Jiang 4 screws with a puneet REPAIR RUPTURED ROTATOR CUFF, CHRON 08/22/2014 Right Pr Tatiana Dunn SACROILIAC JOINT INJECT W/GUIDANCE Right 04/01/2018 INJECTION SACROILIAC JOINT performed by Nayla Otero MD at OR [facility] SIGMOIDOSCOPY, DIAGNOSTIC SLEEP APNEA EDU. 2001 neg per Mak-at [facility] SLEEP STUDY, W/ CPAP (TREATMENT SETTINGS) 07/2009 mod sleep apnea SLEEP STUDY, W/ CPAP (TREATMENT SETTINGS) fall 2011 18cm U2P-DnweztMedlio and Carol Ann MAENP at [facility] now on 15cm H2O withDr Cornejo UPPER ENDOSCOPY GI REFERRAL OP 09/13/2004 Gastric biopsy, neg., mild gastritis, Dr. Venegas UPPER ENDOSCOPY GI REFERRAL OP 11/[address] Villanueva =esophagitis UPPER GI ENDOSCOPY UPPER GI ENDOSCOPY/EXAM 08/18/2001 esophagitis and gastritis-see scan-jeffery Venegas Review of patient's allergies indicates: Allergen Reactions Ajovy [Fremanezumab-Vfrm] Other (Please comment) Head pain x 3 days straight Ergotamine Tartrazine CAFERGOT,NAUSEA AND VOMITING Tizanidine Other (Please comment) Makes me see weird things Wellbutrin [Bupropion Hcl] Other (Please comment) aggitated Social History Tobacco Use Smoking status: Never Smokeless tobacco: Never Tobacco comments: Never used Substance Use Topics Alcohol use: Not Currently Alcohol/week: 1.0 standard drink of alcohol Types: 1 5 oz of wine per week Comment: Twice a year Vaping/E-Cigarette Use Vaping/E-Cigarette Use Never User Family History Problem Relation Name Age of Onset Hypertension Mother Samra present Hypertension Asthma Mother Samra has asthma brought on by cats,dust,smoke Neurological Disorder Mother Samra migraines Eye Problems Mother Samra cataracts Allergies Mother Samra asthma due to cats, dust, smoke etc Arthritis Mother Samra back Other (osteoporosis) Mother Samra Inflammatory bowel disease Mother Samra Irritable Bowel Syndrome Mother Samra Psoriasis Mother Samra Hypertension Father Jaylan Ceballos Lung cancer, kidney stone history, Lung Disorder Father Jaylan Ceballos Lung cancer, kidney stone history, Cancer Arthritis Father Jaylan Ceballos Lung cancer, kidney stone history, Cancer Father Jaylan Ceballos Lung cancer, kidney stone history, lung cancer Eye Problems Father aJylan Ceballos Lung cancer, kidney stone history, cataracts Obesity Father Jaylan Ceballos Lung cancer, kidney stone history, Colon polyps Father Jaylan Ceballos Lung cancer, kidney stone history, Anemia Father Jaylan Ceballos Lung cancer, kidney stone history, Hyperlipidemia Father Jaylan Ceballos Lung cancer, kidney stone history, Other (MVA) Sister Gita Robles Obesity Brother Devin Ceballos sleep apnea Allergies Brother Devin Ceballos seasonal Asthma Brother Devin Ceballos had as child, not now Arthritis Brother Devin Ceballos hips Cancer Grandmother (Paternal) Jessie stomach Cancer Grandmother (Paternal) Jessie Ceballos stomach cancer Diabetes Grandfather (Paternal) Bryan Tucker Heart attack Grandfather (Paternal) Bryan Hudson Heart disease Grandfather (Paternal) Bryan Tucker Heart failure Grandfather (Paternal) Bryan Hudson Allergies Daughter Esther seasonal Allergies Daughter Kym seasonal Asthma Daughter Barbara had as baby, not now Other (none) Daughter Barbara unaware of family hx of skin related ca or disease Breast Cancer Cousin (Maternal) PE: WD WN in No apparent distress VS BP 124/82 (BP Site: Right Arm, BP Position: Sitting, BP Cuff Size: Large) | Pulse 65 | Temp 37.3C (99.1 F) (Tympanic) | Resp 12 | Wt 116.8 kg (257 lb 6.4 oz) | LMP 03/08/2008 | SpO2 93% | BMI45.60 kg/m | BSA 2.28 m LMP 03/08/2008 HEENT: NC/AT EOMI PERRLA NOSE: no discharge MUCOUS MBS: no lesions and moist DENTITION: good Neck: supple and no adenopathy Thyroid: normal to inspection and palpation Lungs: Lungs clear to auscultation Heart: regular rate and rhythm Abdomen: normal Skin: no rash and no bruising EXT: no edema ASSESSMENT/PLAN: Sacroiliitis (HCC) (Primary) Care per Dr Jiang Pre op EKG today Taking Vit D per Deidre pre and post op And will have a collagen dressing Current moderate episode of major depressive disorder, unspecified whether recurrent (HCC) On citalopram Inflammatory polyarthritis (HCC) Cont current mets Date & Time 05/09/2024 10:30 AM Provider Danny Florence CRNP Department Rheumatology [facility] Cardiomyopathy, unspecified type ([facility]) and Chronic systolic heart failure ([facility]) And Long QT interval needs cardiac clearance. usually sees jeff Byrd to reece Date & Time 04/13/2024 9:00 AM Provider [facility] Morbid obesity due to excess calories ([facility]) diet and exercise encouraged Type 2 diabetes mellitus with hemoglobin A1c goal of less than 7.0% ([facility]) Hemoglobin AIC Results: Lab Results Component Value Date/Time HEMOGLOBIN A1C - [facility] 5.9 (H) 03/23/2024 08:09 AM HEMOGLOBIN A1C - [facility] 5.9 (H) 12/30/2023 08:59 AM HEMOGLOBIN A1C - [facility] 6.0 (H) 08/25/2023 07:39 AM HEMOGLOBIN A1C - [facility] 6.6 (H) 05/04/2020 08:18 AM HEMOGLOBIN A1C - [facility] 6.4 (H) 11/16/2019 10:04 AM HEMOGLOBIN A1C - [facility] 8.2 (H) 08/08/2019 11:17 AM ADULT/PEDS OPHTHALMOLOGY/OPTOMETRY REFERRAL OP Hyperlipidemia with target LDL less than 100 Lab Results Component Value Date/Time LDL (CALCULATED) 135. (H) 08/10/1996 10:45 AM LDL CHOLESTEROL (CALCULATED) - [facility] 05/04/2020 08:18 AM Uninterpretable, recommend direct LDL cholesterol testing. LDL CHOLESTEROL (DIRECT MEASURE) - [facility] 48 03/23/2024 08:09 AM LDL CHOLESTEROL (DIRECT MEASURE) - [facility] 51 05/04/2020 08:18 AM On atorvastain Gastroesophageal reflux disease without esophagitis On PPI No transfusions per confucianism beliefs . Cardiology clearance pending And can fill out from after cardiac clearnace Holging more immunization untl post op I do not expect medical complications of planned procedure Follow-up: Return Needs 6 and 12 months follow-ups and p.r.n.. | Check-out note: Visit date not found Addendum 04/20/2024 Patient seen by Cardiology on 04/13/24-no acute issues and had a Lexiscan 04/18/2024: "Interpretation Summary Lexiscan nuclear cardiac stress test negative for ischemia. The LV ejection fraction is calculated at 72%. Gated SPECT images reveals normal myocardial thickening and wall motion" I still not not expect any medical complications planned procedure MD Araceli Pedersen MD documented in this encounter Nursing Notes * Gayle Trinh, MED ASSIST - 04/04/2024 9:08 AM EST Chief Complaint Patient presents with Physical-Exam Patient here for yearly physical and preop clearance. 05/02 - surgery at [facility]. Patient will receive form on 04/12 for provider to fill out. Immunizations Shingrix Patient would like to get Shingrix but unsure if it's appropriate with surgery coming up. Patient has appt with ophthalmology Dec. documented in this encounter Plan of Treatment Upcoming Encounters Date Type Department Care Team (Late st Contact Info) Description 06/08/2024 2:00 PM EST Telemedicine [facility] [address] [phone] [facility] [address] [phone] 07/07/2024 12:00 PM EST Office [facility] [place] [address] [place] [address] Alexandra Jones PA-C [address] [place] [id number] 08/09/2024 10:00 AM EDT [facility] [address] [phone] [facility] [address] [facility] [phone] 10/05/2024 12:50 PM EDT Office Visit [facility] [address] [phone] Yashira Kidd MD [address] [place] [place] [address] 03/16/2025 3:00 PM EDT [facility] [address] [place] [address] Lissette Mullen MD [address] [place] [address] 06/09/2025 10:00 AM EST Office Visit [facility] [address] [place] [address] Araceli Mays MD [address] [place] [address] Scheduled Procedures Name Priority Associated Diagnoses Date/Ti me COLONOSCOPY FLEXIBLE PROXIMA L DIAGNOSTIC Recall History of colonic polyps Scheduled Referrals Name Type Priority Associated Diagnoses Orde r Schedule ADULT/PEDS OPHTHALMOLOGY/OPTOM ETRY REFERRAL OP Referral Within 10 days (routine) Type 2 diabetes mellitus with hemoglobin A1c goal of less than 7.0% (HCC) Ordered: 03/31/2024 Health Maintenance Due Date Last Done Comments Cologuard 1997 Sigmoidoscopy 1997 Fecal Occult Blood Test 03/27/2017 03/27/20 16, 03/26/2015, 03/22/2014, Additional history exists Zoster Vaccines (3 of 3) 04/30/2020 03/05/2020, 05/25 Adult Wellness Visit 05/20/2022 05/20/2021 Diabetic Eye Exam 09/27/2023 09/26/2022, , 09/26/2022, Additional history exists COVID-19 Vaccine ( season) 2024 04/21/2023, 09/16/2021, 03/14/2021, Additional history exists Mammogram 06/05/2024 06/05/2023, 04/25, 12/07/2020, Additional history exists Albumin/Creatinine Ratio 08/24/2024 024, 07/20/2023, 08/25/2022, Additional history exists HbA1c 09/21/2024 03/23/2024, 08/0 11/2023, 08/25/2023, Additional history exists Colonoscopy 02/27/2025 02/27/2022, 10/0 10/2021, 11/01/2018, Additional history exists Colorectal Cancer Screening 02/27/2025 Depression Monitoring 04/04/2025 04/04/2024 Diabetic Foot Exam 04/04/2025 04/04/2024, 1 , 05/08/2021, Additional history exists GFR 04/12/2025 04/12/2024, 04/0 06/2023, 03/13/2023, Additional history exists DTap/Tdap Vaccines (3 - Td or Tdap) 06/02/2028 06/02/2018, 05/02/2008 Lipid Panel 03/23/2029 03/23/2024, 02/23, 01/13/2023, Additional history exists DXA Scan 08/02/2030 08/03/2023, 06/26, 07/16/2021, Additional history exists Pneumococcal Vaccine: 65+ Years Completed 07/20/2020, 11/04/2019, 05/04/2019, Additional history exists Influenza Vaccine (FLU shot) Completed , 04/21/2023, 02/27/2022, Additional history exists HPV (Gardasil) Vaccine Aged Out No lo nger eligible based on patient's age to complete this topic Hepatitis B Vaccine Aged Out No longe r eligible based on patient's age to complete this topic MENINGOCOCCAL (MENACTRA/MENVEO) Aged Out No longer eligible based on patient's age to complete this topic documented as of this encounter Medical Devices Implanted Type Area Buckle Gluer Device Identifier Shelf Expiration Date Model / Serial / Lot Clip Quick 2.8mm 230cm - [id number] Implanted:Qty : 2 on 02/27/2022 by Mirna Hernandez MD at OR [facility] N/A: Esophagus [employer] 06/04/2024 [id number] / / [id number] Description:[email or web address] documented as of this encounter Results * EKG (04/04/2024 10:02 AM EST) 04/04/2024 10:0 2 AM EST Narrative Procedure Note Elias Browning DO - 04/04/2024 10:02 AM EST REASON FOR STUDY: PRE OP CONCLUSIONS: Normal sinus rhythm High QRS voltage may be normal variant or due to lve Borderline ECG When compared with ECG of 13-Aug-2020 09:38, No significant change was found Ventricular Rate: 63 Atrial Rate: 63 AK Interval: 170 QRS Duration: 92 QT/QTc: 456/466 ms P-R-T [place]: 11 : -13 : 3 degrees us Araceli Mays MD EKG Final Result [facility] documented in this encounter Visit Diagnoses Diagnosis Pre-operative cardiovascular examination- Primary Sacroiliitis (HCC) Sacroiliitis, not elsewhere classified Current moderate episode of major depressive disorder, unspecified whether recurrent (HCC) Inflammatory polyarthritis (HCC) Unspecified inflammatory polyarthropathy Cardiomyopathy, unspecified type (HCC) Chronic systolic heart failure (HCC) Chronic systolic heart failure Morbid obesity due to excess calories (HCC) Type 2 diabetes mellitus with hemoglobin A1c goal of less than 7.0% (HCC) Hyperlipidemia with target LDL less than 100 Other and unspecified hyperlipidemia Gastroesophageal reflux disease without esophagitis Esophageal reflux Long QT interval Nonspecific abnormal electrocardiogram (ECG) (EKG) No transfusions per confucianism beliefs Refusal of treatment for reasons of pentecostal or conscience Need for vaccination for zoster Need for prophylactic vaccination and inoculation against other viral diseases Pre-operative cardiovascular examination documented in this encounter Advance Directives * Full Code (Latest Code Status on File) Date Activated Date Inactivated Comments 11/27/2018 10:03 PM 11/30/2018 7:05 PM This order re flects the patients wishes and were consensually agreed upon. Question Answer Comments Discussion of Advance Directives occurred with: Patient/Family Does the patient have a Living Will? No Does the patient have Health Care Power of Attor patricia? No Care Teams Airport Sales Agent Relationship Specialty Start Date End Date Araceli Mays MD [address] [place] [address] PCP - General 10/08/01 documented as of this encounter
--- OUTSIDE RECORDS SUMMARY | 2024-05-02 12:17 | External Medical Summary | Summary of Care ---
Author Name Unknown Organization [facility] Address [address] [place] [address] Phone [phone] Care Team Providers Care Schedule Manager Name Role Phone Araceli Mays MD Primary Care Provider [phone] Reason for Visit * Precert (Within 10 days (routine)) - Authorized Specialty Diagnoses / Procedures Referred By Contac t Referred To Contact Radiology Diagnoses Pre-operative cardiovascular examination DAVIS (dyspnea on exertion) HTN, goal below 130/80 Hyperlipidemia with target LDL less than 100 Type 2 diabetes mellitus with hemoglobin A1c goal of less than 7.0% (HCC) Procedures NM MYOCARD PERF IMG SPECT MULT STUDIES WITH PHARM INTERV Nakia Love CRNP [address] [place] [address] Phone: tel: fax: Referral ID Status Reason Start Date Expiration Date V isits Requested Visits Authorized [id number] Authorized Precert 04/13/2024 [id number] Encounter Details Date Type Department Care Team (Latest Contact Info) Description 04/19/2024 8:08 AM EST - 04/19/2024 11:59 PM EST Hospital Encounter Radiology, [facility] [address] [place], [place] [id number] Discharge Disposition: Home - Self Care Allergies Active Allergy Reactions Criticality Noted Date Comments Fremanezumab-Vfrm Other (Please comment) High 2020 Head pain x 3 days straight Ergotamine 07/29/2023 Tartrazine CAFERGOT,NAUSEA AND VOMITING Tizanidine Other (Please comment) 03/07/2024 Makes me see weird things Bupropion Hcl Other (Please comment) 04/01/2012 aggitated documented as of this encounter (statuses as of 04/20/2024) Medications Cholecalciferol (VITAMIN D3) 1.25 MG (75968 UT) Capsule One capsule once a week x 3 months 4 Cap 3 05/26/19 Active aspirin enteric coated 81 MG TBEC Take 1 Tab by mouth daily. 30 Tab 5 08/08/19 Active Blood Glucose Monitoring Suppl ([employer] BLOOD GLUCOSE METER) w/Device KIT Please use to test blood sugar once daily or as directed. ICD E11.9 1 Kit 12/13/19 Active CPAP every night at bedtime. Auto 12-20 cm Active True Metrix Blood Glucose Test In Vitro Strip (Glucose Blood) USE DIRECTED TO CHECK BLOOD SUGAR TWICE A DAY. E11.9 200 Strip 5 06/13/19 Active TRUEplus Lancets 33G USE TO CHECK BLOOD SUGAR TWICE DAILY OR DIRECTED. E11.9 150 Each 06/13/19 Active Lasmiditan Succinate 100 MG Oral Tablet (Reyvow)Indication s:Mixed headache TAKE 1 TABLET BY MOUTH AT ONSET OF MIGRAINE. NO MORE THAN 1 DOSE IN 24 HOURS 8 Tablet 5 09/20/19 Active Azelastine HCl 0.1 % Nasal Solution (Astelin)Indicatio ns:Allergic rhinitis, unspecified seasonality, unspecified trigger Administer 1 [place] into nostril in the morning and 1 [place] before bedtime. 30 mL 12 12/09/19 Active Clobetasol Propionate 0.05 % External Gel (Temovate) Apply topically to affected area 2 times a day. Apply to behind each ear as needed Active Sulfamethoxazole-T rimethoprim 800-160 MG Oral Tablet (Bactrim DS) Take 1 Tablet by mouth in the morning and 1 Tablet before bedtime. Use as directed.. 30 Tablet 6 04/01/20 Active Additional Information Patient not taking.Reported on 04/13/2024 ZyrTEC Allergy 10 MG Oral Capsule (Cetirizine HCl) Take 1 Capsule by mouth in the morning. Active Omeprazole 20 MG Oral Capsule Delayed Release (PriLOSEC)Indicati ons:Gastroesophage al reflux disease with esophagitis, unspecified whether hemorrhage TAKE ONE CAPSULE BY MOUTH IN THE MORNING AND AT BEDTIME 180 Capsule 3 06/08/19 24 Active Metoprolol Succinate ER 50 MG Oral Tablet Extended Release 24 Hour (toPROL XL)Indications:Chr onic systolic heart failure (HCC) Take 1 Tablet by mouth in the morning and 1 Tablet before bedtime. ]. 60 Tablet 3 07/07/19 24 Active Escitalopram Oxalate 20 MG Oral Tablet (Lexapro)Indicatio ns:Adjustment disorder with mixed disturbance of emotions and conduct TAKE ONE TABLET BY MOUTH EVERY MORNING 90 Tablet 3 07/13/19 24 Active SITagliptin Phosphate 50 MG Oral Tablet (Januvia) Take 1 Tablet by mouth in the morning. 90 Tablet 3 07/15/19 24 Active Acetaminophen 500 MG Oral Capsule Take 2 Capsules by mouth 3 times a day as needed for Pain, Mild, Pain, Moderate or Pain, Severe. 07/22/19 24 Active Tylenol PM Extra Strength 500-25 MG Oral Tablet (diphenhydrAMINE-A PAP (sleep)) Take 1 Tablet by mouth at bedtime as needed for Sleep (or pain). Do not take with plain Tylenol, can only have one or the other for any given dose 08/18/19 24 Active Miconazole Nitrate 2 % External Ointment (Triple Paste AF) Active Ketoconazole 2 % External Shampoo (Nizoral)Indicatio ns:Seborrheic dermatitis of scalp Apply to scalp every 2-3 days. Leave on for 5 minutes before rinsing. 120 mL 5 09/09/19 24 Active Topiramate 100 MG Oral Tablet (topAMAX) Take 1 Tablet by mouth every night at bedtime. Pharmacy can put on file until requested by patient 30 Tablet 5 11/04/19 24 Active Dicyclomine HCl 10 MG Oral Capsule (Bentyl)Indication s:Generalized abdominal pain Take 1 Capsule by mouth 3 times a day as needed for Pain, Mild. As needed for abdominal pain/cramping. 180 Capsule 12/03/19 24 Active Lidocaine 5 % External Patch (Lidoderm)Indicati ons:Sacroiliitis (HCC),Displacement of lumbar intervertebral disc without myelopathy Place 1 Patch over 12 hours topically on the skin daily. 30 Patch 2 12/11/19 24 Active Emgality 120 MG/ML Subcutaneous Solution Auto-injector (Galcanezumab-gnlm ) Inject 1 mL under the skin every month. 1 mL 3 03/28/2024 11:23 AM EST 01/15/20 24 Active Celecoxib 200 MG Oral Capsule (CeleBREX)Indicati ons:Displacement of lumbar intervertebral disc without myelopathy,Sacroil iitis (HCC) Take 1 Capsule by mouth in the morning and 1 Capsule before bedtime. 60 Capsule 5 02/04/20 24 025 Active Lubiprostone 24 MCG Oral Capsule (Amitiza)Indicatio ns:Chronic constipation Take 1 Capsule by mouth 2 times a day with morning and evening meals. 60 Capsule 5 03/07/20 24 Active DULoxetine HCl 60 MG Oral Capsule Delayed Release Particles (Cymbalta) Take 1 Capsule by mouth in the morning and 1 Capsule before bedtime. 180 Capsule 1 03/08/20 24 Active Motegrity 2 MG Oral Tablet (Prucalopride Succinate)Indicati ons:Chronic constipation TAKE ONE TABLET BY MOUTH EVERY MORNING 90 Tablet 3 03/10/20 24 Active Atorvastatin Calcium 40 MG Oral Tablet (Lipitor)Indicatio ns:Hyperlipidemia with target LDL less than 100 Take 1 Tablet by mouth in the morning. 90 Tablet 03/21/20 24 Active Valsartan 40 MG Oral Tablet (Diovan)Indication s:HTN, goal below 130/80 Take 1 Tablet by mouth in the morning. 90 Tablet 1 03/24/20 24 Active Zoster Vac Recomb Adjuvanted 50 MCG/0.5ML Intramuscular Suspension Reconstituted (Shingrix)Indicati ons:Need for vaccination for zoster Inject 0.5 mL into a large muscle now and repeat dose in 60 to 180 days 1 Each 1 04/04/20 24 Active Pregabalin 150 MG Oral Capsule (Lyrica)Indication s:Spinal stenosis of lumbar region without neurogenic claudication,Sacro iliitis (HCC) Take 1 Capsule by mouth in the morning and 1 Capsule at noon and 1 Capsule before bedtime. 90 Capsule 2 04/08/20 24 Active Baclofen 10 MG Oral Tablet (Lioresal)Indicati ons:Sacroiliitis (HCC) Take 1 Tablet by mouth in the morning and 1 Tablet at noon and 1 Tablet before bedtime. As needed. 90 Tablet 04/12/20 24 Active Hospital, Clinic, or Other Facility Administered Medication Ordered Dose Route Frequency Start Date End Date Status Regadenoson (Lexiscan) inj 0.4 mgIndications:SOB (shortness of breath) 0.4 mg IV PUSH ONCE 04/19/2024 04/19/2024 End ed sodium chloride 0.9 % flush/inj 10 mLIndications:SOB (shortness of breath) 10 mL IV PUSH ONCE PRN 04/19/2024 04/19/2024 End ed documented as of this encounter (statuses as [...] 08/08/2019 Chronic constipation 07/03/2019 No transfusions per synagogue beliefs 11/29/2018 Overview (09/18/2020): Update of IMO [...] AGREEMENT 05/25/2015 Overview (01/27/2018): with Dr Rivera Sand Buffer Pain in toe of right foot 04/30/2015 [...] mRNA, LNP-s, No Pre serve, 2-Dose Series (Outitude) 03/14/2021,08/29/2020,08/09/2020 COVID-19, MRNA-LNP, PF, 30 M CG/0.3 mL, 12 YRS AND ABOVE, IM ([facility]) 04/21/2023 COVID-19, mRNA, LNP-s, PF, B ooster, 100mcg/0.5mg (Moderna) 09/16/2021 Pneumococcal Conjugate Vacc, 13 Valent (Prevnar) 11/04/2019,01/27/2018 Pneumococcal Polysaccharide PPV23 (Pneumovax) 07/20/2020,05/04/2019,11/20/2005 Seasonal Influenza Vac., MDV , IM, 0.5 mL (Fluzone) 02/23/2014,03/11/2013,03/12/2012,05/16(Deferred: Patient Refused - insurance),05/10/2010,06/08/2009,03/10,03/31/2007,03/25/2006 Seasonal Influenza, High Dos e, Trivalent, PF, [...] Smoking Tobacco: Never Cigarettes Smokeless Tobacco: Never Comments:Never used Alcohol Use Standard Drinks/Week Comments [...] No 03/22/2024 Does the household have a [facility] source of income? 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 Answer Date of Assessment Author No 11/27/2018 10:34 PM EDT Lena Betancur RN * Are you blind or do [...] 11/27/2018 10:34 PM EDT Lena Betancur RN documented as of this encounter Mental Status * Because of a physical, mental, or emotional condition, do you have serious difficulty concentrating, remembering, or making decisions? (5 years old or older) Answer Entry Date Author No 11/27/2018 10:34 PM EDT Lena Betancur RN documented in this encounter Miscellaneous Notes * Ancillary Progress Note - Araceli Martinez RN - 04/19/2024 8:30 AM EST Nuclear stress test completed. documented in this encounter Plan of Treatment Upcoming Encounters Date Type Department Care Team (Late st Contact Info) Description 06/08/2024 2:00 PM EST [facility] [place] [facility] [address] [facility] Cardiology 400 [facility] [place] [address] 07/07/2024 12:00 PM EST Office Visit Gastroenterology, [place] [address] [facility] [place] [phone] Alexandra Jones PA-C 310 [facility] [place] [id number] 08/09/2024 10:00 AM EDT Telemedicine Pharmacy, [place] [address] [facility] [place] [address] [place], [facility] [address] [place] [address] 10/05/2024 12:50 PM EDT Office Visit [facility] [address] [facility] [place] [address] Yashira Kidd MD [address] [facility] [place] [address] 03/16/2025 3:00 PM EDT [facility] [address] [place] [address] Lissette Mullen MD [address] [place] [address] 06/09/2025 10:00 AM EST Office Visit [facility] 27 [facility] [place] [address] Araceli Mays MD [address] [facility] [place] [address] Scheduled Procedures Name Priority Associated Diagnoses Date/Ti me COLONOSCOPY FLEXIBLE PROXIMA L DIAGNOSTIC Recall History of colonic polyps Health Maintenance Due Date Last Done Comments [...] this encounter Medical Devices Implanted Type Area Copyist Device Identifier Shelf Expiration Date Model / Serial / Lot Clip Quick 2.8mm 230cm - [id number] Implanted:Qty : 2 on 02/27/2022 by Mirna Hernandez MD [facility] N/A: Esophagus [employer] 06/04/2024 [id number]-[id number] / / [id number] Description:[email or web address] documented as of this encounter Procedures Procedure Name Priority Date/Time Associated Diagnosis Comments NM MYOCARDIAL PERFUSION IMAGING SPECT MULTIPLE STUDIES WITH PHARMACOLOGIC INTERVENTION Routine 04/19/2024 10:28 AM EST Pre-operative cardiovascular examination DAVIS (dyspnea on exertion) HTN, goal below 130/80 Hyperlipidemia with target LDL less than 100 Type 2 diabetes mellitus with hemoglobin A1c goal of less than 7.0% (HCC) documented in this encounter Visit Diagnoses Diagnosis SOB (shortness of breath)- Primary Shortness of breath documented in this encounter Administered Medications Inactive Administered Medications - up to 3 most recent administrations Medication Order MAR Action Action Date Dose Rate Site Regadenoson (Lexiscan) inj 0.4 mg 0.4 mg, IV Push, ONCE, On Thu04/19/24 at 0816, For 1 dose, Inject over 10 seconds with 5-10 ml saline flush immediately after, Cardiac Studies_HODHOVIndicatio ns:SOB (shortness of breath) Given 04/19/2024 8:22 AM EST 0.4 mg sodium chloride 0.9 % flush/inj 10 mL 10 mL, IV Push, ONCE PRN Other, For Nuclear Stress Only - To follow Lexiscan Administration, Starting on Thu04/19/24 at 0813, Until Thu04/19/24 at 1012, For 2 hours, 5-10 ml Saline Flush to Immediately Follow Lexiscan Injection, Cardiac Studies_HODHOVIndicatio ns:SOB (shortness of breath) Given 04/19/2024 8:22 AM EST 10 mL Technetium Tc 99m Sestamibi (Sestamibi) inj 28 millicurie 28 millicurie, Intravenous, ONCE, On Thu04/19/24 at 0832, For 1 dose, Radiology Medication Routing (Non-IR) Given 04/19/2024 8:30 AM EST 29.4 millicuries Hand Right documented in this encounter Advance Directives * [...] Power of Attor patricia? No Care Teams Schedule Manager Relationship Specialty Start Date End Date Araceli Mays MD [address] [facility] [place] [address] PCP - General 10/08/01 documented as of this encounter
--- OUTSIDE RECORDS SUMMARY | 2024-05-02 12:18 | External Medical Summary | Summary of Care ---
Author Name Unknown Organization [facility] Address [address] [place] [address] Phone [phone] Care Team Providers Care Back Gray Cloth Washer Name Role Phone Araceli Mays MD Primary Care Provider [phone] Reason for Visit * Precert (Within 10 [...] PHARM INTERV Nakia Love CRNP [address] [place] [address] Phone: tel: fax: Referral ID Status Reason Start Date Expiration Date V isits Requested Visits Authorized [id number] Authorized Precert 04/13/[id number] Encounter Details Date Type Department Care Team (Latest Contact Info) Description 04/18/2024 12:06 PM EST - 04/18/2024 11:59 PM EST Hospital Encounter Radiology, [facility] [address] [place], [place] [phone] Discharge Disposition: Home - Self Care Allergies Active Allergy Reactions Criticality Noted Date Comments Fremanezumab-Vfrm Other (Please comment) High 2020 Head pain x 3 days straight Ergotamine 07/29/2023 Tartrazine CAFERGOT,NAUSEA AND VOMITING Tizanidine Other (Please comment) 03/07/2024 Makes me see weird things Bupropion Hcl Other (Please comment) 04/01/2012 aggitated documented as of this encounter (statuses as of 04/19/2024) Medications Cholecalciferol (VITAMIN D3) 1.25 MG (39386 UT) Capsule One capsule once a week [...] rhinitis, unspecified seasonality, unspecified trigger Administer 1 [place] into nostril in the morning and 1 [place] before bedtime. 30 mL 12 12/09/19 Active [...] As needed. 90 Tablet 04/12/20 24 Active documented as of this encounter (statuses as of 04/19/2024) Active Problems Problem Noted Date Diagnosed Date [...] 08/08/2019 Chronic constipation 07/03/2019 No transfusions per zoroastrianism beliefs 11/29/2018 Overview (09/18/2020): Update of IMO [...] as of this encounter (statuses as of 04/19/2024) Resolved Problems Problem Noted Date Diagnosed Date [...] AGREEMENT 05/25/2015 Overview (01/27/2018): with Dr Rivera Bench Worker Binding Pain in toe of right foot 04/30/2015 [...] as of this encounter (statuses as of 04/19/2024) Immunizations Name Administration Dates Next Due COVID-19 mRNA, LNP-s, No Pre serve, 2-Dose Series (HEXIO) 03/14/2021,08/29/2020,08/09/2020 COVID-19, MRNA-LNP, PF, 30 M CG/0.3 mL, 12 YRS AND ABOVE, IM ([facility]) 04/21/2023 COVID-19, mRNA, LNP-s, PF, B ooster, [...] No 03/22/2024 Does the household have a re gular source of income? 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 Answer Date of Assessment Author No 11/27/2018 10:34 PM Lena Paulson RN * Are you blind or do you have serious difficulty seeing, even when wearing glasses? Answer Date of Assessment Author No 11/27/2018 10:34 PM Lena Paulson RN * Do you have serious difficulty walking or climbing stairs? (5 years old or older) Answer Date of Assessment Author Yes 11/27/2018 10:34 PM Lena Paulson RN * Do you have difficulty dressing or bathing? (5 years old or older) Answer Date of Assessment Author No 11/27/2018 10:34 PM Lena Paulson, RN * Because of a physical, mental, or emotional condition, do you have difficulty doing errands alone such as visiting a doctors office or shopping? (15 years old or older) Answer Date of Assessment Author Yes 11/27/2018 10:34 PM Lena Paulson P, RN documented as of this encounter Mental Status * Because of a physical, mental, or emotional condition, do you have serious difficulty concentrating, remembering, or making decisions? (5 years old or older) Answer Entry Date Author No 11/27/2018 10:34 PM EDT Lena Betancur RN documented in this encounter Plan of Treatment Upcoming Encounters Date Type Department Care Team (Late st Contact Info) Description 06/08/2024 2:00 PM EST Telemedicine Cardiology, [place] 400 [place] [address] [facility] Cardiology [address] [place] [address] 07/07/2024 12:00 PM EST Office Visit G[facility]enterology, [facility] [address] [facility] [place] [address] Alexandra Jones PA-C [address] [place] [address] 08/09/2024 10:00 AM EDT [address]medicine [address]acy, [address] [address] [facility] [address] [facility] [address] 10/05/2024 12:50 PM EDT Office Visit [facility] [place] 27 [facility] [place] [address] Yashira Kidd MD 27 [facility] [place] [address] 03/16/2025 3:00 PM EDT Office Visit Cardiology, [place] [address] [facility] [address] Lissette Mullen MD 400 [facility] [place] [address] 06/09/2025 10:00 AM EST Office Visit [facility] [place] [address] [place] [address] Araceli Mays MD [address] [place] [address] Scheduled Procedures Name Priority Associated Diagnoses Date/Ti [...] this encounter Medical Devices Implanted Type Area Inspector Aluminum Boat Device Identifier Shelf Expiration Date Model / Serial / Lot Clip Quick 2.8mm 230cm - [id number] Implanted:Qty : 2 on 02/27/2022 by Mirna Hernandez MD at OR [facility] N/A: Esophagus [employer] 06/04/2024 [id number]-[id number] / / [id number] Description:[email or web address] documented as of this encounter Procedures Procedure Name Priority Date/Time Associated Diagnosis Comments NM MYOCARDIAL PERFUSION IMAGING SPECT MULTIPLE STUDIES WITH PHARMACOLOGIC INTERVENTION Routine 04/19/2024 10:28 AM EST Pre-operative cardiovascular examination DAVIS (dyspnea on exertion) HTN, goal below 130/80 Hyperlipidemia with target LDL less than 100 Type 2 diabetes mellitus with hemoglobin A1c goal of less than 7.0% (HCC) documented in this encounter Results * NM MYOCARD PERF IMG SPECT MULT STUDIES WITH PHARM INTERV (04/19/2024 10:28 AM EST) Narrative Scheduling, Silent - 04/19/2024 10:28 AM EST Results can be viewed in the patient's cardiology tab of Chart Review for this date of service. Nakia [facility]AV[facility] NUCLEAR MED Xena villalpando Result documented in this encounter Visit Diagnoses Diagnosis Pre-operative cardiovascular examination DAVIS (dyspnea on exertion) Other dyspnea and respiratory abnormality HTN, goal below 130/80 Unspecified essential hypertension Hyperlipidemia with target LDL less than 100 Other and unspecified hyperlipidemia Type 2 diabetes mellitus with hemoglobin A1c goal of less than 7.0% (HCC) SOB (shortness of breath)- Primary Shortness of breath documented in this encounter Administered Medications Inactive Administered Medications - up to 3 most recent administrations Medication Order MAR Action Action Date Dose Rate Site Technetium Tc 99m Sestamibi (Sestamibi) inj 28 millicurie 28 millicurie, Intravenous, ONCE, On 04/18/24 at 1231, For 1 dose, Radiology Medication Routing (Non-IR) Given 04/18/2024 12:20 PM EST 28 millicuries Antecubital Left documented in this encounter Advance Directives * [...] Power of Attor patricia? No Care Teams Back Gray Cloth Washer Relationship Specialty Start Date End Date Araceli Mays MD 27 [facility] [place] [address] PCP - General 10/08/01 documented as of this encounter
--- OUTSIDE RECORDS SUMMARY | 2024-05-02 12:18 | External Medical Summary | Summary of Care ---
Author Name Unknown Organization [facility] Address [address] [place] [address] Phone [phone] Care Team Providers Care Associate Director Qa Name Role Phone Araceli Mays MD Primary Care Provider [phone] Encounter Details Date Type Department Care Team (Late st Contact Info) Description 04/18/2024 Orders Only Unspecified Department Nakia Love CRNP [address] [place] [address] Allergies Active Allergy Reactions Criticality Noted Date Comments Fremanezumab-Vfrm Other (Please comment) High 2020 Head pain x 3 days straight Ergotamine 07/29/2023 Tartrazine CAFERGOT,NAUSEA AND VOMITING Tizanidine Other (Please comment) 03/07/2024 Makes me see weird things Bupropion Hcl Other (Please comment) 04/01/2012 aggitated documented as of this encounter (statuses as of 04/19/2024) Medications Cholecalciferol (VITAMIN D3) 1.25 MG (38890 UT) Capsule One capsule once a week x 3 months 4 Cap 3 05/26/19 20 Active aspirin enteric coated 81 MG TBEC [...] SUGAR TWICE A DAY. E11.9 200 Strip 06/13/19 Active TRUEplus Lancets 33G USE TO [...] rhinitis, unspecified seasonality, unspecified trigger Administer 1 Zamora into nostril in the morning and 1 Zamora before bedtime. 30 mL 12/09/19 Active Clobetasol Propionate 0.05 % External [...] Active Emgality 120 MG/ML Subcutaneous Solution Auto-injector (Galcanezumab-gn ) Inject 1 mL under the skin [...] 08/08/2019 Chronic constipation 07/03/2019 No transfusions per tenriism beliefs 11/29/2018 Overview (09/18/2020): Update of IMO [...] AGREEMENT 05/25/2015 Overview (01/27/2018): with Dr Rivera Heater Helper Pain in toe of right foot 04/30/2015 [...] mRNA, LNP-s, No Pre serve, 2-Dose Series ([employer]) 03/14/2021,08/29/2020,08/09/2020 COVID-19, MRNA-LNP, PF, 30 M CG/0.3 mL, 12 YRS AND ABOVE, IM ([facility]) 04/21/2023 COVID-19, mRNA, LNP-s, PF, B ooster, [...] 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 file [...] of Assessment Author Yes 11/27/2018 10:34 PM ISIDROT Lena Betancur RN documented as of this [...] Description 06/08/2024 2:00 PM EST Telemedicine Cardiology, [place] [address] [place] [address] [facility] [address] [place] [address] 07/07/2024 12:00 PM EST Office Visit Gastroenterology, [facility] [address] [place] [phone] Alexandra Jones PA-C [address] [place] [address] 08/09/2024 10:00 AM EDT Telemedicine Pharmacy, [place] [address] [facility] [place] [address] [facility] [address] [facility] [place] [address] 10/05/2024 12:50 PM EDT Office Visit [facility] [address] [place] [address] Yashira Kidd MD [address] [facility] [place] [address] 03/16/2025 3:00 PM EDT [facility] [address] [place] [address] Lissette Mullen MD [address] [place] [address] 06/09/2025 10:00 AM EST Office Visit [facility] [address] [place] [address] Araceli Mays MD [address] [place] [address] Scheduled Procedures Name Priority Associated Diagnoses Date/Ti [...] this encounter Medical Devices Implanted Type Area Wheelman Device Identifier Shelf Expiration Date Model / Serial / Lot Clip Quick 2.8mm 230cm - [id number] Implanted:Qty : 2 on 02/27/2022 by Mirna Hernandez MD at OR [facility] N/A: Esophagus [employer] 06/04/2024 HX-202UR.A / / [id number] Description:[email or web address] documented as of this encounter Procedures Procedure Name Priority Date/Time Associated Diagnosis Comments NM MYOCARDIAL PERFUSION IMAGING SPECT MULTIPLE STUDIES WITH PHARMACOLOGIC INTERVENTION Routine 04/18/2024 1:05 PM EST documented in this encounter Results * NM MYOCARDIAL PERFUSION IMAGING SPECT MULTIPLE STUDIES WITH PHARMACOLOGIC INTERVENTION (04/18/2024 1:05 PM EST) LEFT VENTRICULAR EJECTION FRACTION 72 % [facility] 04/18/2024 1:05 PM EST Nakia SARAVIA [facility] NUCLEAR MED Xena l Result [facility] documented in this encounter Advance Directives * [...] Power of Attor patricia? No Care Teams Associate Director Qa Relationship Specialty Start Date End Date Araceli Mays MD [address] [place] [address] PCP - General 10/08/01 documented as of this encounter
--- OUTSIDE RECORDS SUMMARY | 2024-05-02 12:18 | External Medical Summary | Summary of Care ---
Author Name Unknown Organization [facility] Address [address] [place] [address] Phone [phone] Care Team Providers Care Senior Interior Designer Name Role Phone Araceli Mays MD Primary Care Provider [phone] Encounter Details Date Type Department Care Team (Late st Contact Info) Description 04/19/2024 Telephone [facility]iology [facility] [place] [address] [place] [address] Nakia Love CRNP [address] [place] [address] Allergies Active Allergy Reactions Criticality Noted Date Comments Fremanezumab-Vfrm Other (Please comment) High 2020 Head pain x 3 days straight Ergotamine 07/29/2023 Tartrazine CAFERGOT,NAUSEA AND VOMITING Tizanidine Other (Please comment) 03/07/2024 Makes me see weird things Bupropion Hcl Other (Please comment) 04/01/2012 aggitated documented as of this encounter (statuses as of 04/19/2024) Medications Cholecalciferol (VITAMIN D3) 1.25 MG (56653 UT) Capsule One capsule once a week [...] rhinitis, unspecified seasonality, unspecified trigger Administer 1 [place] into nostril in the morning and 1 [place] before bedtime. 30 mL 12 12/09/19 Active [...] Active Emgality 120 MG/ML Subcutaneous Solution Auto-injector ([facility]anez[facility] ) Inject 1 mL under the skin [...] 08/08/2019 Chronic constipation 07/03/2019 No transfusions per adventist beliefs 11/29/2018 Overview (09/18/2020): Update of IMO [...] AGREEMENT 05/25/2015 Overview (01/27/2018): with Dr Rivera Freight Coordinator Pain in toe of right foot 04/30/2015 [...] mRNA, LNP-s, No Pre serve, 2-Dose Series ([place]) 03/14/2021,08/29/2020,08/09/2020 COVID-19, MRNA-LNP, PF, 30 M CG/0.3 mL, 12 YRS AND ABOVE, IM ([facility]) 04/21/2023 COVID-19, mRNA, LNP-s, PF, B ooster, [...] 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 The stress test was negative for ischemia. She may proceed with planned orthopedic surgery. Continue beta tito up to and including the morning of surgery; it should be continued post-operatively as well, beginning ELLY after surgery, intravenously if the patient is unable to take medications orally. Aspirin should be discontinued for shortest possible time which the surgeon feels is needed for surgical safety and resumed ELLY after surgery, as soon as the surgeon feels it is safe in terms of post-operative bleeding. MANJIT Alexandra Department of Cardiology [place], [place] Lexiscan nuclear cardiac stress test negative for ischemia. The LV ejection fraction is calculated at 72%. Gated SPECT images reveals normal myocardial thickening and wall motion. Decreased counts noted in the apex that improved with stress suggestive of attenuation artifact. documented in this encounter Plan of Treatment Upcoming Encounters Date Type Department Care Team (Late st Contact Info) Description 06/08/2024 2:00 PM EST [address]medicine [address] [address] [facility] [address] [facility] [address] 07/07/2024 12:00 PM EST Office Visit Gastroenterology, [facility] [place] [address] [facility] [phone] Alexandra Jones PA-C 310 [facility] [place] [address] 08/09/2024 10:00 AM EDT Telemedicine Pharmacy[address] [place] [address] [place] [facility] [address] [place] [address] 10/05/2024 12:50 PM EDT [facility] [address] [place] [address] Yashira Kidd MD 27 [facility] [place] [address] 03/16/2025 3:00 PM EDT Office Visit Cardiology, [place] [address] [place] [address] Lissette Mullen MD 400 [place] [address] 06/09/2025 10:00 AM EST Office Visit [facility] [address] [place] [address] Araceli Mays MD [address] [facility] [place] [address] Scheduled Procedures Name Priority Associated Diagnoses Date/Ti [...] 05/08/2021, Additional history exists GFR 04/12/2025 04/12/2024, 040 06/2023, 03/13/2023, Additional history exists DTap/Tdap Vaccines [...] this encounter Medical Devices Implanted Type Area Animal Behaviorist Device Identifier Shelf Expiration Date Model / Serial / Lot Clip Quick 2.8mm 230cm - [id number] Implanted:Qty : 2 on 02/27/2022 by Mirna Hernandez MD at OR [facility] N/A: Esophagus [employer] 06/04/2024 HX-202UR.A / / [id number] Description:[email or web address] documented as of this encounter Advance Directives * Full Code [...] Power of Attor patricia? No Care Teams Senior Interior Designer Relationship Specialty Start Date End Date Araceli Mays MD [address] [facility] [place] [address] PCP - General 10/08/01 documented as of this encounter
--- OUTSIDE RECORDS SUMMARY | 2024-05-02 12:19 | External Medical Summary | Summary of Care ---
Author Name Unknown Organization [facility] Address [address] [place] [place] [address] Phone [phone] Care Team Providers Care Wind Farm Engineer Name Role Phone Araceli Gómez MD Primary Care Provider [phone] Reason for Visit * Reason Comments eRx-Medication Refill Encounter Details Date Type Department Care Team (Late st Contact Info) Description 04/12/[address] [facility] [address] [place] [address] Araceli Gómez MD [address] [place] [address] Sacroiliitis (HCC) Allergies Active Allergy Reactions Criticality Noted Date Comments Fremanezumab-Vfrm Other (Please comment) High 2020 Head pain x 3 days straight Ergotamine 07/29/2023 Tartrazine CAFERGOT,NAUSEA AND VOMITING Tizanidine Other (Please comment) 03/07/2024 Makes me see weird things Bupropion Hcl Other (Please comment) 04/01/2012 aggitated documented as of this encounter (statuses as of 04/12/2024) Medications Cholecalciferol (VITAMIN D3) 1.25 MG (41491 UT) Capsule One capsule once a week x 3 months 4 Cap 3 020 Active aspirin enteric coated 81 MG TBEC Take 1 Tab by mouth daily. 30 Tab 5 020 Active Blood Glucose Monitoring Suppl ([employer] BLOOD GLUCOSE METER) w/Device KIT Please use to test blood sugar once daily or as directed. ICD E11.9 1 Kit Active CPAP every night at bedtime. Auto 12-20 cm Active True Metrix Blood Glucose Test In Vitro Strip (Glucose Blood) USE DIRECTED TO CHECK BLOOD SUGAR TWICE A DAY. E11.9 200 Strip 5 023 Active TRUEplus Lancets 33G USE TO CHECK BLOOD SUGAR TWICE DAILY OR DIRECTED. E11.9 150 Each 023 Active Lasmiditan Succinate 100 MG Oral Tablet (Reyvow)Indicatio ns:Mixed headache TAKE 1 TABLET BY MOUTH AT ONSET OF MIGRAINE. NO MORE THAN 1 DOSE IN 24 HOURS 8 Tablet 5 023 Active Prolia 60 MG/ML Subcutaneous Solution Prefilled Syringe (Denosumab) Inject 60 mg under the skin once. Active Vitamin B-12 1000 MCG Oral Tablet (Cyanocobalamin) Take 1 Tablet by mouth in the morning. Active Azelastine HCl 0.1 % Nasal Solution (Astelin)Indicati ons:Allergic rhinitis, unspecified seasonality, unspecified trigger Administer 1 [place] into nostril in the morning and 1 [place] before bedtime. 30 mL 12 023 Active Clobetasol Propionate 0.05 % External Gel (Temovate) Apply topically to affected area 2 times a day. Apply to behind each ear as needed Active Sulfamethoxazole- Trimethoprim 800-160 MG Oral Tablet (Bactrim DS) Take 1 Tablet by mouth in the morning and 1 Tablet before bedtime. Use as directed.. 30 Tablet 6 023 Active Additional Information Patient not taking.Reported on 04/04/2024 Estradiol 0.1 MG/GM Vaginal Cream (Estrace) Administer 1 g into the vagina once a day on Thursday, Thursday, and Thursday only. 13 g 10 023 Active Additional Information Patient not taking.Reported on 04/04/2024 ZyrTEC Allergy 10 MG Oral Capsule (Cetirizine HCl) Take 1 Capsule by mouth in the morning. Active Lubiprostone 8 MCG Oral Capsule (Amitiza)Indicati ons:Chronic constipation TAKE TWO CAPSULES BY MOUTH TWICE DAILY with morning and evening meals 360 Capsule 3 023 Active Additional Information Patient not taking.Reported on 04/04/2024 Omeprazole 20 MG Oral Capsule Delayed Release [...] rinsing. 120 mL 5 024 Active Topiramate 25 MG Oral Tablet (topAMAX) Use to wean of AM dose of topirimate 100 mg as follows. 75 mg in AM for 1 week, then 50 mg in AM for 1 week, then 25 mg in AM for 1 week, then stop AM dose of topirimate, leaving only 100 mg at night 42 Tablet 024 Active Additional Information Patient not taking.Reported on 04/04/2024 Topiramate 100 MG Oral Tablet (topAMAX) Take [...] the skin every month. 1 mL 3 4 11:23 AM EST 024 Active Celecoxib 200 [...] by mouth in the morning. 90 Tablet 024 Active Valsartan 40 MG Oral Tablet (Diovan)Indicatio ns:HTN, goal below 130/80 Take 1 Tablet by mouth in the morning. 90 Tablet 1 024 Active Zoster Vac Recomb Adjuvanted 50 MCG/0.5ML Intramuscular Suspension Reconstituted (Shingrix)Indicat ions:Need for vaccination for zoster Inject 0.5 mL into a large muscle now and repeat dose in 60 to 180 days 1 Each 1 Active Pregabalin 150 MG Oral Capsule (Lyrica)Indicatio ns:Spinal stenosis of lumbar region without neurogenic claudication,Sacr oiliitis (HCC) Take 1 Capsule by mouth in the morning and 1 Capsule at noon and 1 Capsule before bedtime. 90 Capsule 2 Active Baclofen 10 MG Oral Tablet (Lioresal)Indicat ions:Sacroiliitis (HCC) Take 1 Tablet by mouth in the morning and 1 Tablet at noon and 1 Tablet before bedtime. As needed. 90 Tablet Active Baclofen 10 MG Oral Tablet (Lioresal)Indicat ions:Sacroiliitis (HCC) Take 1 Tablet by mouth in the morning and 1 Tablet at noon and 1 Tablet before bedtime. As needed. 90 Tablet 024 2023 Discontinued documented as of this encounter (statuses as of 04/12/2024) Active Problems Problem Noted Date Diagnosed Date [...] 08/08/2019 Chronic constipation 07/03/2019 No transfusions per caodaism beliefs 11/29/2018 Overview (09/18/2020): Update of IMO [...] as of this encounter (statuses as of 04/12/2024) Resolved Problems Problem Noted Date Diagnosed Date [...] AGREEMENT 05/25/2015 Overview (01/27/2018): with Dr Rivera Project Facilitator Pain in toe of right foot 04/30/2015 [...] as of this encounter (statuses as of 04/12/2024) Immunizations Name Administration Dates Next Due COVID-19 mRNA, LNP-s, No Pre serve, 2-Dose Series ([employer]) 03/14/2021,08/29/2020,08/09/2020 COVID-19, MRNA-LNP, PF, 30 M CG/0.3 mL, 12 YRS AND ABOVE, IM (PFIZER-Comirnaty) 04/21/2023 COVID-19, mRNA, LNP-s, PF, B ooster, [...] 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 As needed. Authorizing Provider: ARACELI GÓMEZ * Telephone Encounter - Amna Kuhn [facility] - 04/12/2024 1:15 PM ESTPending Prescriptions: Disp Refills Baclofen 10 MG Oral Tablet [Pharmacy Med N*90 Tab*0 Sig: Take 1 Tablet by mouth in the morning and 1 Tablet at noon and 1 Tablet before bedtime. As needed. * Telephone Encounter - Amna Kuhn [facility] - 04/12/2024 1:15 PM EST Did you pend patient's preferred pharmacy and medication before forwarding?yes Pharmacy: [id number] [place] Pending Prescriptions: Disp Refills Baclofen 10 MG Oral Tablet (Lioresal) [Ph*90 Tab*0 Sig: Take 1 Tablet by mouth in the morning and 1 Tablet at noon and 1 Tablet before bedtime. As needed. Last Visit: 04/04/2024 (in office), Visit date not found (telemedicine) Next Visit: 10/05/2024 If no future appointments scheduled, and last appointment is greater than a year ago, please schedule patient for a follow-up appointment Last date the medication was ordered: 03/14/2024 Is this request for a controlled substance?No Urine Drug Screen: Results for orders placed or performed in visit on 05/04/23 PAIN MANAGEMENT DRUG PANEL, URINE W/ INTERPRETATION Result Value Compliance Interpretation Based on the medication information provided: The presence of codeine is INCONSISTENT with the information provided. The absence of hydrocodone, dihydrocodeine and hydromorphone could be due to low-dose and/or intermittent hydrocodone use. Amphetamines Screen, U Negative Benzodiazepines Screen, U Negative Cannabinoids Screen, U Negative Cocaine Metabolite Screen, U Negative Fentanyl Screen, U Negative Hydrocodone Screen, U Refer to confirmation results (A) Methadone Metabolite Screen, U Negative Morphine/Codeine Screen, U Negative Oxycodone Screen, U Negative Valid Interpretation Normal Creatinine, U 121 Narrative Cutoff Concentrations: Drug Level Amphetamines 500 ng/mL Benzodiazepines 100 ng/mL Cannabinoids 50 ng/mL Cocaine Metabolite 150 ng/mL Fentanyl 1 ng/mL Hydrocodone / Hydromorphone 300 ng/mL Methadone Metabolite 100 ng/mL Morphine / Codeine 300 ng/mL Oxycodone / Oxymorphone 100 ng/mL Screening results are presumptive and can only be used for medical purposes. Confirmatory testing is available upon request. *Note: Due to a large number of results and/or encounters for the requested time period, some results have not been displayed. A complete set of results can be found in Results Review. Patient Phone Numbers Labs: Lab Results Component Value Date/Time CREAT 0.9 08/25/2023 07:39 AM CREAT 0.8 05/05/2022 12:00 AM CREAT 1.0 05/04/2020 08:18 AM CREAT 0.6 (L) 08/10/1996 10:45 AM POTASSIUM 4.6 08/25/2023 07:39 AM POTASSIUM 4.4 05/05/2022 12:00 AM POTASSIUM 4.8 05/04/2020 08:18 AM POTASSIUM 4.7 08/10/1996 10:45 AM TSH 1.71 07/20/2023 12:36 PM TSH 2.91 05/04/2020 08:18 AM LDL 48 03/23/2024 08:09 AM LDL 05/04/2020 08:18 AM Uninterpretable, recommend direct LDL cholesterol testing. LDL 51 05/04/2020 08:18 AM LDL 135. (H) 08/10/1996 10:45 AM ALT 16 08/25/2023 07:39 AM ALT 23 05/04/2020 08:18 AM ALT 18 08/10/1996 10:45 AM HGBA1C 5.9 (H) 03/23/2024 08:09 AM HGBA1C 6.6 (H) 05/04/2020 08:18 AM documented in this encounter Plan of Treatment Upcoming Encounters Date Type Department Care Team (Late st Contact Info) Description 04/13/2024 9:00 AM EST Office Visit Cardiology, [place] [address] [place] [address] Nakia Love CRNP [address] [facility] [place] [address] 06/08/2024 2:00 PM EST Telemedicine Cardiology, [place] [address] [place] [address] [facility] Cardiology [address] [place] [address] 07/07/2024 12:00 PM EST Office Visit Gastroenterology, [facility] [address] [facility] [place] [phone] Alexandra Jones PA-C 310 [facility] [place] [address] 08/09/2024 10:00 AM EDT Telemedicine Pharmacy, [address] [place] [address] [facility] [address] [facility] [place] [address] 10/05/2024 12:50 PM EDT Office Visit [address] [place] [address] Yashira Kidd MD [address] [facility] [place] [address] 06/09/2025 10:00 AM EST [facility] [address] [facility] [place] [address] Araceli Gómez MD 27 [facility] [place] [address] Scheduled Procedures Name Priority Associated Diagnoses Date/Ti [...] 08/24/2024 024, 07/20/2023, 08/25/2022, Additional history exists GFR 08/24/2024 08/25/2023, 02/23, 12/16/2022, Additional history exists HbA1c 09/21/2024 03/23/2024, 08/0 11/2023, 08/25/2023, Additional history exists Colonoscopy 02/27/2025 02/27/2022, 10/0 10/2021, 11/01/2018, Additional history exists Colorectal Cancer Screening 02/27/2025 Depression Monitoring 04/04/2025 04/04/2024 Diabetic Foot Exam 04/04/2025 04/04/2024, 1 , 05/08/2021, Additional history exists DTap/Tdap Vaccines (3 - [...] this encounter Medical Devices Implanted Type Area Catering And Events Manager Device Identifier Shelf Expiration Date Model / Serial / Lot Clip Quick 2.8mm 230cm - [id number] Implanted:Qty : 2 on 02/27/2022 by Mirna Hernandez MD at OR [facility] N/A: Esophagus [employer] 06/04/2024 HX-202UR.A / / [id number] Description:[email or web address] documented as of this encounter Visit Diagnoses Diagnosis Sacroiliitis (HCC) Sacroiliitis, not elsewhere classified documented in this encounter Advance Directives * [...] Power of Attor patricia? No Care Teams Wind Farm Engineer Relationship Specialty Start Date End Date Araceli Gómez MD [address] [place] [address] PCP - General 10/08/01 documented as of this encounter
--- OUTSIDE RECORDS SUMMARY | 2024-05-02 12:19 | External Medical Summary | Summary of Care ---
Author Name Unknown Organization [facility] Address [address] [place] [address] Phone [phone] Care Team Providers Care Buckle Sewer Machine Name Role Phone Araceli Mays MD Primary Care Provider [phone] Encounter Details Date Type Department Care Team (Late st Contact Info) Description 04/13/2024 Orders Only Family Practice, [place] [address] [facility] [address] [place] [id number] Araceli Mays MD [address] [facility] [place] [address] Allergies Active Allergy Reactions Criticality Noted Date Comments Fremanezumab-Vfrm Other (Please comment) High 2020 Head pain x 3 days straight Ergotamine 07/29/2023 Tartrazine CAFERGOT,NAUSEA AND VOMITING Tizanidine Other (Please comment) 03/07/2024 Makes me see weird things Bupropion Hcl Other (Please comment) 04/01/2012 aggitated documented as of this encounter (statuses as of 04/13/2024) Medications Cholecalciferol (VITAMIN D3) 1.25 MG (18357 UT) Capsule One capsule once a week x 3 months 4 Cap 3 01/02/20 20 Active aspirin enteric coated 81 MG [...] rhinitis, unspecified seasonality, unspecified trigger Administer 1 [place] into nostril in the morning and 1 [place] before bedtime. 30 mL 12 12/09/19 Active [...] THE MORNING AND AT BEDTIME 180 Capsule 06/08/19 24 Active Metoprolol Succinate ER 50 [...] Active Emgality 120 MG/ML Subcutaneous Solution Auto-injector (Galcanezumab-[facility] ) Inject 1 mL under the [...] as of this encounter (statuses as of 04/13/2024) Active Problems Problem Noted Date Diagnosed Date [...] 08/08/2019 Chronic constipation 07/03/2019 No transfusions per christian beliefs 11/29/2018 Overview (09/18/2020): Update of IMO [...] as of this encounter (statuses as of 04/13/2024) Resolved Problems Problem Noted Date Diagnosed Date [...] AGREEMENT 05/25/2015 Overview (01/27/2018): with Dr Rivera Furniture Sprayer Pain in toe of right foot 04/30/2015 [...] as of this encounter (statuses as of 04/13/2024) Immunizations Name Administration Dates Next Due COVID-19 mRNA, LNP-s, No Pre serve, 2-Dose Series ([employer]) 03/14/2021,08/29/2020,08/09/2020 COVID-19, MRNA-LNP, PF, 30 M CG/0.3 mL, 12 YRS AND ABOVE, IM ([facility] 04/21/2023 COVID-19, mRNA, LNP-s, PF, B [...] 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 Not on file Not [...] Lena Paulson RN documented in this encounter Plan of Treatment Upcoming Encounters Date Type Department Care Team (Late st Contact Info) Description 04/18/2024 12:30 PM EST Appointment Radiology, [address] [place] [address] 04/19/2024 8:30 AM EST Appointment Radiology, [facility] [address] 06/08/2024 2:00 PM EST Telemedicine Cardiology, [place] [facility] [address] [facility] Card[facility] 400 [place] [address] 07/07/2024 12:00 PM EST Office Visit Gastroenterology, [facility] [address] [facility] [phone] Alexandra Jones PA-C [address] [place] [address] [place] [address] 08/09/2024 10:00 AM EDT [facility] [address] [place] [address] [facility] [place] [address] 10/05/2024 12:50 PM EDT Office Visit [facility] [address] [place] [address] Yash[facility] MD [facility] [place] [address] 03/16/2025 3:00 PM EDT Office Visit [facility], [place] [facility] [place] [address] Lissette Mullen MD 400 [place] [address] 06/09/2025 10:00 AM EST Office Visit [facility] [address] [facility] [place] [address] Araceli Mays MD [address] [facility] [place] [address] Pending Results Name Type Priority Associated Diagnoses Date /Time XR CHEST 2 VIEWS Medical Imaging Routine CHEMISTRY-OUTSIDE Lab Routine 024 Scheduled Procedures Name Priority Associated Diagnoses Date/Ti [...] this encounter Medical Devices Implanted Type Area Mig Welder Device Identifier Shelf Expiration Date Model / Serial / Lot Clip Quick 2.8mm 230cm - [id number] Implanted:Qty : 2 on 02/27/2022 by Mirna Hernandez MD at OR [facility] N/A: Esophagus [employer] 06/04/2024 [id number]-202UR.[id number] / / [id number] Description:[email or web address] documented as of this encounter [...] Power of Attor patricia? No Care Teams Buckle Sewer Machine Relationship Specialty Start Date End Date Araceli Mays MD [address] [facility] [place] [address] PCP - General 10/08/01 documented as of this encounter
--- OUTSIDE RECORDS SUMMARY | 2024-05-02 12:19 | External Medical Summary | Summary of Care ---
Author Name Unknown Organization [facility] Address [address] [place] [address] Phone [phone] Care Team Providers Care Belt Polisher Name Role Phone Araceli Mays MD Primary Care Provider [phone] Encounter Details Date Type Department Care Team (Late st Contact Info) Description 04/12/2024 Result Scan Unspecified Department <No scans attached> Allergies Active Allergy Reactions Criticality Noted Date Comments Fremanezumab-Vfrm Other (Please comment) High 2020 Head pain x 3 days straight Ergotamine 07/29/2023 Tartrazine CAFERGOT,NAUSEA AND VOMITING Tizanidine Other (Please comment) 03/07/2024 Makes me see weird things Bupropion Hcl Other (Please comment) 04/01/2012 aggitated documented as of this encounter (statuses as of 04/14/2024) Medications Cholecalciferol (VITAMIN D3) 1.25 MG (33574 UT) Capsule One capsule once a week x 3 months 4 Cap 3 05/26/19 20 Active aspirin enteric coated 81 MG TBEC Take 1 Tab by mouth daily. 30 Tab 5 08/08/19 20 Active Blood Glucose Monitoring Suppl ([employer] BLOOD GLUCOSE METER) w/Device KIT Please use to test blood sugar once daily or as directed. ICD E11.9 1 Kit 07/21/20 20 Active CPAP every night at bedtime. Auto 12-20 cm Active True Metrix Blood Glucose Test In Vitro Strip (Glucose Blood) USE DIRECTED TO CHECK BLOOD SUGAR TWICE A DAY. E11.9 200 Strip 5 06/13/19 Active TRUEplus Lancets 33G USE TO CHECK BLOOD SUGAR TWICE DAILY OR DIRECTED. E11.9 150 Each 11 06/13/19 Active Lasmiditan Succinate 100 MG Oral Tablet (Reyvow)Indication s:Mixed headache TAKE 1 TABLET BY MOUTH AT ONSET OF MIGRAINE. NO MORE THAN 1 DOSE IN 24 HOURS 8 Tablet 5 09/20/19 Active Azelastine HCl 0.1 % Nasal Solution (Astelin)Indicatio ns:Allergic rhinitis, unspecified seasonality, unspecified trigger Administer 1 [place] into nostril in the morning and 1 [place] before bedtime. 30 mL 12 12/09/19 Active [...] by mouth in the morning. 90 Tablet 07/15/19 24 Active Acetaminophen 500 MG Oral [...] as of this encounter (statuses as of 04/14/2024) Active Problems Problem Noted Date Diagnosed Date [...] 08/08/2019 Chronic constipation 07/03/2019 No transfusions per latter-day beliefs 11/29/2018 Overview (09/18/2020): Update of IMO [...] as of this encounter (statuses as of 04/14/2024) Resolved Problems Problem Noted Date Diagnosed Date [...] AGREEMENT 05/25/2015 Overview (01/27/2018): with Dr Rivera Buckle Sewer Pain in toe of right foot 04/30/2015 [...] as of this encounter (statuses as of 04/14/2024) Immunizations Name Administration Dates Next Due COVID-19 mRNA, LNP-s, No Pre serve, 2-Dose Series ([employer]) 03/14/2021,08/29/2020,08/09/2020 COVID-19, MRNA-LNP, PF, 30 M CG/0.3 mL, 12 YRS AND ABOVE, IM (P[employer]ir[employer]) 04/21/2023 COVID-19, mRNA, LNP-s, PF, B ooster, [...] 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 on file [...] Description 04/18/2024 12:30 PM EST Appointment [address], [address] [place] [address] 04/19/2024 8:30 AM EST Appointment Radiology, [address] [place] [address] 06/08/2024 2:00 PM EST Telemedicine Cardiology, [address] [place] [address] [facility] 400 [place] [address] 07/07/2024 12:00 PM EST Office Visit Gastroenterology, [facility] [address] [facility] [place] [address] Alexandra Jones PA-C 310 [place] [address] 08/09/2024 10:00 AM EDT Telemedicine Pharmacy, [address] [place] [address] [facility] 27 [facility] [place] [address] 10/05/2024 12:50 PM EDT Office Visit [address] [place] [address] Yashira Kidd MD 27 [facility] [place] [address] 03/16/2025 3:00 PM EDT Office Visit [facility] 400 [facility] [place] [address] Lissette Mullen MD 400 [place] [address] 06/09/2025 10:00 AM EST Office Visit [facility] 27 [facility] [place] [address] Araceli Mays MD 27 [facility] [place] [address] Scheduled Procedures Name Priority Associated Diagnoses Date/Ti me COLONOSCOPY FLEXIBLE PROXIMA L DIAGNOSTIC Recall History of colonic polyps Health Maintenance Due Date Last Done Comments Cologuard 1997 Sigmoidoscopy 1997 Fecal Occult Blood Test 03/27/2017 11/03/20 16, 03/26/2015, 03/22/2014, Additional history exists Zoster Vaccines (3 of 3) 04/30/2020 03/05/2020, 05/25 Adult Wellness Visit 05/20/2022 05/20/2021 Diabetic Eye Exam 09/27/2023 09/26/2022, , 09/26/2022, Additional history exists COVID-19 Vaccine ( season) 2024 04/21/2023, 09/16/2021, 03/14/2021, Additional history exists Mammogram 06/05/2024 06/05/2023, 04/25, 12/07/2020, Additional history exists Albumin/Creatinine Ratio 08/24/2024 024, 07/20/2023, 08/25/2022, Additional history exists GFR 08/24/2024 04/12/2024, 04/0 06/2023, 03/13/2023, Additional history exists HbA1c 09/21/2024 03/23/2024, 08/0 [...] this encounter Medical Devices Implanted Type Area Core Extruder Device Identifier Shelf Expiration Date Model / Serial / Lot Clip Quick 2.8mm 230cm - [id number] Implanted:Qty : 2 on 02/27/2022 by Mirna Hernandez MD at OR [facility] N/A: Esophagus [employer] 06/04/2024 [id number]-202UR.A / / [id number] Description:[email or web address] documented as of this encounter Procedures Procedure Name Priority Date/Time Associated Diagnosis Comments OUTSIDE LAB RESULTS 04/12/2024 OUTSIDE LAB RESULTS 04/12/2024 documented in this encounter Results * OUTSIDE LAB RESULTS (04/12/2024) 04/12/2024 us No Physician Data Unknown LABORATORY Final Result * OUTSIDE LAB RESULTS (04/12/2024) 04/12/2024 us No Physician Data Unknown LABORATORY Final Result documented in this encounter Advance Directives * [...] Power of Attor patricia? No Care Teams Belt Polisher Relationship Specialty Start Date End Date Araceli Mays MD [address] [facility] [address] [place] [address] PCP - General 10/08/01 documented as of this encounter
--- OUTSIDE RECORDS SUMMARY | 2024-05-02 12:19 | External Medical Summary | Summary of Care ---
Author Name Unknown Organization [facility] Address [address] [place] [address] Phone [phone] Care Team Providers Care Bank Courier Name Role Phone Araceli Mays MD Primary Care Provider [phone] Reason for Referral * Precert (Within 10 days (routine)) - [...] PHARM INTERV Nakia Love CRNP [address] [place] [address] Phone: tel: fax: Referral ID Status Reason Start Date Expiration Date V isits Requested Visits Authorized [id number] Authorized Precert 04/13/2024 999 999 Reason for Visit * Reason Comments NEW PATIENT Pre-op Clearance Encounter Details Date Type Department Care Team (Late st Contact Info) Description 04/13/2024 9:00 AM EST Office Visit Cardiology, [address] [place] [address] Nakia Love CRNP [address] [place] [address] Pre-operative cardiovascular examination*; DAVIS (dyspnea on exertion); HTN, goal below 130/80; Hyperlipidemia with target LDL less than 100; Type 2 diabetes mellitus with hemoglobin A1c goal of less than 7.0% ([facility]); ZACKARY on CPAP; Fibromyalgia; Irritable bowel syndrome with both constipation and diarrhea Allergies Active Allergy Reactions Criticality Noted Date Comments Fremanezumab-Vfrm Other (Please comment) High 2020 Head pain x 3 days straight Ergotamine 07/29/2023 Tartrazine CAFERGOT,NAUSEA AND VOMITING Tizanidine Other (Please comment) 03/07/2024 Makes me see weird things Bupropion Hcl Other (Please comment) 04/01/2012 aggitated documented as of this encounter (statuses as of 04/13/2024) Medications Cholecalciferol (VITAMIN D3) 1.25 MG (14641 UT) Capsule One capsule once a week x 3 months 4 Cap 3 05/26/19 20 Active aspirin enteric coated 81 MG TBEC Take 1 Tab by mouth daily. 30 Tab 5 08/08/19 20 Active Blood Glucose Monitoring Suppl ([employer] BLOOD GLUCOSE METER) w/Device KIT Please use to test blood sugar once daily or as directed. ICD E11.9 1 Kit 12/13/19 20 Active CPAP every night at bedtime. Auto 12-20 cm Active True Metrix Blood Glucose Test In Vitro Strip (Glucose Blood) USE DIRECTED TO CHECK BLOOD SUGAR TWICE A DAY. E11.9 200 Strip 06/13/19 23 Active TRUEplus Lancets 33G USE TO CHECK BLOOD SUGAR TWICE DAILY OR DIRECTED. E11.9 150 Each 06/13/19 23 Active Lasmiditan Succinate 100 MG Oral Tablet (Reyvow)Indication s:Mixed headache TAKE 1 TABLET BY MOUTH AT ONSET OF MIGRAINE. NO MORE THAN 1 DOSE IN 24 HOURS 8 Tablet 5 09/20/19 23 Active Azelastine HCl 0.1 % Nasal Solution (Astelin)Indicatio ns:Allergic rhinitis, unspecified seasonality, unspecified trigger Administer 1 Aurora into nostril in the morning and 1 Aurora before bedtime. 30 mL 12 12/09/19 23 Active Clobetasol Propionate 0.05 % External Gel (Temovate) Apply topically to affected area 2 times a day. Apply to behind each ear as needed Active Sulfamethoxazole-T rimethoprim 800-160 MG Oral Tablet (Bactrim DS) Take 1 Tablet by mouth in the morning and 1 Tablet before bedtime. Use as directed.. 30 Tablet 6 04/01/20 23 Active Additional Information Patient not taking.Reported on [...] 1 mL 3 4 11:23 AM EST 01/15/20 24 Active Celecoxib [...] As needed. 90 Tablet 04/12/20 24 Active Prolia 60 MG/ML Subcutaneous Solution Prefilled Syringe (Denosumab) Inject 60 mg under the skin once. 024 Discontin ued(Medic ation/Dos e Changed) Vitamin B-12 1000 MCG Oral Tablet (Cyanocobalamin) Take 1 Tablet by mouth in the morning. 024 Discontin ued(Medic ation/Dos e Changed) Estradiol 0.1 MG/GM Vaginal Cream (Estrace) Administer 1 g into the vagina once a day on Thursday, Thursday, and Thursday only. 13 g 10 04/03/20 23 024 Discontin ued(Medic ation/Dos e Changed) Lubiprostone 8 MCG Oral Capsule (Amitiza)Indicatio ns:Chronic constipation TAKE TWO CAPSULES BY MOUTH TWICE DAILY with morning and evening meals 360 Capsule 3 05/21/20 23 024 Discontin ued(Medic ation/Dos e Changed) Topiramate 25 MG Oral Tablet (topAMAX) Use to wean of AM dose of topirimate 100 mg as follows. 75 mg in AM for 1 week, then 50 mg in AM for 1 week, then 25 mg in AM for 1 week, then stop AM dose of topirimate, leaving only 100 mg at night 42 Tablet 11/04/19 24 024 Discontin ued(Medic ation/Dos e Changed) documented as of this encounter (statuses as [...] 08/08/2019 Chronic constipation 07/03/2019 No transfusions per taoist beliefs 11/29/2018 Overview (09/18/2020): Update of IMO [...] AGREEMENT 05/25/2015 Overview (01/27/2018): with Dr Rivera Principal Cyber Engineer Pain in toe of right foot 04/30/2015 [...] mRNA, LNP-s, No Pre serve, 2-Dose Series ([employer]) 03/14/2021,08/29/2020,08/09/2020 COVID-19, MRNA-LNP, PF, 30 M CG/0.3 mL, 12 YRS AND ABOVE, IM ([employer] 04/21/2023 COVID-19, mRNA, LNP-s, PF, B ooster, [...] 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 Not on file Not on file Not on file documented as of this encounter Last Filed Vital Signs Vital Sign Reading Time Taken Comments Blood Pressure 126/76 04/13/2024 8:53 AM EST Pulse 75 04/13/2024 8:53 AM EST Temperature - - Respiratory Rate - - Oxygen Saturation 96% 04/13/2024 8:53 AM EST Inhaled Oxygen Concentration - - Weight 117 kg (258 lb) 04/13/2024 8:53 AM EST Height 160 cm (5' 3") 04/13/2024 8:53 AM EST Body Mass Index 45.7 04/13/2024 8:53 AM EST documented in this encounter Functional Status * [...] of Assessment Author No 11/27/2018 10:34 PM EDLena Bennett RN * Because of a physical, mental, [...] this encounter Patient Instructions * Patient Instructions* aNkia Love CRNP - 04/13/2024 9:30 AM EST [facility] [phone] documented in this encounter Progress Notes * Nakia Love CRNP - 04/13/2024 9:00 AM EST Araceli Myas MD requested a consultation for this 73 year old year old female for evaluation of: -PRE-OPERATIVE CARDIAC EVALUATION Nuvia Mast is a 73 year old year old female witih no known CAD. She has a history of cardiomyopathy (2019) which has since resolved, hypertension, hyperlipidemia, chronic DAVIS, sinus tachycardia, ZACKARY on bipap, obesity, diverticulosis, IBS, fibromyalgia, chronic fatigue syndrome and diabetes. She is accompanied by her . She is scheduled for right SI joint fusion on 05/02/2024 at [facility] with Dr. Jiang under general anesthesia. EKG 04/04 showed NSR. She is quite limited by generalized pain and fatigue. She has had 2 prior back surgeries. There are no other options for this pain. She is hopeful that her upcoming surgery will be helpful. She has a full flight of stairs to get into the house. She cleans and mops once a week. She denies any chest pain or tightness. She does have dyspnea with exertion. She does not feel that he shortness of breath has change in any way in the past 6-12 months. She denies orthopnea or PND. No dizziness or palpations. She is questioning her metoprolol and is concerned that this could be contributing to her memory. Prior cardiac testing: ECHO 08/01/2019 The qualitative LV ejection fraction is 40-44% (mildly reduced). The right ventricular systolic function is normal as assessed by TAPSE. Limited assessment for pericardial effusion due to poor acoustic windows subcostal views not obtained) however there appears to be a trivial circumferential pericardial effusion. No overt signs of tamponade noted. No significant valvular heart disea se noted.) NUCLEAR STRESS TEST 07/2020 (Lexiscan nuclear cardiac stress test negative for ischemia. Small area of fixed perfusion defect in the apical to basal inferior wall worse on the stress images suggestiveof attenuation artifact . The LV ejection fraction is calculated at >70%.) ZIOPATCH 04/2023 (1. Patient had a min HR of 45 bpm, max HR of 111 bpm, and avg HR of 73 bpm. Predominant underlying rhythm was Sinus Rhythm. 2.Isolated SVEs were rare (<1.0%), SVE Couplets were rare (<1.0%), and SVE Triplets were rare (<1.0%). Isolated VEs were rare (<1.0%), and no VE Couplets or VE Triplets were present.3. Triggered and reported events are associated with sinus rhythm and sinus tachycardia.No arrhythmias.) ECHO 06/2023 (The qualitative LV ejection fraction is 65-69% (normal). The left ventricular wall motion is normal. The left ventricular diastolic function is mildly abnormal (grade I). Trace mitral regurgitation Indeterminate IVC size and collapsability. Right atrial pressure estimated at 8 mmHg.) Current Outpatient Medications Medication Sig Dispense Refill Cholecalciferol (VITAMIN D3) 1.25 MG (98278 UT) Capsule One capsule once a week [...] DAILY OR DIRECTED. E11.9 150 Each 11 Azelastine HCl 0.1 % Nasal Solution (Astelin) Administer 1 Aurora into nostril in the morning and 1 Aurora before bedtime. 30 mL 12 Clobetasol Propionate 0.05 % External Gel (Temovate) Apply topically to affected area 2 times a day. Apply to behind each ear as needed ZyrTEC Allergy 10 MG Oral Capsule (Cetirizine HCl) Take 1 Capsule by mouth in the morning. Omeprazole 20 MG Oral Capsule Delayed Release [...] minutes before rinsing. 120 mL 5 Topiramate 100 MG Oral Tablet (topAMAX) Take [...] topically on the skin daily. 30Patch 2 Emgality 120 MG/ML Subcutaneous Solution Auto-injector (Galcanezumab-[facility]) Inject 1 mL under the skin [...] BY MOUTH EVERY MORNING 90 Tablet 3 Atorvastatin Calcium 40 MG Oral Tablet (Lipitor) Take 1 Tablet by mouth in the morning. 90 Tablet 0 Valsartan 40 MG Oral Tablet (Diovan) Take 1 Tablet by mouth in the morning. 90 Tablet 1 Pregabalin 150 MG Oral Capsule (Lyrica) Take 1 Capsule by mouth in the morning and 1 Capsule at noon and 1 Capsule before bedtime. 90 Capsule 2 Baclofen 10 MG Oral Tablet (Lioresal) Take 1 Tablet by mouth in the morning and 1 Tablet at noon and 1 Tablet before bedtime. As needed. 90 Tablet 0 Lasmiditan Succinate 100 MG Oral Tablet (Reyvow) TAKE 1 TABLET BY MOUTH AT ONSET OF MIGRAINE. NO MORE THAN 1 DOSE IN 24 HOURS 8 Tablet 5 Sulfamethoxazole-Trimethoprim 800-160 MG Oral Tablet (Bactrim DS) Take 1 Tablet by mouth in the morning and 1 Tablet before bedtime. Use as directed.. (Patient not taking: No sig reported) 30 Tablet 6 Zoster Vac Recomb Adjuvanted 50 MCG/0.5ML Intramuscular Suspension Reconstituted (Shingrix) Inject 0.5 mL into a large muscle now and repeat dose in 60 to 180 days 1 Each 1 No current facility-administered medications for this visit. Review of patient's allergies indicates: Allergen Reactions Ajovy [Fremanezumab-Vfrm] Other (Please comment) Head pain x 3 days straight Ergotamine Tartrazine CAFERGOT,NAUSEA AND VOMITING Tizanidine Other (Please comment) Makes me see weird things Wellbutrin [Bupropion Hcl] Other (Please comment) aggitated Past Medical History: Diagnosis Date Abnormal ECG July 2019 Adjustment disorder with mixed disturbance of emotions and conduct 08/06/2020 Asthma 1989 Calculus of kidney 1979 Cataract 2012 Claudia CHF (congestive heart failure) ([facility]) July 2019 Closed fracture of pelvis ([facility]) 08/12/2004 Dr. 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 Triglycerides always high Hyperlipidemia LDL goal < 100 10/25/1997 Hypertension 07/24/2019 IBS (irritable bowel syndrome) Incomplete bladder emptying 12/22/2006 Kidney disease 1980s Lactose intolerance 05/25/1999 Long QT interval 10/16/[address] Rivera Lumbago 05/1993 Lumbar stenosis 09/[address] Jiang Malaise and fatigue 10/1993 MEDICATION USE AGREEMENT [address] Rivera Principal Cyber Engineer Meralgia paresthetica 06/2001 seen by Mak-left thigh [...] performed by Nayla Otero MD at [facility] COLONOSCOPY 06/25/[address] Venegas-repeat 5yr COLONOSCOPY 09/07/2015 3 polyps-adenomas per Dr Villanueva; sigmoid tics COLONOSCOPY 11/01/[address] Villanueva-2 polyps COLONOSCOPY 02/27/2022 diverticulosis sigmoid colon/non-bleeding internal hemorrhoids/biopsies show adenomatous polyps/recall 3 years/Colonoscopy COLONOSCOPY, DIAGNOSTIC (RECTUM) 09/03/2004 Diverticulosis of sig. colon, Dr. Venegas COLONOSCOPY, DIAGNOSTIC (RECTUM) N/A 02/27/2022 COLONOSCOPY FLEXIBLE PROXIMAL DIAGNOSTIC performed by Mirna Hernandez MD at [facility] COLORECTAL CANCER SCREEN; COLON 08/1998 per Theo-one polyp and diverticulosis DEXA SCAN/BONE MINERAL AXIAL 02/11/2006 high risk of fx-on Forteo DEXA SCAN/BONE MINERAL AXIAL 03/11/2013 lumbar compression fx per Dr Rivera DEXA SCAN/BONE MINERAL AXIAL 07/16/[address] Rivera her review engineer-no change from the March 2019 study still high risk for fracture DILATION AND CURETTAGE (D&C) 1981 REMOVAL OF GROWTH IN UTERUS DOBUTAMINE STRESS ECHO 07/04/2013 neg ischemia ECHO (2-D COMPLETE) 09/30/2005 wn EGD, FLEXIBLE, DIAGNOSTIC 09/07/2015 multiple gastric polyps EGD, FLEXIBLE, DIAGNOSTIC N/A 02/27/2022 gastric polyps/biopsies show fundic gland polyps/EGD EGD, FLEXIBLE, DIAGNOSTIC N/A 02/27/2022 ESOPHAGOGASTRODUODENOSCOPY (EGD), FLEXIBLE, TRANSORAL, DIAGNOSTIC performed by Mirna Hernandez MD at [facility] EMG 1 EXTREMITY 07/05/2008 Left L3 radiculopathy per Dr Corado-going for injections per Dr Coburn FLUORO SMALL BOWEL SERIES 01/15/2007 opacified transverse colon on sm bowel films-Kay HEMILAMINECTOMY, CERVICAL/LUMBAR, EA. ADD'L 2003 Laminectomy for L4-5 radiculopathy INFORMATION 07/05/2004 R L4-L5 transforaminal epidural steroid injections, Dr. Coburn INJECT DX/THER SUBSTANCE INTERLAMINAR LUMBAR/SACRAL W IMAGE GUIDE N/A 08/10/2017 INJECTION SPINE LUMBAR OR SACRAL performed by Nayla Otero MD at [facility] INJECT DX/THER SUBSTANCE INTERLAMINAR LUMBAR/SACRAL W IMAGE GUIDE N/A 02/26/2018 INJECTION SPINE LUMBAR OR SACRAL performed by Nayla Otero MD at [facility] INJECT DX/THER SUBSTANCE INTERLAMINAR LUMBAR/SACRAL W IMAGE GUIDE N/A 08/05/2018 INJECTION SPINE LUMBAR OR SACRAL performed by Nayla Otero MD at [facility] INJECT DX/THER SUBSTANCE INTERLAMINAR LUMBAR/SACRAL W IMAGE GUIDE N/A 12/09/2019 INJECTION SPINE LUMBAR OR SACRAL performed by Nayla Otero MD at [facility] KNEE ARTHROSCOPY, DIAGNOSTIC 10/[address] John at [facility] KNEE ARTHROSCOPY, DIAGNOSTIC 01/[address] Dunn LIGATE/CUT OVIDUCT(S) 1980 Tubal Ligation MISCELLANEOUS ORDER 1987 REMOVAL OF TUMOR RIGHT 4TH FINGER MULTIPLE SLEEP LATENCY TEST 01/2003 sleep apnea seen at then CPAP f/u [id number] CPAP NM MYOCARDIAL PERFUSION IMAGING SPECT MULTIPLE STUDIES WITH PHARMACOLOGIC INTERVENTION 01/25/2015 neg Lexiscan at [facility] OTHER Act 112 Dr. Roque 10/25/2020 OTHER (INFORMATION) ACT [address] BECKETT (5-20-22) PAP SCREEN 08/2000 Dr Worthy REMOVAL OF INNER EYE FLUID Right 12/25/2021 VITRECTOMY MECHANICAL PARS PLANA APPROACH performed by Kayden Beckett MD at [facility] REMOVE CATARACT, INSERT LENS PROSTH Right 06/10/2016 Dr Higgins [facility] REMOVE CATARACT, INSERT LENS PROSTH Left 07/01/2016 Dr Higgins [facility] REPAIR LUMBAR HERNIA 09/11/[address] Jiang 4 screws with a puneet REPAIR RUPTURED ROTATOR CUFF, CHRON 08/22/2014 Right [facility] Dr Dunn SACROILIAC JOINT INJECT W/GUIDANCE Right 04/01/2018 INJECTION SACROILIAC JOINT performed by Nayla Otero MD at [facility] SIGMOIDOSCOPY, DIAGNOSTIC SLEEP APNEA EDU. 2001 neg per Sohan Garcia SLEEP STUDY, W/ CPAP (TREATMENT SETTINGS) 07/2009 mod sleep apnea SLEEP STUDY, W/ CPAP (TREATMENT SETTINGS) fall 2011 18cm [id number] and Carol Ann SARAVIA at [facility] now on 15cm H2O withDr Enriqez UPPER ENDOSCOPY GI REFERRAL OP 09/13/2004 Gastric biopsy, neg., mild gastritis, Dr. Venegas UPPER ENDOSCOPY GI REFERRAL OP 11/[address] Villanueva =esophagitis UPPER GI ENDOSCOPY UPPER GI ENDOSCOPY/EXAM 08/18/2001 esophagitis and gastritis-see scan-per Theo Family History Problem Relation Name Age of [...] Samra Psoriasis Mother Samra Hypertension Father Jaylan Delgadobus Lung cancer, kidney stone history, Lung Disorder Father Jaylan Ceballos Lung cancer, kidney stone history, Cancer Arthritis Father Jaylan Delgadobus Lung cancer, kidney stone history, Cancer Father Jaylan Delgadobus Lung cancer, kidney stone history, lung cancer Eye Problems Father Jaylan Delgadobus Lung cancer, kidney stone history, cataracts Obesity Father Jaylan Delgadobus Lung cancer, kidney stone history, Colon polyps Father Jaylan Delgadobus Lung cancer, kidney stone history, Anemia Father Jaylan Delgadobus Lung cancer, kidney stone history, Hyperlipidemia Father Jaylan Ceballos Lung cancer, kidney stone history, Other (MVA) Sister Gita 42 Obesity Brother Devin Ceballos sleep apnea Allergies Brother Devin Ceballos seasonal Asthma Brother Devin Ceballos had as child, not now Arthritis Brother Devin Ceballos hips Cancer Grandmother (Paternal) Jessie stomach Cancer Grandmother (Paternal) Jessie Ceballos stomach cancer Diabetes Grandfather (Paternal) Bryan Bollinger Heart attack Grandfather (Paternal) Bryan Tucker Heart disease Grandfather (Paternal) Bryan Bollinger Heart failure Grandfather (Paternal) Bryan Tucker Allergies Daughter Esther seasonal Allergies Daughter Kym seasonal Asthma Daughter Barbara had as baby, not now Other (none) Daughter Barbara unaware of family hx of skin related ca or disease Breast Cancer Cousin (Maternal) Social History Tobacco Use Smoking status: Never Smokeless tobacco: Never Tobacco comments: Never used Vaping Use Vaping status: Never Used Substance Use Topics Alcohol use: Not Currently Alcohol/week: 1.0 standard drink of alcohol Types: 1 5 oz of wine per week Drug use: Never ROS: Constitutional: Negative Eyes: No amaurosis fugax Ears: No loss of hearing Mouth/Throat: + compliant with bipap Pulmonary: see HPI Cardiac: As above Gastrointestinal: chronic & diarrhea Vascular: no symptoms of claudication. Hematology: Denies bleeding problems. Musculoskeletal: generalized joint pain. Skin: Negative Neuro: No TIA/CVA symptoms. : No dysuria, no frequency and no nocturia. Psych: No depression and no anxiety. Physical Exam: BP 126/76 | Pulse 75 | Ht 1.6 m (5' 3") | Wt 117 kg (258 lb) | LMP 03/08/2008 | SpO2 96% | BMI 45.70 kg/m | BSA 2.28 m General: No acute distress. HEENT: Unremarkable. Neck: No adenopathy; thyroid ok; no JVD. Pulmonary: Clear to auscultation bilaterally, no distress, no dullness to percussion, no wheezing. Cardiac: Regular, no murmur, normal S1, and S2, no S3, no S4, no rub, normal PMI. CAROTID Right +3 Left+3 Bruit no BRACHIAL Right +3 Left+3 RADIAL Right +3 Left+3 Neuro: AAOx3, teacher emotionally impaired strength equal, no facial drooping. Abdomen: soft, nontender, no hepatomegaly felt, +BS, no bruits. Extremities: No edema. Skin: Unremarkable. Impressions and Recommendations: 1. PRE-OPERATIVE CARDIAC EVALUATION 2. HYPERTENSION 3. HYPERLIPIDEMIA 4. SINUS TACHYCARDIA 5. CHRONIC DYSPNEA ON EXERTION Ms. Mast has no known CAD. She has a history of cardiomyopathy by echo in 2019. Subsequent imaging since that time has shown a normal LV function. She is scheduled for SI joint fusion with Dr. Jiang at [facility]. She is plagued by chronic pain and is unable to achieve 4 METS. She has suffered from DAVIS for many years which has remained stable. Her last ischemic evaluation was in 2020 and was normal. She is having no chest pain symptoms. Recent EKG showed NSR. Since she is unable to achieve 4 METS, an updated nuclear stress test is recommended. I will call her with the results. Her BP is controlled. Will continue current therapy. -nuclear stress test -continue Metoprolol XL 50 mg BID -continue valsartan 40 mg daily -continue atorvastatin 40 mg daily -continue ASA 81 mg daily (ok to hold 7 days prior to surgery if needed) Check-out note: Nuclear stress test at [facility]. Return with Dr. Mullen in 1 year [facility] [address] [facility] [place] [id number] cc: Araceli Mays MD documented in this encounter Plan of Treatment Upcoming Encounters Date Type Department Care Team (Late st Contact Info) Description 04/18/2024 8:00 AM EST Appointment Radiology, [address] [address] 04/19/2024 8:00 AM EST Appointment Radiology, [address] [address] 06/08/2024 2:00 PM EST Telemedicine Cardiology, [address] [address] [facility] Cardiology [address] [place] [address] 07/07/2024 12:00 PM EST Office Visit Gastroenterology, [facility] [address] [facility] [place] [id number] Alexandra Jones PA-C [address] [place] [address] 08/09/2024 10:00 AM EDT Telemedicine Pharmacy, [address] [place] [address] [facility] [address] [place] [address] 10/05/2024 12:50 PM EDT [facility] [address] [phone] Yashira Kidd MD [address] [place] [address] 03/16/2025 3:00 PM EDT Office Visit Cardiology, [place] [address] [place] [address] Lissette Mullen MD [address] [place] [address] 06/09/2025 10:00 AM EST Office Visit [facility] [place] [facility] [phone] Araceli Mays MD [address] [place] [address] Scheduled Orders Name Type Priority Associated Diagnoses Orde r Schedule NM MYOCARD PERF IMG SPECT MULT STUDIES WITH PHARM INTERV Cardiology Routine Pre-operative cardiovascular examination DAVIS (dyspnea on exertion) HTN, goal below 130/80 Hyperlipidemia with target LDL less than 100 Type 2 diabetes mellitus with hemoglobin A1c goal of less than 7.0% (HCC) Expected: 04/13/2024 (Approximate), Expires: 05/13/2025 Scheduled Procedures Name Priority Associated Diagnoses Date/Ti [...] 12/16/2022, Additional history exists HbA1c 09/21/2024 03/23/2024, 0811/2023, 08/25/2023, Additional history exists Colonoscopy 02/27/2025 02/27/2022, 1010/2021, 11/01/2018, Additional history exists Colorectal Cancer Screening [...] this encounter Medical Devices Implanted Type Area Commercial Artist Device Identifier Shelf Expiration Date Model / Serial / Lot Clip Quick 2.8mm 230cm - [id number] Implanted:Qty : 2 on 02/27/2022 by Mirna Hernandez MD at [facility] N/A: Esophagus [employer] 06/04/2024 [id number] / [id number] Description:[email or web address] documented as of this encounter Visit Diagnoses Diagnosis Pre-operative cardiovascular examination- Primary DAVIS (dyspnea on exertion) Other dyspnea and respiratory abnormality HTN, goal below 130/80 Unspecified essential hypertension Hyperlipidemia with target LDL less than 100 Other and unspecified hyperlipidemia Type 2 diabetes mellitus with hemoglobin A1c goal of less than 7.0% (HCC) ZACKARY on CPAP Obstructive sleep apnea (adult) (pediatric) Fibromyalgia Mylagia and myositis, unspecified Irritable bowel syndrome with both constipation and diarrhea documented in this encounter Advance Directives * [...] Power of Attor patricia? No Care Teams Bank Courier Relationship Specialty Start Date End Date Araceli Mays MD [address] [place] [address] PCP - General 10/08/01 documented as of this encounter
[2024-05-02] MEDS ORDERED: ONDANSETRON 4 MG OD TAB PO PRN (13:19)
[2024-05-02] MEDS ORDERED: CLOBETASOL PROPIONATE 0.05% CREAM 15 GM TUBE TOP PRN (13:19)
[2024-05-02] MEDS ORDERED: METOCLOPRAMIDE HCL INJ 5 MG/ML 2 ML VIAL IV PRN (13:19)
[2024-05-02] MEDS ORDERED: HYDROCODONE/ACETAMOPHEN 5/325MG TAB PO PRN (13:19)
[2024-05-02] MEDS ORDERED: ONDANSETRON INJ 2 MG/ML 2 ML VIAL IV PRN (13:19)
[2024-05-02] MEDS ORDERED: DICYCLOMINE HCL 10 MG CAP PO PRN (13:19)
[2024-05-02] MEDS ORDERED: PROMETHAZINE 12.5 MG/50.5 ML BAG IV PRN (13:19)
[2024-05-02] MEDS ORDERED: HYDROmorphone INJ 0.5 MG/0.5 ML SYR IV PRN (13:19)
[2024-05-02] MEDS ORDERED: NALOXONE HCL 0.4 MG/1 ML VIAL/CARP IV PRN (13:19)
[2024-05-02] MEDS ORDERED: ACETAMINOPHEN 1,000 MG/100 ML VIAL IV PRN (13:19)
[2024-05-02] MEDS ORDERED: HYDROmorphone INJ 1 MG/ML SYRINGE IV PRN (13:19)
[2024-05-02] MEDS ORDERED: ACETAMINOPHEN 500 MG TAB PO PRN (13:19)
[2024-05-02] MEDS ORDERED: LORazepam 0.5 MG TAB PO PRN (13:19)
[2024-05-02] MEDS ORDERED: GLUCOSE 10 TAB/TUBE PO PRN (13:45)
[2024-05-02] MEDS ORDERED: DEXTROSE 50% 50 ML SYRINGE IV PRN (13:45)
[2024-05-02] MEDS ORDERED: CARBOHYDRATES FOR HYPOGLYCEMIA PO PRN (13:45)
[2024-05-02] MEDS ORDERED: GLUCOSE 40% GEL 15 GM TUBE PO PRN (13:45)
[2024-05-02] MEDS ORDERED: GLUCAGON FOR INJ 1 MG VIAL SQ PRN (13:45)
--- NOTE | 2024-05-02 13:58 | Anesthesiology Progress Note ---
Date of Service May 02, 2024 Anesthesia Post Procedure Vital Signs Vital Signs: Temp Pulse Pulse Resp BP BP Pulse Ox 05/02/24 13:53 05/02/24 13:25 36.4 C L 75 19 104/68 92 05/02/24 12:50 70 16 111/50 L 92 05/02/24 12:20 64 17 111/56 L 94 05/02/24 12:05 65 16 115/62 94 05/02/24 11:50 68 15 114/67 92 05/02/24 11:35 64 16 102/69 96 05/02/24 11:20 36.2 C L 70 15 113/65 92 05/02/24 11:10 71 14 117/62 93 05/02/24 11:00 78 16 112/60 98 05/02/24 10:50 77 15 119/62 96 05/02/24 10:40 78 15 124/72 99 05/02/24 10:34 36.1 C L 78 17 136/82 98 05/02/24 08:32 37.1 C 72 20 141/67 H 95 O2 Del Method O2 Flow Rate 05/02/24 13:53 Nasal Cannula 2 05/02/24 13:25 Nasal Cannula 2 05/02/24 12:50 Nasal Cannula 2 05/02/24 12:20 Nasal Cannula 2 05/02/24 12:05 Nasal Cannula 2 05/02/24 11:50 Nasal Cannula 2 05/02/24 11:35 Nasal Cannula 2 05/02/24 11:20 Room Air 05/02/24 11:10 Room Air 05/02/24 11:00 Oxymask 6 05/02/24 10:50 Oxymask 6 05/02/24 10:40 Oxymask 10 05/02/24 10:34 Oxymask 10 05/02/24 08:32 Room Air Pain Intensity Right Other: Pain Intensity: 2 Transfer of Care Handoff Completed per policy Notes Mental Status: alert / awake / arousable and participated in evaluation Nausea / Vomiting: adequately controlled Pain: adequately controlled Airway Patency, RR, SpO2: stable & adequate BP & HR: stable & adequate Hydration State: stable & adequate Anesthetic Complications: no major complications apparent and Pt Satisfied with anesthetic care
[2024-05-02] MEDS: traMADol HCL 50 MG TABLET PO PRN (14:16)
[2024-05-02 15:27] VITALS: BP 107/63; PULSE 81; RESP 18; TEMP 99; O2SAT 94
[2024-05-02] MEDS ORDERED: INSULIN ASPART PER UNIT CHARGE SC SCH (16:30)
[2024-05-02] MEDS: PREGABALIN 150 MG CAP PO SCH (17:14)
[2024-05-02] MEDS: BACLOFEN 10 MG TAB PO SCH (17:14)
[2024-05-02] MEDS: General Order Problem(s) SCH (17:14)
[2024-05-02] MEDS ORDERED: PANTOprazole 40 MG TAB PO SCH (21:00)
[2024-05-02] MEDS ORDERED: CHOLECALCIFEROL 25 MCG (1000 UNITS) TAB PO SCH (21:00)
[2024-05-02] MEDS ORDERED: diphenhydrAMINE Capsule 25 MG CAP PO SCH (21:00)
[2024-05-02] MEDS ORDERED: CeleBREX 200 MG CAP PO SCH (21:00)
[2024-05-02] MEDS ORDERED: TOPIRAMATE 100 MG TAB PO SCH (21:00)
[2024-05-02] MEDS ORDERED: ACETAMINOPHEN 500 MG TAB PO SCH (21:00)
[2024-05-02] MEDS ORDERED: METOPROLOL SUCC 50MG EXT REL TAB PO SCH (21:00)
[2024-05-02] MEDS ORDERED: LUBIPROSTONE 8 MCG CAP PO SCH (21:00)
[2024-05-02] MEDS ORDERED: DULoxetine HCL 60 MG CAP PO SCH (21:00)
[2024-05-03] MEDS ORDERED: ESCITALOPRAM OXALATE 20 MG TAB PO SCH (09:00)
[2024-05-03] MEDS ORDERED: VALSARTAN 80 MG TAB PO SCH (09:00)
[2024-05-03] MEDS ORDERED: ASPIRIN 81 MG ECTAB PO SCH (09:00)
[2024-05-03] MEDS ORDERED: ATORVASTATIN 40 MG TAB PO SCH (09:00)
[2024-05-03] MEDS ORDERED: SITagliptin PHOSPHATE 25 MG TAB PO SCH (09:00)
--- NOTE | 2024-05-04 10:19 | Discharge Summary ---
Date of Service May 04, 2024 Admission HPI Per Admitting Provider This is a 73-year-old female well-known to me the presents with chronic persistent sacroiliitis. After failing course of nonoperative care is here for surgical invention. Admission Exam (Per Admitting) Constitutional WD/WN, vitals as above Eyes normal visual kenney by confrontation ENMT external ear and nose normal, oropharynx normal Neck normal visual inspection Respiratory normal respiratory effort Cardiovascular Extremities: normal capillary refill Gastrointestinal (Abdomen) Inspection/Auscultation: abdomen normal to inspection Musculoskeletal Spine: + sciatic notch tenderness and + sacroiliac joint abnormality Extremities: extremities normal to inspection and strength 5/5 throughout Skin no rashes, warm and dry Neurologic normal touch/pain/proprioception and moves all extremities Psychiatric A+Ox3, euthymic affect Discharge Data Procedures Performed Operation Date: 05/02/24 09:45 Actual Procedures p Right Spine Sacroiliac Joint Fusion with Spinal Cord Monitoring(Right) - iMke Jiang DO Hospital Course (1) Sacroiliitis: Nuvia was discharged home postop day 0 status post right SI joint fusion. She had an uneventful postoperative course. Pain controlled. Discharge Instructions ACTIVITY RECOMMENDATIONS: SELF CARE INSTRUCTIONS AFTER THORACIC/LUMBAR FUSIONS 1. You may walk to your tolerance. It is good exercise for your legs and back. Expect some back and intermittent leg aches and pains. 2. You may perform "counter-top" level activities (make a sandwich, josef with a project, etc.). 3. No bending or lifting of more than 10 pounds or back twisting of any nature (roll like a log when turning in bed). 4. You may ride in a car for 20-30 minutes at a time. No driving until after your first visit with your doctor. 5. Frequent changes of position and restricting sitting to 30 minutes at a time will help limit the amount of back spasms and stiffness you may experience. 6. You may discontinue the use of ambulatory aids (cane, crutches, etc.) once your strength and confidence allow. 7. You may bellstand attendant the shower and let water strike your incision when you arrive home at least once daily. Do not take a tub bath, sit in a hot tub or go into a swimming pool until after your first recheck in the office. 8. You may resume previous diet. SPECIAL CARE INSTRUCTIONS: VERY IMPORTANT TO READ AND REVIEW A. Your surgical incision has been closed with a cosmetic suture under the skin that will dissolve in about 6 weeks. In 14 days, you can use a pair of clean scissors and cut the suture that is left outside of the skin at the ends of your incision. 1. The small skin tapes can be removed 7 days after surgery if they have not fallen off by that point. 2. You may keep the wound open to air as much as possible to promote healing after post-op day number 5 unless told otherwise by your doctor. 3. If you think the wound looks like it is becoming infected (redness or worsening drainage) and/or you are experiencing fever, chill or worsening back pain and muscle spasms, contact the office so that we may evaluate you as soon as possible. B. Complications are uncommon, but please contact us if you have any signs or symptoms of: 1. wound infection (fever higher than 102.5 degrees F, redness, separation of wound, drainage, or increasing pain from the incision) 2. blood clots in legs (pain, swelling, redness and warmth in legs) 3. urinary tract infection (fever higher than 102.5 degrees F, burning upon urination or increased frequency of urination) 4. nerve problems (inability to walk on your toes or heels, numbness, loss of bowel or bladder control) 5. any other symptoms that concern you C. Please call the office at if you have any concerns or questions about your operation or recovery. D. No smoking! Smoking drastically decreases the chance of a solid fusion. E. Do not take any anti-inflammatory medications (Indocin, Advil, Motrin, Aspirin, Naprosyn, etc.) as these may inhibit the chance of a solid fusion. Tylenol is okay to take for pain. MANAGING PAIN AFTER SPINAL SURGERY 1. Narcotic medication is intended for short-term use and will be provided for surgical pain. Surgical pain usually lasts for a period of 4-6 weeks. Narcotic medication includes Percocet, Vicodin, Darvocet, Tylenol #3 or Lortab. 2. Longer-term pain is more appropriately treated with non-narcotic medication such as Tylenol ES. 3. Muscle spasm is not appropriately treated with narcotics. Muscle relaxers such as Soma, Flexeril or Skelaxin can be used along with Tylenol ES. 4. Remember that we all live with some "aches and pains". This is not unusual or uncommon after an injury or as we get older. a. Back pain is expected and may include muscle spasms for 4 to 6 weeks after surgery. The pain should gradually improve. If the pain worsens for no apparent reason, please contact the office. b. Intermittent leg pain may also be experienced and should not be concerned about unless it worsens for no apparent reason. If so, please contact the office. 5. We will provide appropriate medication within the normal guidelines of their prescribed use. We will also be very cautious and aware of potential abuse and extended duration of patients' medication needs. a. Pain medications are for your comfort and to assist with sleep and rest so that the tissue can heal. They are not provided in order to return to normal activity and should not be used through the day. To do so or worsening pain at night can result from ongoing tissue damage and development of tolerance to the prescribed medicine. 6. Please allow 2-3 days to process refills. Prescriptions will not be mailed but must be picked up at the office. FOLLOW UP VISIT: Keep your scheduled follow-up appointment. Any questions, please call the office at .
[2024-05-06] MEDS ORDERED: ERGOCALCIFEROL 1250 MCG (50,000 UNITS) CAP PO SCH (09:00)
== END 2024-05-02 17:17 | disposition home or self-care (01) | DRG 451 ==
LOC: ASU 08:03 → PACUINP 10:28 → 3E 13:20

== ENCOUNTER 2024-12-05 09:54 | Inpatient (IN) ==
--- NOTE | 2024-11-15 10:31 | PAT Medication Instructions ---
Medication Instructions Date of Service November 15, 2024 Home Medications ergocalciferol (vitamin D2) 1,250 mcg (50,000 unit) capsule 50,000 unit PO WK ketoconazole 2 % shampoo 2 % topical WK PRN omeprazole 20 mg tablet,delayed release 20 mg PO BID pregabalin 150 mg capsule (Lyrica) 150 mg PO QAM acetaminophen 500 mg tablet 500 - 1,000 mg PO UD aspirin 81 mg tablet,delayed release 81 mg PO QAM atorvastatin 40 mg tablet 40 mg PO QPM baclofen 10 mg tablet 10 mg PO HS celecoxib 200 mg capsule (Celebrex) 200 mg PO BID cholecalciferol (vitamin D3) 50 mcg (2,000 unit) capsule (Vitamin D3) 50 mcg PO BID clobetasol 0.05 % topical cream 1 applic topical DAILY PRN dicyclomine 10 mg capsule 10 mg PO DAILY PRN diphenhydramine 25 mg-acetaminophen 500 mg tablet (Tylenol PM Extra Strength) 1 tab PO HS duloxetine 60 mg capsule,delayed release 60 mg PO BID galcanezumab-gnlm 120 mg/mL subcutaneous pen injector (Emgality Pen) 120 mg subcut Q30D lidocaine 5 % topical patch 1 patch topical DAILY PRN lubiprostone 24 mcg capsule (Amitiza) 24 mcg PO BID metoprolol succinate 50 mg tablet,extended release 24 hr 50 mg PO BID prucalopride 2 mg tablet (Motegrity) 2 mg PO QAM sitagliptin phosphate 50 mg tablet (Januvia) 50 mg PO QAM topiramate 100 mg tablet 100 mg PO HS valsartan 40 mg tablet 40 mg PO QAM cyanocobalamin (vitamin B-12) 1,000 mcg tablet (Vitamin B-12) 1,000 mcg PO DAILY gabapentin 600 mg tablet 600 mg PO BID multivitamin 1 tab PO DAILY ubrogepant 100 mg tablet (Ubrelvy) 100 mg PO UD PRN Continue as directed acetaminophen 500 mg tablet 500 - 1,000 mg PO UD galcanezumab-gnlm 120 mg/mL subcutaneous pen injector (Emgality Pen) 120 mg subcut Q30D ubrogepant 100 mg tablet (Ubrelvy) 100 mg PO UD PRN(if needed) ASK your surgeon for instructions celecoxib 200 mg capsule (Celebrex) 200 mg PO BID ASK your prescriber and surgeon aspirin 81 mg tablet,delayed release 81 mg PO QAM lidocaine 5 % topical patch 1 patch topical DAILY PRN STOP taking 24 hours before surgery ketoconazole 2 % shampoo 2 % topical WK PRN clobetasol 0.05 % topical cream 1 applic topical DAILY PRN DO NOT take the morning of surgery ergocalciferol (vitamin D2) 1,250 mcg (50,000 unit) capsule 50,000 unit PO WK cholecalciferol (vitamin D3) 50 mcg (2,000 unit) capsule (Vitamin D3) 50 mcg PO BID dicyclomine 10 mg capsule 10 mg PO DAILY PRN lubiprostone 24 mcg capsule (Amitiza) 24 mcg PO BID prucalopride 2 mg tablet (Motegrity) 2 mg PO QAM sitagliptin phosphate 50 mg tablet (Januvia) 50 mg PO QAM valsartan 40 mg tablet 40 mg PO QAM cyanocobalamin (vitamin B-12) 1,000 mcg tablet (Vitamin B-12) 1,000 mcg PO DAILY multivitamin 1 tab PO DAILY Take morning of surgery With a small sip of water, OTHERWISE NOTHING TO EAT OR DRINK AFTER MIDNIGHT: omeprazole 20 mg tablet,delayed release 20 mg PO BID pregabalin 150 mg capsule (Lyrica) 150 mg PO QAM duloxetine 60 mg capsule,delayed release 60 mg PO BID metoprolol succinate 50 mg tablet,extended release 24 hr 50 mg PO BID gabapentin 600 mg tablet 600 mg PO BID Take evening before surgery omeprazole 20 mg tablet,delayed release 20 mg PO BID atorvastatin 40 mg tablet 40 mg PO QPM baclofen 10 mg tablet 10 mg PO HS cholecalciferol (vitamin D3) 50 mcg (2,000 unit) capsule (Vitamin D3) 50 mcg PO BID diphenhydramine 25 mg-acetaminophen 500 mg tablet (Tylenol PM Extra Strength) 1 tab PO HS duloxetine 60 mg capsule,delayed release 60 mg PO BID lubiprostone 24 mcg capsule (Amitiza) 24 mcg PO BID metoprolol succinate 50 mg tablet,extended release 24 hr 50 mg PO BID topiramate 100 mg tablet 100 mg PO HS gabapentin 600 mg tablet 600 mg PO BID Other Notes If you have any questions please call us at [phone] or [phone] or or [phone]
--- NOTE | 2024-11-21 10:55 | Anesthesiology Consultation ---
Date of Service November 21, 2024 Assessment & Plan (1) Encounter for pre-operative examination: Chart Review Chart Review: Acceptable Risk for Surgery (pending surgeon ordered PCP and cardio clearances ) and Patient seen in Pre Admission Testing - Awaiting PCP clearance 11/29/24 (Dr Araceli Mays) - Awaiting cardio clearance 11/24/24 (Dr Mullen- [facility] Cardio) - Check BSG AM DOS Jehovah Witness - patient requests NO blood products. Preop T&S cancelled per patient request Per PAT appt on 11/21/24, no recent illness/disease exposures, illness related symptoms, or recent illness/disease positive tests. Will leave to surgeon's discretion if preop Covid testing needed Right SI Joint Fusion 05/02/24= Done under [place] with Grade 1 view with Glidescope #3. ETT #7.0. Teaching & Discussion Pre-Anesthesia Teaching/Discussion Notes: Instructed NPO after midnight before surgery,except medications with 15 cc of water. Medication instructions provided according to the PAT guidelines. History Surgery Operation Date: 12/05/24 10:05 Proposed Procedures p L4-L5, L3-L4 Hardware Removal, L3-L5 Decompression and Fusion, Spinal Cord Monitoring - Mike Jiang, Height/Weight Height: 5 ft 3 in Weight: 115.4 kg Allergies Allergy/AdvReac Type Severity Reaction Status Date / Time sucralfate Allergy Unknown Unknown Verified 11/11/24 10:55 tizanidine AdvReac Severe Hallucinati Verified 11/11/24 10:55 ng bupropion AdvReac Intermediate Anxious Verified 11/11/24 10:55 ergotamine AdvReac Intermediate Dry Heaving Verified 11/11/24 10:55 fremanezumab-vfrm AdvReac Intermediate Severe Verified 11/11/24 10:55 head pain for three days oxycodone AdvReac Intermediate See below Verified 11/21/24 10:41 tartrazine AdvReac Intermediate Nausea Uncoded 11/11/24 10:55 Medications Home Medications Medication Instructions Recorded Confirmed Last Taken ergocalciferol (vitamin D2) 1,250 50,000 unit PO WK 10/13/18 11/11/24 10/29/18 mcg (50,000 unit) capsule ketoconazole 2 % shampoo 2 % topical WK PRN scalp irritation 10/13/18 11/11/24 10/01/18 omeprazole 20 mg tablet,delayed 20 mg PO BID 10/13/18 11/11/24 05/02/24 05:30 release acetaminophen 500 mg tablet 500 - 1,000 mg PO UD 04/05/24 11/11/24 05/01/24 20:30 aspirin 81 mg tablet,delayed 81 mg PO QAM 04/05/24 11/11/24 05/01/24 07:30 release atorvastatin 40 mg tablet 40 mg PO QPM 04/05/24 11/11/24 05/02/24 05:30 baclofen 10 mg tablet 10 mg PO HS 04/05/24 11/11/24 05/02/24 05:30 celecoxib 200 mg capsule (Celebrex) 200 mg PO BID 04/05/24 11/11/24 Unknown cholecalciferol (vitamin D3) 50 50 mcg PO BID 04/05/24 11/11/24 05/01/24 20:30 mcg (2,000 unit) capsule (Vitamin D3) clobetasol 0.05 % topical cream 1 applic topical DAILY PRN Rash 04/05/24 11/11/24 Unknown dicyclomine 10 mg capsule 10 mg PO DAILY PRN Abdominal Pain 04/05/24 11/11/24 Unknown diphenhydramine 25 1 tab PO HS 04/05/24 11/11/24 Unknown mg-acetaminophen 500 mg tablet (Tylenol PM Extra Strength) duloxetine 60 mg capsule,delayed 60 mg PO BID 04/05/24 11/11/24 05/02/24 05:30 release galcanezumab-gnlm 120 mg/mL 120 mg subcut Q30D 04/05/24 11/11/24 Unknown subcutaneous pen injector (Emgality Pen) lidocaine 5 % topical patch 1 patch topical DAILY PRN Pain 04/05/24 11/11/24 Unknown lubiprostone 24 mcg capsule 24 mcg PO BID 04/05/24 11/11/24 Unknown (Amitiza) metoprolol succinate 50 mg 50 mg PO BID 04/05/24 11/11/24 05/02/24 05:30 tablet,extended release 24 hr prucalopride 2 mg tablet 2 mg PO QAM 04/05/24 11/11/24 Unknown (Motegrity) sitagliptin phosphate 50 mg tablet 50 mg PO QAM 04/05/24 11/11/24 05/01/24 08:30 (Januvia) topiramate 100 mg tablet 100 mg PO HS 04/05/24 11/11/24 05/01/24 20:30 valsartan 40 mg tablet 40 mg PO QAM 04/05/24 11/11/24 05/02/24 05:30 cyanocobalamin (vitamin B-12) 1,000 mcg PO DAILY 11/11/24 11/11/24 Unknown 1,000 mcg tablet (Vitamin B-12) gabapentin 600 mg tablet 600 mg PO BID 11/11/24 11/11/24 Unknown multivitamin 1 tab PO DAILY 11/11/24 11/11/24 Unknown ubrogepant 100 mg tablet (Ubrelvy) 100 mg PO UD PRN Migraine Headache 11/11/24 11/11/24 Unknown Past Medical History Medical History Adverse effect of anesthesia "With vitrectomy in recovery I had a hard time breathing but I think it was because I was drinking too fast and swallowed some air." Anxiety Chronic constipation Degenerative disc disease Depression Diverticular disease x2 hospitalizations - been a few years since any complications no recent flares Fibromyalgia GERD (gastroesophageal reflux disease) well controlled and stable Hearing loss, right totally deaf right ear Heart failure [facility] Cardiology Dr Mullen EF 65-69% per 06/2023 ECHO History of COVID-19 12/2023- no current symptoms History of hypertension well controlled w/medication per pt. 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 Sleep apnea BIPAP Spinal stenosis Type 2 diabetes mellitus oral Exercise / Class Metabolic Activity III < 4 Walking/Shop/Light housework (no chest pain or SOB with flat surface, short distance ambulation- uses walker due to hip pain since 04/2024) Past Family History Family History Grandfather (Paternal) Family history of diabetes mellitus Uncle Family history of esophageal cancer Grandmother (Paternal) Family history of stomach cancer Other No family history of adverse response to anesthesia Past Surgical History Surgical History History of arthroscopy of left knee History of arthroscopy of right knee History of back surgery 05/02/24-right SI joint fusion, [facility] History of bilateral tubal ligation History of colonoscopy (2021) multiple with polypectomy History of dilatation and curettage History of esophagogastroduodenoscopy (EGD) esophageal polyps removed in 2021 (had two clips placed by Dr Hernandez) History of lumbar laminectomy for spinal cord decompression x2--hardware in place, most recent 2008 History of phacoemulsification of cataract of both eyes with intraocular lens implantation History of repair of left rotator cuff History of wisdom tooth extraction Hx of vitrectomy Right Status post right foot surgery plantar fasciitis Past Anesthesia History No Hx of Anesthesia Complications and No Family Hx of Anesthesia Complications History of PONV No Hx of PONV and No Hx of Motion Sickness Social History Smoking Status: Never smoker Do You Dip or Chew Tobacco: No Hx Alcohol Use: No Hx Substance Use: No substance use type: does not use Review of Systems - Chronic cough x years- mild and stable Patient denies chest pain, shortness of breath, dyspnea on exertion, cough, wheezing, palpitations. No hx of stroke, CO. No hx of blood clots or blood transfusions Physical Exam Vital Signs VITALS BP 100/67 (confirmed manually- denies any symptoms- will be seeing cardio and PCP prior to appt- will recheck BP at home) P 72 TEMP 97.6 SP02 93% RESP 16 Constitutional no acute distress ENMT Mouth: no TMJ clicking Thyromental Distance: > or= 3.5 Finger Breadths (3.5) Mallampati Class: I (smaller airway) Missing side teeth and molars Neck + limited neck extension Respiratory normal respiratory effort; no respiratory distress Auscultation: lungs clear to auscultation bilaterally; no wheezes Cardiovascular Rate/Rhythm: regular rate and regular rhythm Heart Sounds: no murmur Vessels: no carotid bruit Musculoskeletal Spine: + pain with cervical ROM Extremities: extremities normal to inspection Psychiatric Orientation: alert Lab Results Anesthesia Preop Results Results Anesthesia Widget: WBC 6.96 K/ul (4.8-10.8) 11/21/24 Hgb 12.7 g/dl (12.0-16.0) 11/21/24 Hct 39.1 % (37.0-47.0) 11/21/24 Plt 160 K/uL (130-400) 11/21/24 Na 139 mmol/L (136-145) 11/21/24 K 3.8 mmol/L (3.5-5.1) 11/21/24 Cl 108 mmol/L (98-107) H 11/21/24 CO2 24 mmol/L (21-32) 11/21/24 BUN 15 mg/dl (6-23) 11/21/24 Creat 0.77 mg/dl (0.6-1.2) 11/21/24 Glucose Level 144 mg/dl (70-99(Fasting)) H 11/21/24 PT 10.4 Seconds (9.0-12.0) 11/21/24 PTT 27 Seconds (21-31) 11/21/24 INR 1.0 (0.9-1.1) 11/21/24 HA1c 5.9 % (4.5-5.6) H 11/21/24 Urine Color Yellow 11/21/24 Urine Appearance Clear (Clear) 11/21/24 Urine pH 6.5 (4.5-7.5) 11/21/24 Urine Specific [place] 1.006 (1.000-1.030) 11/21/24 Urine Protein Negative (Negative) 11/21/24 Urine Glucose (UA) Negative (Negative) 11/21/24 Urine Ketones Negative (Negative) 11/21/24 Urine Blood Negative (Negative) 11/21/24 Urine Nitrite Negative (Negative) 11/21/24 Urine Bilirubin Negative (Negative) 11/21/24 Urine Urobilinogen Negative (Negative) 11/21/24 Urine Leukocyte Esterase 2+ (Negative) H 11/21/24 Urine WBC (Auto) 21-50 /hpf (0-5) H 11/21/24 Urine RBC (Auto) 0-2 /hpf (0-2) 11/21/24 Urine Hyaline Casts (Auto) 0-2 /lpf (0-2) 11/21/24 Urine Epithelial Cells (Auto) 0-2 /hpf (0-2) 11/21/24 Urine Bacteria (Auto) 2+ (None Seen) H 11/21/24 Testing Laboratory Results Abnormal UA- surgeon's office informed - will leave to surgeon's discretion on how to proceed Electrocardiogram Date: 04/04/24 Findings: + NSR @ (63bpm) High QRS voltage may be normal variant or due to LVE When compared to EKG from August 13, 2020- no significant change was found per cardio Chest X-Ray Date: 04/12/24 Findings: + NAD FINDINGS: Mild cardiomegaly. Pulmonary vasculature appear within normal limits. No infiltrate, pleural effusion or pneumothorax. No acute osseous abnormality evident. Echocardiogram Date: 06/25/23 EF: 65-69% LV Function: normal RWMA: + none Other Findings: + LVH (mild/concentric) and + diastolic dysfunction (Grade I ) Valvular Disease: + no significant valvular disease Stress Test Date: 04/18/24 Type: nuclear Lexiscan nuclear stress test negative for ischemia. LVEF is 72%. Gated SPECT images reveals normal myocardial thickening and wall motion. Decreased counts noted in the apex that improved with stress suggestive of attenuation artifact Cervical Spine Date: 08/25/23 There is spondylosis of the cervical spine No acute osseous abnormality Other Testing Event monitor 05/15/23= Min HR 45bpm, max HR 111bpm, average HR 73bpm/ Predominant rhythm was SR. 2 isolated SVEs were rare, SVE couplets were rare, and SVE triplets were rare. Isolated VEs were rate, and no VE couplets or VE triplets were present. Triggered and reported events are associated with sinus rhythm and sinus tachycardia. No arrhythmias
[2024-12-05] MEDS ORDERED: MIDAZOLAM HCL 1 MG/ML 2ML VIAL ONE (10:13)
[2024-12-05] MEDS ORDERED: LIDOCAINE 2% 2 ML VIAL/AMP(20MG/ML) INFIL ONE (10:13)
[2024-12-05] MEDS ORDERED: PROPOFOL IV EMULSION 10 MG/ML 20 ML VIAL IV ONE (10:13)
[2024-12-05] MEDS ORDERED: ROCURONIUM BROMIDE 10 MG/ML 5 ML VIAL IV ONE (10:13)
[2024-12-05] MEDS ORDERED: DEXAMETHASONE SOD INJ 4 MG/ML VIAL ONE (10:13)
[2024-12-05] MEDS ORDERED: ONDANSETRON INJ 2 MG/ML 2 ML VIAL ONE (10:13)
[2024-12-05] MEDS ORDERED: SUGAMMADEX SODIUM 200 MG/2 ML VIAL IV ONE (10:14)
[2024-12-05] MEDS: ACETAMINOPHEN 500 MG TAB PO SCH (10:43)
[2024-12-05] MEDS: GABAPENTIN 300 MG CAP PO SCH (10:43)
[2024-12-05] MEDS: CeleBREX 200 MG CAP PO SCH (10:44)
[2024-12-05] MEDS: LR 15ML/HR IV SCH (10:44)
[2024-12-05] MEDS: LR 60ML/HR IV SCH (10:44)
[2024-12-05] MEDS ORDERED: ATROPINE SULFATE 0.1 MG/ML 10ML SYR IV PRN (10:52)
[2024-12-05] MEDS ORDERED: PROMETHAZINE HCL 6.25 MG in SODIUM CHLORIDE 0.9% 50 ML IV PRN (10:52)
--- NOTE | 2024-12-05 12:26 | History & Physical Bridge Note ---
Date of Service December 05, 2024 History & Physical Bridge Note I have examined the patient, reviewed the History & Physical and in the interval since the performance of the History & Physical I have noted the following changes of clinical significance: no changes noted
--- NOTE | 2024-12-05 12:27 | History & Physical Report ---
Date of Service December 05, 2024 Assessment & Plan (1) Spondylolisthesis, lumbar region: Plan: L4-L5 hardware removal L4-L5 L3-L4 decompression fusion L3-L5 History of Present Illness Chief Complaint: Back and leg pain Primary Care Provider: Araceli Mays MD This is a 74-year-old female who presents with chronic persistent back and leg pain after failing course of nonoperative care is here for surgical intervention. Allergies Allergy/AdvReac Type Severity Reaction Status Date / Time sucralfate Allergy Unknown Unknown Verified 12/05/24 10:16 tizanidine AdvReac Severe Hallucinati Verified 12/05/24 10:16 ng bupropion AdvReac Intermediate Anxious Verified 12/05/24 10:16 ergotamine AdvReac Intermediate Dry Heaving Verified 12/05/24 10:16 fremanezumab-vfrm AdvReac Intermediate Severe Verified 12/05/24 10:16 head pain for three days oxycodone AdvReac Intermediate See below Verified 12/05/24 10:16 tartrazine AdvReac Intermediate Nausea Uncoded 12/05/24 10:16 Home Medications Medication Instructions Recorded Confirmed Type ergocalciferol (vitamin D2) 1,250 50,000 unit PO WK 10/13/18 12/05/24 History mcg (50,000 unit) capsule ketoconazole 2 % shampoo 2 % topical WK PRN scalp irritation 10/13/18 12/05/24 History omeprazole 20 mg tablet,delayed 20 mg PO BID 10/13/18 12/05/24 History release acetaminophen 500 mg tablet 500 - 1,000 mg PO UD 04/05/24 12/05/24 History aspirin 81 mg tablet,delayed 81 mg PO QAM 04/05/24 12/05/24 History release atorvastatin 40 mg tablet 40 mg PO QPM 04/05/24 12/05/24 History baclofen 10 mg tablet 10 mg PO HS 04/05/24 12/05/24 History celecoxib 200 mg capsule (Celebrex) 200 mg PO BID 04/05/24 12/05/24 History cholecalciferol (vitamin D3) 50 50 mcg PO BID 04/05/24 12/05/24 History mcg (2,000 unit) capsule (Vitamin D3) clobetasol 0.05 % topical cream 1 applic topical DAILY PRN Rash 04/05/24 12/05/24 History dicyclomine 10 mg capsule 10 mg PO DAILY PRN Abdominal Pain 04/05/24 12/05/24 History diphenhydramine 25 1 tab PO HS 04/05/24 12/05/24 History mg-acetaminophen 500 mg tablet (Tylenol PM Extra Strength) duloxetine 60 mg capsule,delayed 60 mg PO BID 04/05/24 12/05/24 History release galcanezumab-gnlm 120 mg/mL 120 mg subcut Q30D 04/05/24 12/05/24 History subcutaneous pen injector (Emgality Pen) lidocaine 5 % topical patch 1 patch topical DAILY PRN Pain 04/05/24 12/05/24 History lubiprostone 24 mcg capsule 24 mcg PO BID 04/05/24 12/05/24 History (Amitiza) metoprolol succinate 50 mg 50 mg PO BID 04/05/24 12/05/24 History tablet,extended release 24 hr prucalopride 2 mg tablet 2 mg PO QAM 04/05/24 12/05/24 History (Motegrity) sitagliptin phosphate 50 mg tablet 50 mg PO QAM 04/05/24 12/05/24 History (Januvia) topiramate 100 mg tablet 100 mg PO HS 04/05/24 12/05/24 History valsartan 40 mg tablet 40 mg PO QAM 04/05/24 12/05/24 History cyanocobalamin (vitamin B-12) 1,000 mcg PO DAILY 11/11/24 12/05/24 History 1,000 mcg tablet (Vitamin B-12) gabapentin 600 mg tablet 600 mg PO BID 11/11/24 12/05/24 History multivitamin 1 tab PO DAILY 11/11/24 12/05/24 History ubrogepant 100 mg tablet (Ubrelvy) 100 mg PO UD PRN Migraine Headache 11/11/24 12/05/24 History Past Med/Surg History Problem List (Updated 12/05/24 @ 12:27 by Mike Jiang DO) Spondylolisthesis, lumbar region Sacroiliitis Encounter for pre-operative examination Medical History Adverse effect of anesthesia "With vitrectomy in recovery I had a hard time breathing but I think it was because I was drinking too fast and swallowed some air." Anxiety Chronic constipation Degenerative disc disease Depression Diverticular disease x2 hospitalizations - been a few years since any complications no recent flares Fibromyalgia GERD (gastroesophageal reflux disease) well controlled and stable Hearing loss, right totally deaf right ear Heart failure [facility] Cardiology Dr Mullen EF 65-69% per 06/2023 ECHO History of COVID-19 12/2023- no current symptoms History of hypertension well controlled w/medication per pt. 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 Sleep apnea BIPAP Spinal stenosis Type 2 diabetes mellitus oral Surgical History History of arthroscopy of left knee History of arthroscopy of right knee History of back surgery 05/02/24-right SI joint fusion, [facility] History of bilateral tubal ligation History of colonoscopy (2021) multiple with polypectomy History of dilatation and curettage History of esophagogastroduodenoscopy (EGD) esophageal polyps removed in 2021 (had two clips placed by Dr Hernandez) History of lumbar laminectomy for spinal cord decompression x2--hardware in place, most recent 2008 History of phacoemulsification of cataract of both eyes with intraocular lens implantation History of repair of left rotator cuff History of wisdom tooth extraction Hx of vitrectomy Right Status post right foot surgery plantar fasciitis Family History Grandfather (Paternal) Family history of diabetes mellitus Uncle Family history of esophageal cancer Grandmother (Paternal) Family history of stomach cancer Other No family history of adverse response to anesthesia Social History Smoking Status: Never smoker Second Hand Exposure: No; Do You Dip or Chew Tobacco: No; Tobacco Cessation Education Requested by Patient: No Hx Alcohol Use: No Hx Substance Use: No Preferred Language: Maltese Communication Ability: Effective Ceramic Artist Required: No Beliefs That Will Affect Care: Yazidi Yazidi Beliefs: baptist Current Living Situation: Spouse Other Information That Helps Us Care for You: No Feels Safe at Home: Yes Safety Concerns: Feels Safe At This Time Assistive Devices: BiPap, Glasses and Walker Physical Exam Physical Exam: Patient is alert and oriented Heart regular rhythm Lungs clear Results & Data Results & Data Vital Signs (Past 12 Hours) Vital Signs Temp Pulse Resp BP Pulse Ox O2 Del Method 12/05/24 10:09 36.8 C 71 20 151/82 H 96 Room Air
[2024-12-05] MEDS: ceFAZolin 330 MG/ML 1 GM VIAL ONE (13:50)
[2024-12-05] MEDS: BUPIVACAINE/EPINEPHRINE 0.25% 1:200,000 30 ML VIAL ONE (13:50)
[2024-12-05] MEDS ORDERED: HYDROmorphone INJ 2 MG/ML SYR/VIAL ONE (14:46)
[2024-12-05] MEDS ORDERED: GLYCOPYRROLATE 0.2 MG/ML VIAL ONE (14:59)
[2024-12-05] MEDS ORDERED: MAG SULFATE 50% 1GM/2ML VIAL IV ONE (15:00)
[2024-12-05] MEDS: FLOSEAL HEMOSTATIC MATRIX 10ML TOP ONE (15:01)
--- NOTE | 2024-12-05 15:22 | Operative Report ---
Post Operative Report Pre & Post Diagnosis Operation Date: 12/05/24 11:35 Pre-Op Diagnosis: #1 the spondylolisthesis, lumbar region #2 lumbar spondylosis with radiculopathy #3 lumbar disc condition with radiculopathy #4 morbid obesity Post-Op Diagnosis: Same I identified the patient and participated in the time-out.: Yes Procedure Operation Date: 12/05/24 11:35 Actual Procedures 1 removal of posterior instrumentation L4-L5. #2 exploration of fusion L4-5 #3 lumbar decompression with bilateral facetectomies and foraminotomies with excision of herniated disc L3-L4. #4 posterior spinal fusion L3-L4. #5 history of posterior instrumentation L3-L5 using camber. #6 interbody fusion L3-L4. #7 placement Spira 12 x 26 mm at L3-L4. #8 placement of locally harvested morselized autograft posterior gutters. #9 placement infuse collagen sponge, with Koros in the posterior lateral gutters and os design in the interbody space. #10 application of versa wrap over the exposed dura. Surgeon Mike Jiang, DO Civil Engineering Technician Paloma Wheatley Estimated Blood Loss 650 ( ) Findings See Below The patient is 5 foot 3 weighing over 113 g with a BMI in excess of 44. The patient's body habitus did contribute to significant technical difficulty with positioning exposure and the procedure itself. This at least 50% increased operative time. Recommending a modifier 22. Specimens None Indications This is a 74-year-old female well-known to me that presents with above-mentioned diagnosis after failed course of nonoperative care she is here for surgical intervention. Description of Procedure Patient was met with identified informed consent obtained. Patient was then taken to the operative suite underwent intubation placed in a prone position on the Tip table atop the David frame. All bony promises well-padded eyes inspected to ensure no external pressure placed upon them. This point lumbar spine was prepped and draped in normal sterile fashion. Sharp dissection with the assistance of Bovie cautery form down to and exposing the lamina transverse processes of L3 and instrumentation at L4-L5 bilaterally. And then proceeded to remove the hardware bilaterally explored the fusion mass noting it to be mature and intact. Then performed a complete laminectomy of L3 with bilateral medial facetectomies and foraminotomies addressing severe neural compression as well as addressing the disc herniation on the right. Pedicle screws then placed in L3-L 4-L5 bilaterally with assistance of fluoroscopy and the purposes puneet contoured and placed. By way of a transforaminal approach on the right complete discectomy of L3-L4 was performed endplates corrected to subcortical and bone and a 12 x 26 mm spiral cage filled with os design bone graft tapped in position. The rods were then compressed locked into final position bilaterally. Transverse processes of L3-L4 burred to subcortically bone. Infuse collagen sponge, with Koros and local autograft placed in posterior gutters. First wrap placed of the exposed dura. 15 round AMBER drain inserted. Incision was then closed with 1 Vicryl fascia 2-0 Vicryl subcutaneously and 4-0 Monocryl for final skin closure. Steri-Strips and sterile dressing placed. Patient waken taken to PACU in stable condition. Please note Paloma Wheatley was present at the entire procedure and on the patient positioning complex portion of the surgery and final skin closure. I attest to the content of the Intraoperative Record and any orders documented therein. Any exceptions are noted below.
[2024-12-05] MEDS: HYDROmorphone INJ 2 MG/ML SYR/VIAL IV PRN (15:48)
--- NOTE | 2024-12-05 16:03 | Fluoroscopy Report ---
INTRAOPERATIVE RADIOGRAPHS CLINICAL HISTORY: Lumbar spinal surgery Fluoro time: 69 seconds Ka,r: 14.29 mGy FINDINGS: 2 spot fluoroscopic views of the lumbar spine are presented. There has been discectomy at L 3-L4 and L4-L5 with laminectomy and posterior fusion at these levels. Interpedicular screws are in pl [place]. The orthopedic hardware appears intact. Postsurgical change is also seen in the left sacroiliac joint. IMPRESSION: Intraoperative images from lumbar spine surgery as above. Electronically signed by: Rubens Hoang M.D. 12/05/2024 4:01 PM
[2024-12-05] MEDS ORDERED: METOCLOPRAMIDE HCL INJ 5 MG/ML 2 ML VIAL IV PRN (16:43)
[2024-12-05] MEDS ORDERED: diphenhydrAMINE Capsule 25 MG CAP PO PRN (16:43)
[2024-12-05] MEDS ORDERED: ALUMINUM/MAGNESIUM SUSP 30 ML UDC PO PRN (16:43)
[2024-12-05] MEDS ORDERED: NALOXONE HCL 0.4 MG/1 ML VIAL/CARP IV PRN (16:43)
[2024-12-05] MEDS ORDERED: LORazepam 0.5 MG TAB PO PRN (16:43)
[2024-12-05] MEDS ORDERED: DO NOT ADMINISTER PNEUMOCOCCAL VACCINE PRN (16:43)
[2024-12-05] MEDS ORDERED: ACETAMINOPHEN 500 MG TAB PO PRN (16:43)
[2024-12-05] MEDS ORDERED: PROMETHAZINE 12.5 MG/50.5 ML BAG IV PRN (16:43)
[2024-12-05] MEDS ORDERED: ONDANSETRON INJ 2 MG/ML 2 ML VIAL IV PRN (16:43)
[2024-12-05] MEDS ORDERED: HYDROmorphone INJ 0.5 MG/0.5 ML SYR IV PRN (16:43)
[2024-12-05] MEDS ORDERED: ACETAMINOPHEN 1,000 MG/100 ML VIAL IV PRN (16:43)
[2024-12-05] MEDS ORDERED: FAMOTIDINE 20 MG TAB PO PRN (16:43)
[2024-12-05] MEDS ORDERED: DO NOT ADMINISTER FLU VACCINE PRN (16:43)
[2024-12-05] MEDS ORDERED: MAGNESIUM HYDROXIDE SUSP 30 ML UDC PO PRN (16:43)
[2024-12-05] MEDS ORDERED: ONDANSETRON 4 MG OD TAB PO PRN (16:43)
[2024-12-05] MEDS ORDERED: SOD PHOSPHATE/SOD BIPHOSPHATE ENEMA 132 ML BTL PR PRN (16:43)
--- NOTE | 2024-12-05 16:51 | Anesthesiology Progress Note ---
Date of Service December 05, 2024 Anesthesia Post Procedure Vital Signs Vital Signs: Temp Pulse Pulse Resp BP Pulse Ox O2 Del Method 12/05/24 16:30 36.4 C L 75 12 126/63 95 Nasal Cannula 12/05/24 16:20 76 12 132/69 96 Nasal Cannula 12/05/24 16:10 76 12 126/70 95 Nasal Cannula 12/05/24 16:00 82 12 122/66 99 Oxymask 12/05/24 15:50 85 14 134/84 95 Oxymask 12/05/24 15:40 79 14 137/78 95 Oxymask 12/05/24 15:33 36.5 C 77 12 142/80 H 99 Oxymask 12/05/24 10:09 36.8 C 71 20 151/82 H 96 Room Air O2 Flow Rate 12/05/24 16:30 3 12/05/24 16:20 3 12/05/24 16:10 3 12/05/24 16:00 6 12/05/24 15:50 6 12/05/24 15:40 6 12/05/24 15:33 6 12/05/24 10:09 Pain Intensity Bilateral Back: Pain Intensity: 7 Back: Pain Intensity: 5 Transfer of Care Handoff Completed per policy Notes Mental Status: alert / awake / arousable Patient Amnestic to Procedure: Yes Nausea / Vomiting: adequately controlled Pain: adequately controlled Airway Patency, RR, SpO2: stable & adequate BP & HR: stable & adequate and see Notes below Hydration State: stable & adequate Anesthetic Complications: no major complications apparent and Pt Satisfied with anesthetic care Notes: Intraop, patient had sinus pause for 3 seconds on traffic monitor specialist. This happened again moments later. TOBACCO SHAKER was able to capture on rhythm strip. This did not occur again intra or post op. Patient denies chest pain, sob post op. Has had holter monitor in past without notable findings. Recommend follow up with PCP for further testing. Will communicate with admitting team.
--- NOTE | 2024-12-05 17:05 | Hospitalist Consultation ---
Date of Consultation December 05, 2024 Assessment & Plan (1) Spondylolisthesis, lumbar region: (2) S/P spinal surgery: Patient is a 74-year-old female with past medical history significant for DMII, HLD, HTN, ZACKARY on CPAP, history of cardiomyopathy with reduced EF in July 2019 [EF = 65-69%; TTE 06/2023], long QT interval, trivial pericardial effusion, fibromyalgia on Cymbalta and gabapentin, senile osteoporosis, sacroiliitis, lichenoid dermatitis, IBS with constipation, GERD, stress incontinence, migrain es, depression and other problems listed below who is being seen in consultation for routine postoperative medical management after undergoing elective L4-L5 hardware removal and L4-L5/L3-L4 decompression + fusion performed by Dr. Jiang earlier today. Per primary service for pain control, wound care, anticoagulation and activities Continue incentive spirometry, PT/OT when appropriate as per primary service Monitor H/H for ABLA (EBL: 650mL; preop Hgb = 12.7 as of 11/21/24) and transfuse PRN (3) Sinus pause: 2 brief sinus pause events intraoperatively -D/w Dr. Bobby (anesthesiology) over the phone -1st event lasted ~3 seconds, 2nd event lasted ~3-5 seconds -No further events postoperatively & pt remains stable/asymptomatic -Discussed events w/ pt and family (pt's & daughter) at bedside Hold BB for now Check 12-lead EKG Urgent CBC, BMP, mag/phos, TSH/reflex T4 ordered Will update TTE Place on desk monitor for now --> will tx to med/tele Prior Lexiscan cardiac stress test in 03/2024 negative for ischemia, LVEF = 72% TTE, 06/2023: LVEF = 65-69%, normal LV wall motion, mildly increased LV wall thickness, grade I DD, trace MR (4) History of cardiomyopathy: F/w Dr. Mullen, [facility] cardiology Most recent TTE from 06/2023 outlined above; updated TTE pending (5) HTN (hypertension): Marginal postop hypotension --> hold valsartan for now Follow routine BP monitoring, resume valsartan as able (6) Type 2 diabetes mellitus: Hgb A1c 6% 2mo ago Hold home regimen; SSI protocol while inpt Follow BSG checks ACHS, appreciate glycemic pharm assistance (7) ZACKARY (obstructive sleep apnea): Continue CPAP HS Other Chronic Medical Conditions: HLD - Continue statin, ASA (as per primary service) Fibromyalgia - Continue gabapentin, Cymbalta GERD - Continue PPI Migraines - Continue Topamax DVT Prophylaxis: As per primary service Code Status: FULL CODE Disposition: Routine d/c planning as per primary service Thank you for this consultation. We will follow the patient with you during their hospital stay. You can reach a member of the [facility] Hospitalist Team 15/12 via [employer]chron[employer]. Patient seen in collaboration with Dr. Hunt. Please see addendum. I spent a total of 48 minutes coordinating, documenting, and providing care for this patient excluding time spent in the performance of separately billed services or time spent by another provider/QHP. This included personally reviewing all current laboratories and imaging studies, medical reconciliation, outpatient chart review and discussion with specialists. This chart was completed in part utilizing Speech Voice Recognition Software. Grammatical errors, random word insertions, pronoun errors, and incomplete sentences are an occasional consequence of this system due to software limitations, ambient noise, and hardware issues. Any formal questions or concerns about the content, text, or information contained within the body of this dictation should be directly addressed to the provider for clarification. Supervising Physician Co-Signing Physician Notes Attending Addendum: Case reviewed with the advanced practitioner. I have personally performed a history and physical examination on the patient. I have reviewed the advanced practitioner's documentation on the date of service referenced in note, and I agree with, and take responsibility for the plan of care. please refer to her notes for full details patient seen and examined, records reviewed by myself as well on exam, patient seen resting in bed, sitting up, comfortable family at bedside states she feels ok overall, pain well controlled denies active chest pain, shortness of breath, palpitations, dizziness does report intermittent episodes of sudden onset lightheaded at home no other symptoms VS noted and reviewed oriented x 3, not in distress, speaks in sentences with no effort nor accessory muscle use normal rate, regular rhythm, no murmurs clear breath sounds bilaterally non distended, soft, nontender trace bipedal edema, erythema, warmth no neuro deficits all labs, imaging noted and reviewed ASSESSMENT AND PLAN> s/p LUMBAR SPINE DECOMPRESSION FUSION HISTORY OF CARDIOMYOPATHY noted to have 2 episodes of sinus pauses 2-3sec intraoperatively patient reports intermittent episodes of lightheadedness at home transfer to Telemetry, hold Metoprolol for now, Echocardiogram ordered hold Valsartan for marginal BP, monitor closely will order Cardiology consult other diagnoses and plan of care as per advanced practitioner's notes I spent a total of 40 minutes coordinating, documenting, and providing care for this patient, excluding time spent in the performance of separately billed services or time spent by another provider/QHP. Quentin Hunt MD History of Present Illness Reason for Consultation: Routine postoperative medical management Requesting Physician: Mike Jiang DO Attending Physician: Mike Jiang DO History of Present Illness Patient is a 74-year-old female with past medical history significant for DMII, HLD, HTN, ZACKARY on CPAP, history of cardiomyopathy with reduced EF in July 2019 [EF = 65-69%; TTE 06/2023], long QT interval, trivial pericardial effusion, fibromyalgia on Cymbalta and gabapentin, senile osteoporosis, sacroiliitis, lichenoid dermatitis, IBS with constipation, GERD, stress incontinence, migraines, depression and other problems listed below who is being seen in consultation for routine postoperative medical management after undergoing elective L4-L5 hardware removal and L4-L5/L3-L4 decompression + fusion performed by Dr. Jiang earlier today. History obtained from the patient and associated chart review. Family present at bedside at the time of my evaluation, including the patient's and daughter. Patient endorses adequate pain control postoperatively. Mentions feeling tired after receiving pain medication but otherwise offers no additional complaints. Denies any SOB, chest pain, heart palpitations, abdominal pain or N/V. Discussed intraoperative sinus pause events with the patient and family at bedside - again, patient asymptomatic in this regard. Has Be catheter in place. Surgical site AMBER drain x 1 intact and draining serosanguineous output without difficulty. She is tolerating sips of water without any issue. BP 108/68, HR 74, RR 16 and O2 sat 98% on 2L NC at the time of my evaluation. No history of smoking or alcohol abuse. No history of recreational drug use. Uses CPAP HS given her history of ZACKARY. Allergies Allergy/AdvReac Type Severity Reaction Status Date / Time sucralfate Allergy Unknown Unknown Verified 12/05/24 17:38 tizanidine AdvReac Severe Hallucinati Verified 12/05/24 10:16 ng bupropion AdvReac Intermediate Anxious Verified 12/05/24 10:16 ergotamine AdvReac Intermediate Dry Heaving Verified 12/05/24 10:16 fremanezumab-vfrm AdvReac Intermediate Severe Verified 12/05/24 10:16 head pain for three days oxycodone AdvReac Intermediate See below Verified 12/05/24 10:16 tartrazine AdvReac Nausea Uncoded 12/05/24 17:38 Home Medications Medication Instructions Recorded Confirmed Type ergocalciferol (vitamin D2) 1,250 50,000 unit PO WK 10/13/18 12/05/24 History mcg (50,000 unit) capsule ketoconazole 2 % shampoo 2 % topical WK PRN scalp irritation 10/13/18 12/05/24 History omeprazole 20 mg tablet,delayed 20 mg PO BID 10/13/18 12/05/24 History release acetaminophen 500 mg tablet 500 - 1,000 mg PO UD 04/05/24 12/05/24 History aspirin 81 mg tablet,delayed 81 mg PO QAM 04/05/24 12/05/24 History release atorvastatin 40 mg tablet 40 mg PO QPM 04/05/24 12/05/24 History baclofen 10 mg tablet 10 mg PO HS 04/05/24 12/05/24 History celecoxib 200 mg capsule (Celebrex) 200 mg PO BID 04/05/24 12/05/24 History cholecalciferol (vitamin D3) 50 50 mcg PO BID 04/05/24 12/05/24 History mcg (2,000 unit) capsule (Vitamin D3) clobetasol 0.05 % topical cream 1 applic topical DAILY PRN Rash 04/05/24 12/05/24 History dicyclomine 10 mg capsule 10 mg PO DAILY PRN Abdominal Pain 04/05/24 12/05/24 History diphenhydramine 25 1 tab PO HS 04/05/24 12/05/24 History mg-acetaminophen 500 mg tablet (Tylenol PM Extra Strength) duloxetine 60 mg capsule,delayed 60 mg PO BID 04/05/24 12/05/24 History release galcanezumab-gnlm 120 mg/mL 120 mg subcut Q30D 04/05/24 12/05/24 History subcutaneous pen injector (Emgality Pen) lidocaine 5 % topical patch 1 patch topical DAILY PRN Pain 04/05/24 12/05/24 History lubiprostone 24 mcg capsule 24 mcg PO BID 04/05/24 12/05/24 History (Amitiza) metoprolol succinate 50 mg 50 mg PO BID 04/05/24 12/05/24 History tablet,extended release 24 hr prucalopride 2 mg tablet 2 mg PO QAM 04/05/24 12/05/24 History (Motegrity) sitagliptin phosphate 50 mg tablet 50 mg PO QAM 04/05/24 12/05/24 History (Januvia) topiramate 100 mg tablet 100 mg PO HS 04/05/24 12/05/24 History valsartan 40 mg tablet 40 mg PO QAM 04/05/24 12/05/24 History cyanocobalamin (vitamin B-12) 1,000 mcg PO DAILY 11/11/24 12/05/24 History 1,000 mcg tablet (Vitamin B-12) gabapentin 600 mg tablet 600 mg PO BID 11/11/24 12/05/24 History multivitamin 1 tab PO DAILY 11/11/24 12/05/24 History ubrogepant 100 mg tablet (Ubrelvy) 100 mg PO UD PRN Migraine Headache 11/11/24 12/05/24 History Patient History Medical History Heart failure S Cardiology Dr Mullen EF 65-69% per 06/2023 ECHO History of hypertension well controlled w/medication per pt. Hypertriglyceridemia hx History of COVID-19 12/2023- no current symptoms Adverse effect of anesthesia "With vitrectomy in recovery I had a hard time breathing but I think it was because I was drinking too fast and swallowed some air." Diverticular disease x2 hospitalizations - been a few years since any complications no recent flares Chronic constipation IBS (irritable bowel syndrome) Type 2 diabetes mellitus oral Hearing loss, right totally deaf right ear No blood products [facility] Degenerative disc disease Spinal stenosis Kidney stones hx passed on own GERD (gastroesophageal reflux disease) well controlled and stable Fibromyalgia Osteoarthritis Depression Anxiety 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 Migraine Sleep apnea BIPAP Surgical History History of back surgery 05/02/24-right SI joint fusion, [facility] Hx of vitrectomy Right History of dilatation and curettage History of bilateral tubal ligation Status post right foot surgery plantar fasciitis History of lumbar laminectomy for spinal cord decompression x2--hardware in place, most recent 2008 History of repair of left rotator cuff History of arthroscopy of right knee History of arthroscopy of left knee History of colonoscopy (2021) multiple with polypectomy History of esophagogastroduodenoscopy (EGD) esophageal polyps removed in 2021 (had two clips placed by Dr Hernandez) History of wisdom tooth extraction History of phacoemulsification of cataract of both eyes with intraocular lens implantation Family History Grandfather (Paternal) Family history of diabetes mellitus Uncle Family history of esophageal cancer Grandmother (Paternal) Family history of stomach cancer Other No family history of adverse response to anesthesia Social History Smoking Status: Never smoker Second Hand Exposure: No; Do You Dip or Chew Tobacco: No; Tobacco Cessation Education Requested by Patient: No Hx Alcohol Use: No Hx Substance Use: No Preferred Language: Icelandic Communication Ability: Effective Telesales Specialist Required: No Beliefs That Will Affect Care: [facility] Beliefs: congregational Current Living Situation: Spouse Other Information That Helps Us Care for You: No Feels Safe at Home: Yes Safety Concerns: Feels Safe At This Time Assistive Devices: BiPap, Glasses and Walker Review of Systems Review of Systems: At least ten systems reviewed and negative, except as noted in the HPI. Physical Exam Physical Exam: General: Elderly F, NAD, laying down in bed, appears tired postoperatively however remains A&Ox3 w/ conversation HEENT: Normocephalic, atraumatic, external ear and nose normal, oropharynx slightly dry Respiratory: Normal respiratory effort, lungs clear to auscultation bilaterally, O2 sat 98% on 2L NC Cardiovascular: Regular rate/rhythm, normal peripheral pulses, no BLE edema Abdomen/GI: Normal bowel sounds, soft, nontender to palpation in all quadrants : Be catheter intact and draining clear/yellow urine w/o issue Extremities/MSK: No cyanosis or clubbing, BLE SCDs/TEDs in place, surgical on back dressing w/ minimal seepage, AMBER drain x 1 intact and draining serosanguineous output Neurologic: No overt focal deficits, CN's II-XI not formally tested but appear grossly intact bilaterally Results & Data Results & Data Vital Signs (Past 12 Hours) Vital Signs Temp Pulse Pulse Resp BP Pulse Ox O2 Del Method 12/05/24 16:30 36.4 C L 75 12 126/63 95 Nasal Cannula 12/05/24 16:20 76 12 132/69 96 Nasal Cannula 12/05/24 16:10 76 12 126/70 95 Nasal Cannula 12/05/24 16:00 82 12 122/66 99 Oxymask 12/05/24 15:50 85 14 134/84 95 Oxymask 12/05/24 15:40 79 14 137/78 95 Oxymask 12/05/24 15:33 36.5 C 77 12 142/80 H 99 Oxymask 12/05/24 10:09 36.8 C 71 20 151/82 H 96 Room Air O2 Flow Rate 12/05/24 16:30 3 12/05/24 16:20 3 12/05/24 16:10 3 12/05/24 16:00 6 12/05/24 15:50 6 12/05/24 15:40 6 12/05/24 15:33 6 12/05/24 10:09 Diagnostic Findings Lumbar Spine X-Ray 12/05/24 11:35 INTRAOPERATIVE RADIOGRAPHS CLINICAL HISTORY: Lumbar spinal surgery Fluoro time: 69 seconds Ka,r: 14.29 mGy FINDINGS: 2 spot fluoroscopic views of the lumbar spine are presented. There has been discectomy at L3-L4 and L4-L5 with laminectomy and posterior fusion at these levels. Interpedicular screws are in place. The orthopedic hardware appears intact. Postsurgical change is also seen in the left sacroiliac joint. IMPRESSION: Intraoperative images from lumbar spine surgery as above. Electronically signed by: Rubens Hoang M.D. 12/05/2024 4:01 PM (5) HTN (hypertension) Hypertension type: unspecified Qualified Code(s): I10 - Essential (primary) hypertension (6) Type 2 diabetes mellitus Diabetes mellitus complication status: without complication Diabetes mellitus prison insulin use: unspecified director long term care insulin use status Qualified Code(s): E11.9 - Type 2 diabetes mellitus without complications
[2024-12-05] MEDS: HYDROmorphone INJ 1 MG/ML SYRINGE IV PRN (17:20)
[2024-12-05] MEDS ORDERED: GLUCOSE 40% GEL 15 GM TUBE PO PRN (18:13)
[2024-12-05] MEDS ORDERED: GLUCAGON FOR INJ 1 MG VIAL SQ PRN (18:13)
[2024-12-05] MEDS ORDERED: CARBOHYDRATES FOR HYPOGLYCEMIA PO PRN (18:13)
[2024-12-05] MEDS ORDERED: PHARMACY GLYCEMIC MGMT CONSULT PRN (18:13)
[2024-12-05] MEDS ORDERED: GLUCOSE 10 TAB/TUBE PO PRN (18:13)
[2024-12-05] MEDS ORDERED: DEXTROSE 50% 50 ML SYRINGE IV PRN (18:13)
[2024-12-05] MEDS: INSULIN ASPART PER UNIT CHARGE SC SCH (18:41)
[2024-12-05 19:06] LABS: Hematocrit (blood only) 39.4 % (37.0-47.0); Hemoglobin 12.3 g/dl (12.0-16.0); Immature Granulocytes # (auto) 0.08 K/uL (0.01-0.20); Immature Granulocytes % (auto) 0.8 %; Mean Corpuscular Hemoglobin 26.9 pg (25.0-34.0); Mean Corpuscular Volume 86.0 fL (80.0-100.0); Platelet Count 138 K/uL (130-400); RDW Standard Deviation 43.8 fL (36.4-46.3); Red Blood Count 4.58 M/uL (4.20-5.40); White Blood Count 9.95 K/ul (4.8-10.8)
[2024-12-05 19:21] LABS: Anion Gap 6.0 (3-11); Blood Urea Nitrogen 13.0 mg/dl (6-23); Calcium 8.7 mg/dl (8.6-10.3); Carbon Dioxide 25.0 mmol/L (21-32); Chloride 108.0 mmol/L (98-107); Creatinine Clr Calc Pharmacy 81.2 ml/min; Glucose 138.0 mg/dl (70-99(Fasting)); Magnesium 2.5 mg/dl (1.7-2.4); Potassium 4.0 mmol/L (3.5-5.1); Sodium 139.0 mmol/L (136-145)
[2024-12-05 19:35] LABS: Thyroid Stimulating Hormone 1.776 uIu/ml (0.300-4.500)
[2024-12-05] MEDS: HYDROCODONE/ACETAMOPHEN 5/325MG TAB PO PRN (19:42)
[2024-12-05] MEDS ORDERED: METOPROLOL SUCC 50MG EXT REL TAB PO SCH (21:00)
[2024-12-05] MEDS: CHOLECALCIFEROL 25 MCG (1000 UNITS) TAB PO SCH (21:55)
[2024-12-05] MEDS: DOCUSATE SODIUM/SENNA 50/8.6MG TAB PO SCH (21:55)
[2024-12-05] MEDS: GABAPENTIN 600 MG TAB PO SCH (21:55)
[2024-12-05] MEDS: ATORVASTATIN 40 MG TAB PO SCH (21:55)
[2024-12-05] MEDS: BACLOFEN 10 MG TAB PO SCH (21:55)
[2024-12-05] MEDS: TOPIRAMATE 100 MG TAB PO SCH (21:56)
[2024-12-06] MEDS: POLYETHYLENE (MIRALAX) 17 GM PACK PO SCH (05:49)
[2024-12-06 07:11] LABS: Anion Gap 8.0 (3-11); Calcium 8.1 mg/dl (8.6-10.3); Carbon Dioxide 22.0 mmol/L (21-32); Chloride 108.0 mmol/L (98-107); Magnesium 2.4 mg/dl (1.7-2.4); Potassium 4.0 mmol/L (3.5-5.1); Sodium 138.0 mmol/L (136-145)
[2024-12-06 07:17] LABS: Blood Urea Nitrogen 13.0 mg/dl (6-23); Creatinine Clr Calc Pharmacy 83.4 ml/min; Glucose 110.0 mg/dl (70-99(Fasting))
[2024-12-06] MEDS: PERFLUTREN LIPID MICROSPHERE (DEFINITY) IV ONE (07:20)
[2024-12-06 07:33] LABS: Hematocrit (blood only) 36.3 % (37.0-47.0); Hemoglobin 11.3 g/dl (12.0-16.0); Immature Granulocytes # (auto) 0.03 K/uL (0.01-0.20); Immature Granulocytes % (auto) 0.3 %; Mean Corpuscular Hemoglobin 27.5 pg (25.0-34.0); Mean Corpuscular Volume 88.3 fL (80.0-100.0); Platelet Count 126 K/uL (130-400); RDW Standard Deviation 45.1 fL (36.4-46.3); Red Blood Count 4.11 M/uL (4.20-5.40); White Blood Count 9.85 K/ul (4.8-10.8)
[2024-12-06] MEDS: ASPIRIN 81 MG ECTAB PO SCH (08:38)
[2024-12-06] MEDS: CYANOCOBALAMIN (B-12) 500 MCG TABLET PO SCH (08:38)
--- NOTE | 2024-12-06 09:10 | Cardiology Consultation ---
Date of Consultation December 06, 2024 Assessment & Plan (1) Sinus pause: (2) HTN (hypertension): (3) History of cardiomyopathy: Plan Patient with a history of non ischemic cardiomyopathy (LVEF improved with GDMT) and hypertension underwent spinal surgery yesterday and during procedure, apparently had 2 sinus pauses lasting approx 3 seconds. In the post op setting/recovery patient was asymptomatic and no further arrhythmias. Metoprolol succinate held post op (Home dose was 50 mg BID) Valsartan also held post op due to hypotension Telemetry reviewed overnight and this morning. No bradycardia, pauses, or high degree AV block. HR 60-80 bmp Resume lower dose metoprolol succinate 50 mg daily. 2 week outpatient hide examiner to be ordered. Hypertension -resume metoprolol 50 mg daily (lower dose) -continue to hold valsartan for now History of non ischemic cardiomyopathy - echo this morning with preserved LVEF. Continue telemetry today with resuming lower dose metoprolol. Case discussed with Dr. Shepard I spent a total of 60 minutes on the date of service in preparation, delivery, and documentation of the care provided to this patient, excluding any time spent in the performance of separately billed services. Lissette Nicholson PA-C Department of Cardiology, [facility] This chart was completed in part utilizing Speech Voice Recognition Software. Grammatical errors, random word insertions, pronoun errors, and incomplete sentences are an occasional consequence of this system due to software limitations, ambient noise, and hardware issues. Any formal questions or concerns about the content, text, or information contained within the body of this dictation should be directly addressed to the provider for clarification. Supervising Physician Co-Signing Physician Notes I have personally performed a history and physical examination on the patient. I have reviewed the advance practitioner's documentation, and I agree with, and take responsibility for the plan of care. 74-year-old female presents for spinal surgery. 2 to 3-second sinus pauses present reported by anesthesiology during general anesthesia and operative procedure. Patient treated with high-dose Toprol-XL, 100 mg daily due to history of nonischemic cardiomyopathy. She reports occasional lightheadedness and dizziness over the past few months. Denies overt syncope. Borderline hypotensive since surgery. Telemetry reveals sinus rhythm in the 60s up to 80s. No significant bradycardia, pauses, heart block recorded. ECG demonstrates normal sinus rhythm with evidence of left ventricular hypertrophy, ST and T wave abnormality as well as prolonged QT. T wave inversions are mildly more pronounced when compared to most recent ECG. Nonspecific T wave abnormality noted on prior ECGs. Her echocardiogram performed this a.m. demonstrates preserved LV systolic function without regional wall motion abnormality. Recent nuclear stress test performed 03/2024 negative for inducible ischemia. Recommendations: * Reduce Toprol-XL to 50 mg daily. * Monitor telemetry. * 14-day outpatient ZIO monitor. * Valsartan will remain on hold, however, consider restarting during hospitalization. Govind Shepard DO, [facility] History of Present Illness Reason for Consultation: Sinus pauses (intraoperatively) Requesting Physician: Sarai Henry Attending Physician: Dr. Shepard History of Present Illness Patient is a 74 year old female, known to Sarai Braga (Dr. Mullen) who underwent spinal surgery yesterday. During procedure, anesthesia apparently noted 2 sinus pauses during the case. Per hospitalist notes, who had discussed with Dr. Bobby (anesthesiology) over the phone -1st event lasted ~3 seconds, 2nd event lasted ~3-5 seconds. EKG after surgery demonstrating NSR with T wave abnormality in anterior leads, but this is stable per review of outpatient EKG's over the last few years. Metoprolol held after surgery. She typically takes metoprolol succinate 50 mg BID. Patient reports episodes of dizziness over the last few months. Occurs randomly and feels as if she is going to "pass out". She reported this to several of her outpatient physicians and her BP was low so her valsartan dose was lowered. She is unsure if this helped her dizziness. Since admission and overnight/this morning she denies recent dizziness or lightheadedness. No chest pain or SOB. Pain is tolerable. She is starting to ambulate in the room. Voices no acute complaints but she is concerned with the lower HR readings and her dizziness in the last few months. 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 Allergies Allergy/AdvReac Type Severity Reaction Status Date / Time sucralfate Allergy Unknown Unknown Verified 12/05/24 17:38 tizanidine AdvReac Severe Hallucinati Verified 12/05/24 10:16 ng bupropion AdvReac Intermediate Anxious Verified 12/05/24 10:16 ergotamine AdvReac Intermediate Dry Heaving Verified 12/05/24 10:16 fremanezumab-vfrm AdvReac Intermediate Severe Verified 12/05/24 10:16 head pain for three days oxycodone AdvReac Intermediate See below Verified 12/05/24 10:16 tartrazine AdvReac Nausea Uncoded 12/05/24 17:38 Home Medications Medication Instructions Recorded Confirmed Type ergocalciferol (vitamin D2) 1,250 50,000 unit PO WK 10/13/18 12/05/24 History mcg (50,000 unit) capsule ketoconazole 2 % shampoo 2 % topical WK PRN scalp irritation 10/13/18 12/05/24 History omeprazole 20 mg tablet,delayed 20 mg PO BID 10/13/18 12/05/24 History release acetaminophen 500 mg tablet 500 - 1,000 mg PO UD 04/05/24 12/05/24 History aspirin 81 mg tablet,delayed 81 mg PO QAM 04/05/24 12/05/24 History release atorvastatin 40 mg tablet 40 mg PO QPM 04/05/24 12/05/24 History baclofen 10 mg tablet 10 mg PO HS 04/05/24 12/05/24 History celecoxib 200 mg capsule (Celebrex) 200 mg PO BID 04/05/24 12/05/24 History cholecalciferol (vitamin D3) 50 50 mcg PO BID 04/05/24 12/05/24 History mcg (2,000 unit) capsule (Vitamin D3) clobetasol 0.05 % topical cream 1 applic topical DAILY PRN Rash 04/05/24 12/05/24 History dicyclomine 10 mg capsule 10 mg PO DAILY PRN Abdominal Pain 04/05/24 12/05/24 History diphenhydramine 25 1 tab PO HS 04/05/24 12/05/24 History mg-acetaminophen 500 mg tablet (Tylenol PM Extra Strength) duloxetine 60 mg capsule,delayed 60 mg PO BID 04/05/24 12/05/24 History release galcanezumab-gnlm 120 mg/mL 120 mg subcut Q30D 04/05/24 12/05/24 History subcutaneous pen injector (Emgality Pen) lidocaine 5 % topical patch 1 patch topical DAILY PRN Pain 04/05/24 12/05/24 History lubiprostone 24 mcg capsule 24 mcg PO BID 04/05/24 12/05/24 History (Amitiza) metoprolol succinate 50 mg 50 mg PO BID 04/05/24 12/05/24 History tablet,extended release 24 hr prucalopride 2 mg tablet 2 mg PO QAM 04/05/24 12/05/24 History (Motegrity) sitagliptin phosphate 50 mg tablet 50 mg PO QAM 04/05/24 12/05/24 History (Januvia) topiramate 100 mg tablet 100 mg PO HS 04/05/24 12/05/24 History valsartan 40 mg tablet 40 mg PO QAM 04/05/24 12/05/24 History cyanocobalamin (vitamin B-12) 1,000 mcg PO DAILY 11/11/24 12/05/24 History 1,000 mcg tablet (Vitamin B-12) gabapentin 600 mg tablet 600 mg PO BID 11/11/24 12/05/24 History multivitamin 1 tab PO DAILY 11/11/24 12/05/24 History ubrogepant 100 mg tablet (Ubrelvy) 100 mg PO UD PRN Migraine Headache 11/11/24 12/05/24 History hydrocodone 5 mg-acetaminophen 325 1 tab PO Q6H PRN pain #30 tabs 12/06/24 Rx mg tablet tramadol 50 mg tablet 50 mg PO Q6H PRN pain, moderate 12/06/24 Rx #30 tabs Patient History Medical History Heart failure S Cardiology Dr Mullen EF 65-69% per 06/2023 ECHO History of hypertension well controlled w/medication per pt. Hypertriglyceridemia hx History of COVID-19 12/2023- no current symptoms Adverse effect of anesthesia "With vitrectomy in recovery I had a hard time breathing but I think it was because I was drinking too fast and swallowed some air." Diverticular disease x2 hospitalizations - been a few years since any complications no recent flares Chronic constipation IBS (irritable bowel syndrome) Type 2 diabetes mellitus oral Hearing loss, right totally deaf right ear No blood products Zoroastrianism Degenerative disc disease Spinal stenosis Kidney stones hx passed on own GERD (gastroesophageal reflux disease) well controlled and stable Fibromyalgia Osteoarthritis Depression Anxiety 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 Migraine Sleep apnea BIPAP Surgical History History of back surgery 05/02/24-right SI joint fusion, [facility] Hx of vitrectomy Right History of dilatation and curettage History of bilateral tubal ligation Status post right foot surgery plantar fasciitis History of lumbar laminectomy for spinal cord decompression x2--hardware in place, most recent 2008 History of repair of left rotator cuff History of arthroscopy of right knee History of arthroscopy of left knee History of colonoscopy (2021) multiple with polypectomy History of esophagogastroduodenoscopy (EGD) esophageal polyps removed in 2021 (had two clips placed by Dr Hernandez) History of wisdom tooth extraction History of phacoemulsification of cataract of both eyes with intraocular lens implantation Family History Grandfather (Paternal) Family history of diabetes mellitus Uncle Family history of esophageal cancer Grandmother (Paternal) Family history of stomach cancer Other No family history of adverse response to anesthesia Social History Smoking Status: Never smoker Second Hand Exposure: No; Do You Dip or Chew Tobacco: No; Tobacco Cessation Education Requested by Patient: No Hx Alcohol Use: No Hx Substance Use: No Preferred Language: German Communication Ability: Effective Selling Underwriter Required: No Beliefs That Will Affect Care: Orthodox Orthodox Beliefs: hoahaoism Current Living Situation: Spouse Other Information That Helps Us Care for You: No Feels Safe at Home: Yes Safety Concerns: Feels Safe At This Time Assistive Devices: BiPap, Glasses and Walker Review of Systems 2 Review of Systems: All systems reviewed & are unremarkable except as noted in HPI & below Physical Exam Constitutional: WD/WN, vitals as above well developed and + obese; no acute distress Neck: trachea midline, no thyromegaly Respiratory: normal respiratory effort, lungs clear to auscultation Cardiovascular: Rate/Rhythm: regular rate and regular rhythm Heart Sounds: normal S1 and normal S2; no murmur Vessels: no JVD Extremities: no edema Gastrointestinal (Abdomen): normal bowel sounds, soft, nontender, no hepatosplenomegaly Musculoskeletal: no cyanosis or clubbing, extremities motor strength 5/5 Neurologic: PERRL, EOMI, accommodation nl, no face palsy, no dysarthria Results & Data Vital Signs (Past 12 Hours) Vital Signs Temp Pulse Pulse Resp BP Pulse Ox O2 Del Method 12/06/24 07:40 36.6 C 80 20 106/67 95 Nasal Cannula 12/06/24 06:52 99 H 12/06/24 03:26 36.5 C 72 16 96/60 L 93 Nasal Cannula 12/05/24 22:41 36.6 C 86 18 117/75 95 Nasal Cannula 12/05/24 21:48 80 O2 Flow Rate 12/06/24 07:40 1 12/06/24 06:52 12/06/24 03:26 1 12/05/24 22:41 1 12/05/24 21:48 Laboratory Results CBC 12/05/24 12/06/24 Range/Units 17:57 06:33 WBC 9.95 9.85 (4.8-10.8) K/ul RBC 4.58 4.11 L (4.20-5.40) M/uL Hgb 12.3 11.3 L (12.0-16.0) g/dl Hct 39.4 36.3 L (37.0-47.0) % Plt Count 138 126 L (130-400) K/uL Neut # (Auto) 8.57 H 7.23 H (1.40-6.50) K/uL Lymph # (Auto) 1.06 L 1.74 (1.20-3.40) K/uL Faulk # (Auto) 0.22 0.82 H (0.11-0.59) K/uL Eos # (Auto) 0.00 0.01 (0.00-0.50) K/uL Baso # (Auto) 0.02 0.02 (0.00-0.20) K/uL Comprehensive Metabolic Panel 12/05/24 12/06/24 Range/Units 17:57 06:33 Sodium 139 138 (136-145) mmol/L Potassium 4.0 4.0 (3.5-5.1) mmol/L Chloride 108 H 108 H (98-107) mmol/L Carbon Dioxide 25 22 (21-32) mmol/L BUN 13 13 (6-23) mg/dl Creatinine 0.76 0.74 (0.6-1.2) mg/dl Glucose 138 H 110 H (70-99(Fasting)) mg/dl Calcium 8.7 8.1 L (8.6-10.3) mg/dl Intake and Output 12/05/24 12/06/24 12/06/24 22:59 06:59 14:59 Intake Total 2500 / 2650 150 / 2650 Output Total 2265 / 2740 475 / 2740 Balance 235 / -90 -325 / -90 Intake: IV Perioperative 1900 / 1900 Oral 600 / 750 150 / 750 Output: Estimated Blood Loss 650 / 650 Urine Amount (Catheter) 1300 / 1650 350 / 1650 Be/Indwelling 1300 / 1650 350 / 1650 Drain Output 315 / 440 125 / 440 Back AMBER 315 / 440 125 / 440 Diagnostic Findings Telemetry reviewed: NSR in the 60-80's. No pauses or bradycardic events. (strips not available from her surgery yesterday) EKG reviewed in the post op period, 12/05/24: NSR T wave abnormality in anterior leads When compared with outpatient EKG's, this is stable Echo reviewed from 12/06/24: Left ventricular ejection fraction 65 to 70%. Mild concentric LVH. Borderline RV enlargement. Grade 1 diastolic dysfunction. No significant valvular pathology. Review of outpatient data: Echo 06/2023 The qualitative LV ejection fraction is 65-69% (normal). The left ventricular wall motion is normal. The left ventricular diastolic function is mildly abnormal (grade I). Trace mitral regurgitation Indeterminate IVC size and collapsability. Right atrial pressure estimated at 8 mmHg. Nuclear stress test 03/2024: Lexiscan nuclear cardiac stress test negative for ischemia. The LV ejection fraction is calculated at 72%. Gated SPECT images reveals normal myocardial thickening and wall motion. Decreased counts noted in the apex that improved with stress suggestive of attenuation artifact. Medications Administered Current Inpatient Medications Acetaminophen (Acetaminophen 500 Mg Tab) 1,000 mg PO Q8H PRN PRN Reason: MILD Pain (1,2,3) & Pre PT Stop: 01/04/25 16:42 Hydrocodone Bitart/Acetaminophen (Hydrocodone/Acetamophen 5/325mg Tab) 1 - 2 tab PO Q4H PRN PRN Reason: MOD/SEV Pain & Pre PT Stop: 12/19/24 16:42 Last Admin: 12/05/24 19:42 Dose: 2 tab Al Hydrox/Mg Hydrox/Simethicone (Aluminum/Magnesium Susp 30 Ml Udc) 30 ml PO Q6H PRN PRN Reason: Dyspepsia Stop: 01/04/25 16:42 Aspirin (Aspirin 81 Mg Ectab) 81 mg PO QAM [facility] Stop: 01/05/25 08:59 Last Admin: 12/06/24 08:38 Dose: 81 mg Atorvastatin Calcium (Atorvastatin 40 Mg Tab) 40 mg PO QPM ALEX[facility] Stop: 01/04/25 20:59 Last Admin: 12/05/24 21:55 Dose: 40 mg Baclofen (Baclofen 10 Mg Tab) 10 mg PO HS ALEXIS Stop: 01/04/25 20:59 Last Admin: 12/05/24 21:55 Dose: 10 mg Bisacodyl (Bisacodyl 10 Mg Supp) 10 mg WA DAILY PRN PRN Reason: Constipation Stop: 01/04/25 16:42 Cyanocobalamin (Cyanocobalamin (B-12) 500 Mcg Tablet) 1,000 mcg PO DAILY ALEXIS Stop: 01/05/25 08:59 Last Admin: 12/06/24 08:38 Dose: 1,000 mcg Dextrose (Dextrose 50% 50 Ml Syringe) 25 - 50 ml IV UD PRN; Protocol PRN Reason: Hypoglycemia Protocol Stop: 01/04/25 18:12 Diphenhydramine HCl (Diphenhydramine Capsule 25 Mg Cap) 25 mg PO Q6H PRN PRN Reason: Allergic Rhinitis/Insomnia Stop: 01/04/25 16:42 Duloxetine HCl (Duloxetine Hcl 60 Mg Cap) 60 mg PO BID [facility] Stop: 01/04/25 20:59 Last Admin: 12/06/24 08:38 Dose: 60 mg Ergocalciferol (Ergocalciferol 1250 Mcg (50,000 Units) Cap) 1,250 mcg PO Fr@0900 A[facility] Stop: 01/08/25 08:59 Famotidine (Famotidine 20 Mg Tab) 20 mg PO Q12H PRN PRN Reason: Dyspepsia Stop: 01/04/25 16:42 Gabapentin (Gabapentin 600 Mg Tab) 600 mg PO BID [facility] Stop: 01/04/25 20:59 Last Admin: 12/06/24 08:40 Dose: 600 mg Glucagon (Glucagon For Inj 1 Mg Vial) 1 mg SQ UD PRN; Protocol PRN Reason: Hypoglycemia Protocol Stop: 01/04/25 18:12 Glucose (Glucose 40% Gel 15 Gm Tube) 15 - 30 gm PO UD PRN; Protocol PRN Reason: Hypoglycemia Protocol Stop: 01/04/25 18:12 Glucose (Glucose 10 Tab/Tube) 4 - 8 tab PO UD PRN; Protocol PRN Reason: Hypoglycemia Protocol Stop: 01/04/25 18:12 Hydromorphone HCl (Hydromorphone Inj 0.5 Mg/0.5 Ml Syr) 0.5 mg IV Q3H PRN PRN Reason: MODERATE Pain(4,5,6)/Pre PT Stop: 12/19/24 16:42 Hydromorphone HCl (Hydromorphone Inj 1 Mg/Ml Syringe) 1 mg IV Q3H PRN PRN Reason: SEVERE Pain (7,8,9,10) Stop: 12/19/24 16:42 Last Admin: 12/06/24 05:54 Dose: 1 mg Hydroxyzine HCl (Hydroxyzine Hcl 25 Mg Tab) 25 mg PO Q8H PRN PRN Reason: Anxiety Stop: 01/04/25 16:42 Acetaminophen (Ofirmev) 1,000 mg in 100 mls @ 400 mls/hr IV Q8H PRN PRN Reason: MILD Pain (1,2,3) & Pre PT Stop: 12/06/24 16:43 Promethazine HCl (Phenergan) 12.5 mg in 50.5 mls @ 202 mls/hr IV Q6H PRN PRN Reason: Nausea And Vomiting Stop: 01/04/25 16:42 Dexamethasone 6 mg/ Syringe 1.5 mls @ 1 mls/min IV DAILY [facility] Stop: 12/08/24 09:02 Influenza Virus Vaccine Quadrival (Do Not Administer Flu Vaccine) 1 each N/A PRN PRN PRN Reason: Notification Stop: 01/04/25 16:42 Insulin Aspart (Insulin Aspart Per Unit Charge) 0 units SC [facility] Stop: 01/04/25 18:29 Last Admin: 12/06/24 09:15 Dose: 3 units Lorazepam (Lorazepam 0.5 Mg Tab) 0.5 mg PO Q8H PRN PRN Reason: Sedation/Anxiety Stop: 01/04/25 16:42 Lorazepam (Lorazepam 2 Mg/1 Ml Vial) 0.5 mg IV Q8H PRN PRN Reason: Sedation/Anxiety Stop: 01/04/25 16:42 Magnesium Hydroxide (Magnesium Hydroxide Susp 30 Ml Udc) 30 ml PO Q24H PRN PRN Reason: Constipation Stop: 01/04/25 16:42 Metoclopramide HCl (Metoclopramide Hcl Inj 5 Mg/Ml 2 Ml Vial) 10 mg IV Q6H PRN PRN Reason: Nausea &/or Vomiting Stop: 01/04/25 16:42 Metoprolol Succinate (Metoprolol Succ 50mg Ext Rel Tab) 50 mg PO BID [facility] Stop: 01/04/25 20:59 Miscellaneous (Ubrelvy: Order Awaiting Action) 1 each N/A QS [facility] Stop: 01/05/25 00:00 Last Admin: 12/06/24 08:07 Dose: Not Given Miscellaneous (Carbohydrates For Hypoglycemia ) 15 - 30 gm PO UD PRN PRN Reason: Hypoglycemia Protocol Stop: 01/04/25 18:12 Miscellaneous Information (Pharmacy Glycemic Mgmt Consult) 1 each N/A UD PRN PRN Reason: Consult Stop: 01/04/25 18:12 Naloxone HCl (Naloxone Hcl 0.4 Mg/1 Ml Vial/Carp) 0.1 mg IV Q5M PRN PRN Reason: Oversedation/Resp depression Stop: 01/04/25 16:42 Ondansetron HCl (Ondansetron Inj 2 Mg/Ml 2 Ml Vial) 4 mg IV Q6H PRN PRN Reason: Nausea &/or Vomiting Stop: 01/04/25 16:42 Ondansetron HCl (Ondansetron 4 Mg Od Tab) 4 mg PO Q6H PRN PRN Reason: Nausea Stop: 01/04/25 16:42 Pantoprazole Sodium (Pantoprazole 40 Mg Tab) 40 mg PO BID [facility]; Protocol Stop: 01/04/25 20:59 Last Admin: 12/06/24 08:40 Dose: 40 mg Pneumococcal Polyvalent Vaccine (Do Not Administer Pneumococcal Vaccine) 1 each N/A PRN PRN PRN Reason: Notification Stop: 01/04/25 16:42 Polyethylene Glycol (Polyethylene (Miralax) 17 Gm Pack) 17 gm PO Q6 [facility] Stop: 01/05/25 05:59 Last Admin: 12/06/24 05:49 Dose: 17 gm Senna/Docusate Sodium (Docusate Sodium/Senna 50/8.6mg Tab) 2 tab PO HS [facility] Stop: 01/04/25 20:59 Last Admin: 12/05/24 21:55 Dose: 2 tab Sodium Biphosphate/Sodium Phosphate (Sod Phosphate/Sod Biphosphate Enema 132 Ml Btl) 132 ml WA ONE PRN PRN Reason: Constipation Stop: 01/04/25 16:42 Topiramate (Topiramate 100 Mg Tab) 100 mg PO HS [facility] Stop: 01/04/25 20:59 Last Admin: 12/05/24 21:56 Dose: 100 mg Tramadol HCl (Tramadol Hcl 50 Mg Tablet) 50 - 100 mg PO Q4H PRN PRN Reason: MOD/SEV Pain & Pre PT Stop: 01/04/25 16:42 Valsartan (Valsartan 80 Mg Tab) 40 mg PO QAM [facility] Stop: 01/05/25 08:59 Vitamin D (Cholecalciferol 25 Mcg (1000 Units) Tab) 50 mcg PO BID [facility] Stop: 01/04/25 20:59 Last Admin: 12/06/24 08:39 Dose: 50 mcg PG Care Time/CCT Total # of Minutes Spent Total Time Spent with Patient: Total time spent is greater than 50% in coordination of care (as documented) at patient's floor/unit and/or counseling patient: 60 Coding Level of Care Code 26495 INT INP/OBS CARE 3/75MIN Diagnoses Sinus pause I45.5 Hypertension, unspecified type I10 Hypertension type: unspecified History of cardiomyopathy Z86.79 (2) HTN (hypertension) Hypertension type: unspecified Qualified Code(s): I10 - Essential (primary) hypertension
[2024-12-06] MEDS: dexAMETHasone 6 MG in SYRINGE 0 ML IV SCH (10:23)
--- NOTE | 2024-12-06 11:22 | Electrocardiogram Report ---
Test Reason : Blood Pressure : */* mmHG Vent. Rate : 75 BPM Atrial Rate : 75 BPM P-R Int : 182 ms QRS Dur : 92 ms QT Int : 448 ms P-R-T Axes : 20 -18 -2 degrees QTcB Int : 500 ms Normal sinus rhythm Minimal voltage criteria for LVH, may be normal variant Prolonged QT Abnormal ECG Confirmed by Paxton Acharya ([id number]) on 12/06/2024 11:22:19 AM Referred By: Mike Jiang Confirmed By: Paxton Acharya
[2024-12-06] MEDS ORDERED: ALUMINUM/MAGNESIUM/SIMETH (MAALOX MAX) 30 ML UDC PO PRN (11:44)
--- NOTE | 2024-12-06 13:00 | Pharmacy Report ---
Pharmacy Glycemic Short Note 2 - Date of Service December 06, 2024 - Glycemic Short BSG Results (Last 24 hours): 12/05/24 12/05/24 12/05/24 15:36 17:57 21:50 Glucose 138 H POC Glucose 118 H 138 H 12/06/24 12/06/24 12/06/24 06:33 08:07 12:18 Glucose 110 H POC Glucose 111 H 140 H OUTPATIENT ANTIDIABETIC REGIMEN: * Januvia 50mg po daily HbA1c: 5.9% on 11/21/24 ASSESSMENT: * PB is a 74 year old female who was admitted yesterday for spinal decompression and fusion. Pharmacy was consulted for glycemic management postop. * Preop BSG was 100mg/dL and postop on blood draw was 138mg/dL. She did receive 4mg iv dexamethasone preop. A weight based bolus insulin regimen with a stress of 2 was started at dinner time last evening. * Fasting BSG was 111mg/dL this morning. No basal insulin is needed at this time. Loosened correction factor this morning as stress from surgery and steroids did not seem to effect her blood glucose much so did not want to overcorrect. PLAN FOR INPATIENT GLYCEMIC CONTROL: * Hold outpatient oral diabetes medications * Basal insulin * none, will reassess need with additional blood glucose readings. * Bolus insulin * NovoLog per scale ACHS or Q6hrs while NPO * Goal Range: Low 110 mg/dL - High 160 mg/dL * Correction Factor: 20 mg/dL/unit * Nutritional / Prandial insulin per carb ratio of 1 unit per 15 grams CHO consumed
[2024-12-06] MEDS: METOPROLOL SUCC 50MG EXT REL TAB PO SCH (13:25)
--- NOTE | 2024-12-06 13:32 | Orthopedic Progress Note ---
Date of Service December 06, 2024 Assessment & Plan (1) Spondylolisthesis, lumbar region: Plan: This time we will continue physical therapy monitor her AMBER operatively discharge home in the next few days. Admission and Anticipated Discharge Date Admission Date: December 05, 2024 Subjective Patient's back pain is controlled leg pain improved. Physical Exam Physical Exam: Patient is in the chair at the bedside. She is comfortable. Is good strength t esting. Results & Data Vital Signs (Past 12 Hours) Vital Signs Temp Pulse Pulse Resp BP Pulse Ox O2 Del Method 12/06/24 12:25 96 12/06/24 10:54 36.6 C 78 20 139/83 95 Room Air 12/06/24 07:40 36.6 C 80 20 106/67 95 Nasal Cannula 12/06/24 06:52 99 H 12/06/24 03:26 36.5 C 72 16 96/60 L 93 Nasal Cannula O2 Flow Rate 12/06/24 12:25 12/06/24 10:54 12/06/24 07:40 1 12/06/24 06:52 12/06/24 03:26 1 Queries Orthopedic Spine Obesity: Yes
--- NOTE | 2024-12-06 14:56 | Hospitalist Progress Note ---
Date of Service December 06, 2024 Assessment & Plan (1) Spondylolisthesis, lumbar region: (2) S/P spinal surgery: Plan: Patient is a 74-year-old female with past medical history significant for DMII, HLD, HTN, ZACKARY on CPAP, history of cardiomyopathy with reduced EF in July 2019 [EF = 65-69%; TTE 06/2023], long QT interval, trivial pericardial effusion, fibromyalgia on Cymbalta and gabapentin, senile osteoporosis, sacroiliitis, lichenoid dermatitis, IBS with constipation, GERD, stress incontinence, migraines, depression and other problems listed below who is being seen in consultation for routine postoperative medical management after undergoing elective L4-L5 hardware removal and L4-L5/L3-L4 decompression + fusion performed by Dr. Jiang Lumbar spondylolisthesis with radiculopathy Lumbar disc herniation --S/P lumbar decompression, fusion surgery, hardware removal by Dr. Jiang on 12/05/2024 Postoperative acute blood loss anemia Pain control, wound care, activity, DVT prophylaxis per primary team Continue bowel regimen to prevent constipation Monitor CBC, no indication for blood transfusion currently PT OT when appropriate (3) Sinus pause: Plan: 2 brief sinus pause events intraoperatively -1st event lasted ~3 seconds, 2nd event lasted ~3-5 seconds --ECHO: EF 65 to 70%. Mild concentric LVH. Borderline right ventricular enlargement. Grade 1 diastolic dysfunction. 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 Mullen, [facility] cardiology Echo as above Monitor volume status Continue metoprolol as above Resume valsartan as able (5) HTN (hypertension): Plan: Continue metoprolol as above Hold valsartan for now Monitor blood pressure (6) Type 2 diabetes mellitus: Plan: Hgb A1c 6% 2mo ago Hold home regimen; SSI protocol while inpt Follow BSG checks ACHS, appreciate glycemic pharm assistance (7) ZACKARY (obstructive sleep apnea): Plan: Continue CPAP HS Other Chronic Medical Conditions: HLD - Continue statin, ASA (as per primary service) Fibromyalgia - Continue gabapentin, Cymbalta GERD - Continue PPI Migraines - Continue Topamax DVT Prophylaxis: As per primary service CODE STATUS Full code Disposition: As per primary service Admission and Anticipated Discharge Date Admission Date: December 05, 2024 Subjective Patient is seen and examined at bedside States feeling tired today Also reports back pain at surgical site Also states having burping which she attributes to indigestion Denies any chest pain, dyspnea, nausea, vomiting, abdominal pain, dizziness Review of Systems Review of Systems: All systems reviewed & are unremarkable except as noted in Subjective Physical Exam Physical Exam: Physical Exam: Vitals signs as noted above General Appearance:Morbidly Obese, no apparent distress Head: normocephalic, Atraumatic Eyes: normal inspection, EOMI Neck: supple, Trachea midline Respiratory/Chest: Normal breath sounds, CTA, No accessory muscle use Cardiovascular: S1, S2, No murmur Abdomen/GI:Soft, Non tender, Bowel sounds present Back: Surgical site in dressing, + drain Extremities/Musculoskeletal:normal inspection, Trace edema Neurologic/Psych:AAOX3, grossly no focal neurological deficits Skin: normal color, warm Results & Data Results & Data Vital Signs (Past 12 Hours) Vital Signs Temp Pulse Pulse Resp BP Pulse Ox O2 Del Method 12/06/24 12:25 96 12/06/24 10:54 36.6 C 78 20 139/83 95 Room Air 12/06/24 07:40 36.6 C 80 20 106/67 95 Nasal Cannula 12/06/24 06:52 99 H 12/06/24 03:26 36.5 C 72 16 96/60 L 93 Nasal Cannula O2 Flow Rate 12/06/24 12:25 12/06/24 10:54 12/06/24 07:40 1 12/06/24 06:52 12/06/24 03:26 1 Laboratory Results Short CBC 12/05/24 12/06/24 Range/Units 17:57 06:33 WBC 9.95 9.85 (4.8-10.8) K/ul Hgb 12.3 11.3 L (12.0-16.0) g/dl Hct 39.4 36.3 L (37.0-47.0) % Plt Count 138 126 L (130-400) K/uL BMP 12/05/24 12/06/24 17:57 06:33 Sodium 139 138 Potassium 4.0 4.0 Chloride 108 H 108 H Carbon Dioxide 25 22 BUN 13 13 Creatinine 0.76 0.74 Glucose 138 H 110 H Calcium 8.7 8.1 L (5) HTN (hypertension) Hypertension type: unspecified Qualified Code(s): I10 - Essential (primary) hypertension (6) Type 2 diabetes mellitus Diabetes mellitus director long term care insulin use: unspecified director long term care insulin use status Diabetes mellitus complication status: without complication Qualified Code(s): E11.9 - Type 2 diabetes mellitus without complications
[2024-12-07 08:28] LABS: Anion Gap 7.0 (3-11); Blood Urea Nitrogen 15.0 mg/dl (6-23); Calcium 8.5 mg/dl (8.6-10.3); Carbon Dioxide 28.0 mmol/L (21-32); Chloride 105.0 mmol/L (98-107); Creatinine Clr Calc Pharmacy 85.8 ml/min; Glucose 89.0 mg/dl (70-99(Fasting)); Magnesium 2.1 mg/dl (1.7-2.4); Potassium 3.3 mmol/L (3.5-5.1); Sodium 140.0 mmol/L (136-145)
[2024-12-07 08:42] LABS: Hematocrit (blood only) 34.3 % (37.0-47.0); Hemoglobin 10.8 g/dl (12.0-16.0); Mean Corpuscular Hemoglobin 27.1 pg (25.0-34.0); Mean Corpuscular Volume 86.0 fL (80.0-100.0); Platelet Count 134 K/uL (130-400); RDW Standard Deviation 43.7 fL (36.4-46.3); Red Blood Count 3.99 M/uL (4.20-5.40); White Blood Count 10.42 K/ul (4.8-10.8)
--- NOTE | 2024-12-07 11:03 | Cardiology Progress Note ---
Date of Service December 07, 2024 Assessment & Plan (1) Sinus pause: (2) HTN (hypertension): (3) History of cardiomyopathy: (4) Prolonged QT interval: (5) Hypokalemia: Plan 12/06/24 Patient with a history of non ischemic cardiomyopathy (LVEF improved with GDMT) and hypertension underwent spinal surgery yesterday and during procedure, apparently had 2 sinus pauses lasting approx 3 seconds. In the post op setting/recovery patient was asymptomatic and no further arrhythmias. Metoprolol succinate held post op (Home dose was 50 mg BID) Valsartan also held post op due to hypotension Telemetry reviewed overnight and this morning. No bradycardia, pauses, or high degree AV block. HR 60-80 bmp Resume lower dose metoprolol succinate 50 mg daily. 2 week outpatient school bus monitor to be ordered. Hypertension -resume metoprolol 50 mg daily (lower dose) -continue to hold valsartan for now History of non ischemic cardiomyopathy - echo this morning with preserved LVEF. 12/07/24: Sinus pause during intraop spinal surgery. -Metoprolol held post op -Lower dose metoprolol succinate 50 mg daily resumed yesterday (prior home dose was 50 mg BID). No arrhythmias overnight. No symptomatic bradycardia or pauses. -Outpatient ZIO monitor to be ordered on discharge. Borderline prolonged QT interval -Repeat EKG requested this morning and pending - monitor QT. -avoid QT prolonging medications Hypokalemia Replace potassium - 40 meq ordered for potassium of 3.3. History of non ischemic cardiomyopathy Echo this admission with preserved LVEF, no wall motion abnormalities. No significant valvular disease. She had negative nuclear stress test in Mar 2024. Hypertension -BP has been borderline low post op -Valsartan on hold -metoprolol reduced. -likely will need valsartan resumed upon discharge Stable from cardiac perspective to be transferred back to ortho floor today for ongoing therapy. Message sent to hospitalist Case discussed with Dr. Hoffmann I spent a total of 30 minutes on the date of service in preparation, delivery, and documentation of the care provided to this patient, excluding any time spent in the performance of separately billed services. Lissette Nicholson PA-C Department of Cardiology, [facility] This chart was completed in part utilizing Speech Voice Recognition Software. Grammatical errors, random word insertions, pronoun errors, and incomplete sentences are an occasional consequence of this system due to software limitations, ambient noise, and hardware issues. Any formal questions or concerns about the content, text, or information contained within the body of this dictation should be directly addressed to the provider for clarification. Admission and Anticipated Discharge Date Admission Date: December 05, 2024 Supervising Physician Co-Signing Physician Notes I have personally performed a history and physical examination on the patient. I have reviewed the advance practitioner's documentation, and I agree with, and take responsibility for the plan of care. Patient feeling improved. Telemetry reveals sinus rhythm in the 70s to 80s without bradycardia. Metoprolol reinitiated at lower dose and is being tolerated well thus far. Exam: Cardiovascular: Regular rhythm,No murmurs, no edema Data: EKG performed 12/07/2024 at 12:14 PM reveals sinus rhythm 83 bpm, QTc interval mildly prolonged at 502 ms relatively unchanged compared to 12/05/2024 Recommendations: * Continue Toprol-XL to 50 mg daily. * Stable for transfer off of telemetry to Med /surg ortho * 14-day outpatient ZIO monitor to be placed as outpatient * Resume valsartan * Avoid QT prolonging agents Kayden Hoffmann, DO Insert billing forI spent a total of 20 minutes on the date of service in pr eparation, delivery, and documentation of the care provided to this patient, excluding any time spent in the performance of separately billed services. Subjective Patient seen while working with PT. Ambulating in hallways this morning. No chest pain, dyspnea, dizziness. Telemetry without arrhythmias, bradycardia or pauses. She voices no concerns Review of Systems Review of Systems: All systems reviewed & are unremarkable except as noted in HPI & below Physical Exam Constitutional: WD/WN, vitals as above well developed and + obese; no acute distress Neck: trachea midline, no thyromegaly Respiratory: normal respiratory effort, lungs clear to auscultation Cardiovascular: Rate/Rhythm: regular rate and regular rhythm Heart Sounds: normal S1 and normal S2; no murmur Vessels: no JVD Extremities: no edema Gastrointestinal (Abdomen): normal bowel sounds, soft, nontender, no hepatosplenomegaly Musculoskeletal: no cyanosis or clubbing, extremities motor strength 5/5 Neurologic: PERRL, EOMI, accommodation nl, no face palsy, no dysarthria Results & Data Vital Signs (Past 12 Hours) Vital Signs Temp Pulse Pulse Resp BP Pulse Ox O2 Del Method 12/07/24 08:12 36.5 C 79 18 128/74 93 Room Air 12/07/24 07:58 74 12/07/24 02:54 36.7 C 70 16 106/66 96 Nasal Cannula 12/06/24 23:29 36.5 C 69 16 104/64 94 Nasal Cannula O2 Flow Rate 12/07/24 08:12 12/07/24 07:58 12/07/24 02:54 2 12/06/24 23:29 2 Laboratory Results CBC 12/07/24 Range/Units 07:50 WBC 10.42 (4.8-10.8) K/ul RBC 3.99 L (4.20-5.40) M/uL Hgb 10.8 L (12.0-16.0) g/dl Hct 34.3 L (37.0-47.0) % Plt Count 134 (130-400) K/uL Comprehensive Metabolic Panel 12/07/24 Range/Units 07:50 Sodium 140 (136-145) mmol/L Potassium 3.3 L (3.5-5.1) mmol/L Chloride 105 (98-107) mmol/L Carbon Dioxide 28 (21-32) mmol/L BUN 15 (6-23) mg/dl Creatinine 0.72 (0.6-1.2) mg/dl Glucose 89 (70-99(Fasting)) mg/dl Calcium 8.5 L (8.6-10.3) mg/dl Intake and Output 12/06/24 12/07/24 12/07/24 22:59 06:59 14:59 Intake Total 240 / 490 250 / 490 Output Total 60 / 970 50 / 970 Balance 180 / -480 200 / -480 Intake: Oral 240 / 490 250 / 490 Output: Drain Output 60 / 245 50 / 245 Back AMBER 60 / 245 50 / 245 Other: # Unmeasured Voids 2 Diagnostic Findings Telemetry reviewed: NSR ranging 70-90's. No arrhythmias. No pauses or symptomatic bradycardia. Repeat EKG - pending to review borderline prolonged QT interval Medications Administered Current Inpatient Medications Acetaminophen (Acetaminophen 500 Mg Tab) 1,000 mg PO Q8H PRN PRN Reason: MILD Pain (1,2,3) & Pre PT Stop: 01/04/25 16:42 Hydrocodone Bitart/Acetaminophen (Hydrocodone/Acetamophen 5/325mg Tab) 1 - 2 tab PO Q4H PRN PRN Reason: MOD/SEV Pain & Pre PT Stop: 12/19/24 16:42 Last Admin: 12/07/24 07:46 Dose: 2 tab Al Hydrox/Mg Hydrox/Simethicone (Aluminum/Magnesium/Simeth (Maalox Max) 30 Ml Udc) 15 ml PO Q6H PRN PRN Reason: Dyspepsia Stop: 01/05/25 11:43 Aspirin (Aspirin 81 Mg Ectab) 81 mg PO QAM ALEXIS Stop: 01/05/25 08:59 Last Admin: 12/07/24 08:39 Dose: 81 mg Atorvastatin Calcium (Atorvastatin 40 Mg Tab) 40 mg PO QPM ALEXIS Stop: 01/04/25 20:59 Last Admin: 12/06/24 20:47 Dose: 40 mg Baclofen (Baclofen 10 Mg Tab) 10 mg PO HS ALEXIS Stop: 01/04/25 20:59 Last Admin: 12/06/24 20:47 Dose: 10 mg Bisacodyl (Bisacodyl 10 Mg Supp) 10 mg [place] DAILY PRN PRN Reason: Constipation Stop: 01/04/25 16:42 Cyanocobalamin (Cyanocobalamin (B-12) 500 Mcg Tablet) 1,000 mcg PO DAILY ALEXIS Stop: 01/05/25 08:59 Last Admin: 12/07/24 08:40 Dose: 1,000 mcg Dextrose (Dextrose 50% 50 Ml Syringe) 25 - 50 ml IV UD PRN; Protocol PRN Reason: Hypoglycemia Protocol Stop: 01/04/25 18:12 Diphenhydramine HCl (Diphenhydramine Capsule 25 Mg Cap) 25 mg PO Q6H PRN PRN Reason: Allergic Rhinitis/Insomnia Stop: 01/04/25 16:42 Duloxetine HCl (Duloxetine Hcl 60 Mg Cap) 60 mg PO BID ALEXIS Stop: 01/04/25 20:59 Last Admin: 12/07/24 08:41 Dose: 60 mg Ergocalciferol (Ergocalciferol 1250 Mcg (50,000 Units) Cap) 1,250 mcg PO Fr@0900 ALEXIS Stop: 01/08/25 08:59 Famotidine (Famotidine 20 Mg Tab) 20 mg PO Q12H PRN PRN Reason: Dyspepsia Stop: 01/04/25 16:42 Gabapentin (Gabapentin 600 Mg Tab) 600 mg PO BID ALEXIS Stop: 01/04/25 20:59 Last Admin: 12/07/24 08:40 Dose: 600 mg Glucagon (Glucagon For Inj 1 Mg Vial) 1 mg SQ UD PRN; Protocol PRN Reason: Hypoglycemia Protocol Stop: 01/04/25 18:12 Glucose (Glucose 40% Gel 15 Gm Tube) 15 - 30 gm PO UD PRN; Protocol PRN Reason: Hypoglycemia Protocol Stop: 01/04/25 18:12 Glucose (Glucose 10 Tab/Tube) 4 - 8 tab PO UD PRN; Protocol PRN Reason: Hypoglycemia Protocol Stop: 01/04/25 18:12 Hydromorphone HCl (Hydromorphone Inj 0.5 Mg/0.5 Ml Syr) 0.5 mg IV Q3H PRN PRN Reason: MODERATE Pain(4,5,6)/Pre PT Stop: 12/19/24 16:42 Hydromorphone HCl (Hydromorphone Inj 1 Mg/Ml Syringe) 1 mg IV Q3H PRN PRN Reason: SEVERE Pain (7,8,9,10) Stop: 12/19/24 16:42 Last Admin: 12/06/24 05:54 Dose: 1 mg Hydroxyzine HCl (Hydroxyzine Hcl 25 Mg Tab) 25 mg PO Q8H PRN PRN Reason: Anxiety Stop: 01/04/25 16:42 Promethazine HCl (Phenergan) 12.5 mg in 50.5 mls @ 202 mls/hr IV Q6H PRN PRN Reason: Nausea And Vomiting Stop: 01/04/25 16:42 Dexamethasone 6 mg/ Syringe 1.5 mls @ 1 mls/min IV DAILY ALEXIS Stop: 12/08/24 09:02 Last Admin: 12/07/24 08:55 Dose: 1 mls/min Cefazolin Sodium (Ancef 2000mg) 2,000 mg in 15 mls @ 2.5 mls/min IV Q8H ALEXIS Stop: 12/13/24 13:59 Last Admin: 12/07/24 05:48 Dose: 2.5 mls/min Influenza Virus Vaccine Quadrival (Do Not Administer Flu Vaccine) 1 each N/A PRN PRN PRN Reason: Notification Stop: 01/04/25 16:42 Insulin Aspart (Insulin Aspart Per Unit Charge) 0 units SC ACHS [facility] Stop: 01/04/25 18:29 Last Admin: 12/07/24 08:48 Dose: 3 units Lorazepam (Lorazepam 0.5 Mg Tab) 0.5 mg PO Q8H PRN PRN Reason: Sedation/Anxiety Stop: 01/04/25 16:42 Lorazepam (Lorazepam 2 Mg/1 Ml Vial) 0.5 mg IV Q8H PRN PRN Reason: Sedation/Anxiety Stop: 01/04/25 16:42 Magnesium Hydroxide (Magnesium Hydroxide Susp 30 Ml Udc) 30 ml PO Q24H PRN PRN Reason: Constipation Stop: 01/04/25 16:42 Metoclopramide HCl (Metoclopramide Hcl Inj 5 Mg/Ml 2 Ml Vial) 10 mg IV Q6H PRN PRN Reason: Nausea &/or Vomiting Stop: 01/04/25 16:42 Metoprolol Succinate (Metoprolol Succ 50mg Ext Rel Tab) 50 mg PO QAM [facility] Stop: 01/05/25 12:14 Last Admin: 12/07/24 08:54 Dose: 50 mg Miscellaneous (Ubrelvy: Order Awaiting Action) 1 each N/A QS [facility] Stop: 01/05/25 00:00 Last Admin: 12/06/24 23:17 Dose: Not Given Miscellaneous (Carbohydrates For Hypoglycemia ) 15 - 30 gm PO UD PRN PRN Reason: Hypoglycemia Protocol Stop: 01/04/25 18:12 Miscellaneous Information (Pharmacy Glycemic Mgmt Consult) 1 each N/A UD PRN PRN Reason: Consult Stop: 01/04/25 18:12 Naloxone HCl (Naloxone Hcl 0.4 Mg/1 Ml Vial/Carp) 0.1 mg IV Q5M PRN PRN Reason: Oversedation/Resp depression Stop: 01/04/25 16:42 Ondansetron HCl (Ondansetron Inj 2 Mg/Ml 2 Ml Vial) 4 mg IV Q6H PRN PRN Reason: Nausea &/or Vomiting Stop: 01/04/25 16:42 Ondansetron HCl (Ondansetron 4 Mg Od Tab) 4 mg PO Q6H PRN PRN Reason: Nausea Stop: 01/04/25 16:42 Pantoprazole Sodium (Pantoprazole 40 Mg Tab) 40 mg PO BID ALEXIS; Protocol Stop: 01/04/25 20:59 Last Admin: 12/07/24 08:41 Dose: 40 mg Pneumococcal Polyvalent Vaccine (Do Not Administer Pneumococcal Vaccine) 1 each N/A PRN PRN PRN Reason: Notification Stop: 01/04/25 16:42 Polyethylene Glycol (Polyethylene (Miralax) 17 Gm Pack) 17 gm PO Q6 [facility] Stop: 01/05/25 05:59 Last Admin: 12/07/24 05:48 Dose: 17 gm Senna/Docusate Sodium (Docusate Sodium/Senna 50/8.6mg Tab) 2 tab PO HS [facility]LEXIS Stop: 01/04/25 20:59 Last Admin: 12/06/24 20:47 Dose: 2 tab Sodium Biphosphate/Sodium Phosphate (Sod Phosphate/Sod Biphosphate Enema 132 Ml Btl) 132 ml [place] ONE PRN PRN Reason: Constipation Stop: 01/04/25 16:42 Topiramate (Topiramate 100 Mg Tab) 100 mg PO HS ALEXIS Stop: 01/04/25 20:59 Last Admin: 12/06/24 20:47 Dose: 100 mg Tramadol HCl (Tramadol Hcl 50 Mg Tablet) 50 - 100 mg PO Q4H PRN PRN Reason: MOD/SEV Pain & Pre PT Stop: 01/04/25 16:42 Valsartan (Valsartan 80 Mg Tab) 40 mg PO QAM [facility] Stop: 01/05/25 08:59 Vitamin D (Cholecalciferol 25 Mcg (1000 Units) Tab) 50 mcg PO BID [facility] Stop: 01/04/25 20:59 Last Admin: 12/07/24 08:39 Dose: 50 mcg PG Care Time/CCT Total # of Minutes Spent Total Time Spent with Patient: Total time spent is greater than 50% in coordination of care (as documented) at patient's floor/unit and/or counseling patient: 30 Coding Level of Care Code 50072 SUB INP/OBS CARE 3/50MIN History Comprehensive Exam Comprehensive Medical Decision Making High Complexity Diagnoses Sinus pause I45.5 Hypertension, unspecified type I10 Hypertension type: unspecified History of cardiomyopathy Z86.79 Prolonged QT interval R94.31 Hypokalemia E87.6 Time Spent (min) 50 Comment 30 minutes spent by Lissette Nicholson PA-C, 20 minutes by Peggy Hoffmann DO (2) HTN (hypertension) Hypertension type: unspecified Qualified Code(s): I10 - Essential (primary) hypertension
--- NOTE | 2024-12-07 12:02 | Orthopedic Progress Note ---
Date of Service December 07, 2024 Assessment & Plan (1) Spondylolisthesis, lumbar region: Plan: At this time we will continue physical therapy monitor her AMBER output. Possible discharge home or Thursday. Admission and Anticipated Discharge Date Admission Date: December 05, 2024 Subjective Patient is back pain is controlled leg symptoms markedly improved. Tolerating physical therapy. Physical Exam Physical Exam: Patient is in her bed. She is comfortable. Distracted testing. Results & Data Vital Signs (Past 12 Hours) Vital Signs Temp Pulse Pulse Resp BP Pulse Ox O2 Del Method 12/07/24 11:27 36.3 C L 85 20 155/82 H 98 Room Air 12/07/24 08:12 36.5 C 79 18 128/74 93 Room Air 12/07/24 07:58 74 12/07/24 02:54 36.7 C 70 16 106/66 96 Nasal Cannula O2 Flow Rate 12/07/24 11:27 12/07/24 08:12 12/07/24 07:58 12/07/24 02:54 2 Queries Orthopedic Spine Obesity: Yes
[2024-12-07] MEDS: POTASSIUM CHLORIDE CRTAB 20 MEQ TABCR PO ONE (12:20)
--- NOTE | 2024-12-07 14:08 | Pharmacy Report ---
Pharmacy Glycemic Short Note 2 - Date of Service December 07, 2024 - Glycemic Short BSG Results (Last 24 hours): 12/06/24 12/06/24 12/07/24 16:50 20:25 07:50 Glucose 89 POC Glucose 141 H 134 H 12/07/24 12/07/24 07:51 12:16 Glucose POC Glucose 104 H 152 H OUTPATIENT ANTIDIABETIC REGIMEN: * Januvia 50mg po daily HbA1c: 5.9% on 11/21/24 ASSESSMENT: 12/07 * Nuvia received 7 units of insulin yesterday (all were bolus). All BSGs were in goal range yesterday. * Fasting BSG was 104mg/dL. Will not add Lantus and bolus insulin regimen will be continued as ordered. 12/06 * RICO is a 74 year old female who was admitted yesterday for spinal decompression and fusion. Pharmacy was consulted for glycemic management postop. * Preop BSG was 100mg/dL and postop on blood draw was 138mg/dL. She did receive 4mg iv dexamethasone preop. A weight based bolus insulin regimen with a stress of 2 was started at dinner time last evening. * Fasting BSG was 111mg/dL this morning. No basal insulin is needed at this time. Loosened correction factor this morning as stress from surgery and steroids did not seem to effect her blood glucose much so did not want to overcorrect. PLAN FOR INPATIENT GLYCEMIC CONTROL: * Hold outpatient oral diabetes medications * Basal insulin * none needed * Bolus insulin * NovoLog per scale ACHS or Q6hrs while NPO * Goal Range: Low 110 mg/dL - High 160 mg/dL * Correction Factor: 20 mg/dL/unit * Nutritional / Prandial insulin per carb ratio of 1 unit per 15 grams CHO consumed
--- NOTE | 2024-12-07 14:24 | Hospitalist Progress Note ---
Date of Service December 07, 2024 Assessment & Plan (1) Spondylolisthesis, lumbar region: (2) S/P spinal surgery: Plan: Patient is a 74-year-old female with past medical history significant for DMII, HLD, HTN, ZACKARY on CPAP, history of cardiomyopathy with reduced EF in July 2019 [EF = 65-69%; TTE 06/2023], long QT interval, trivial pericardial effusion, fibromyalgia on Cymbalta and gabapentin, senile osteoporosis, sacroiliitis, lichenoid dermatitis, IBS with constipation, GERD, stress incontinence, migraines, depression and other problems listed below who is being seen in consultation for routine postoperative medical management after undergoing elective L4-L5 hardware removal and L4-L5/L3-L4 decompression + fusion performed by Dr. Jiang Lumbar spondylolisthesis with radiculopathy Lumbar disc herniation --S/P lumbar decompression, fusion surgery, hardware removal by Dr. Jiang on 12/05/2024 Postoperative acute blood loss anemia Pain control, wound care, activity, DVT prophylaxis per primary team Continue bowel regimen to prevent constipation Monitor CBC, no indication for blood transfusion currently PT OT when appropriate Minimal back pain but no radiculopathy pain in the management will be as per orthospine (3) Sinus pause: Plan: 2 brief sinus pause events intraoperatively -1st event lasted ~3 seconds, 2nd event lasted ~3-5 seconds --ECHO: EF 65 to 70%. Mild concentric LVH. Borderline right ventricular enlargement. Grade 1 diastolic dysfunction. 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 Mullen [facility] cardiology Echo as above Monitor volume status Continue metoprolol as above Will restart valsartan as blood pressure is going up (5) HTN (hypertension): Plan: Continue metoprolol as above Hold valsartan for now Monitor blood pressure-as above (6) Type 2 diabetes mellitus: Plan: Hgb A1c 6% 2mo ago Hold home regimen; SSI protocol while inpt Follow BSG checks ACHS, appreciate glycemic pharm assistance (7) ZACKARY (obstructive sleep apnea): Plan: Continue CPAP HS Other Chronic Medical Conditions: HLD - Continue statin, ASA (as per primary service) Fibromyalgia - Continue gabapentin, Cymbalta GERD - Continue PPI Migraines - Continue Topamax DVT Prophylaxis: As per primary service CODE STATUS Full code Disposition: As per primary service Admission and Anticipated Discharge Date Admission Date: December 05, 2024 Subjective 12/07/2024 The patient was seen and examined in medical telemetry unit She has been feeling much better Denies any significant symptoms and no palpitation, chest pain or any more pauses or arrhythmia on the monitor. Review of Systems Review of Systems: All systems reviewed and are unremarkable except as noted below Physical Exam Physical Exam: Sitting on a chair without any acute distress Constitutional: well developed, well nourished and + obese; not ill appearing Eyes: PERRL, conjunctivae normal, anicteric sclerae ENMT: external ear and nose normal, oropharynx normal Neck: trachea midline, no thyromegaly Respiratory: no respiratory distress Auscultation: lungs clear to auscultation bilaterally Cardiovascular: Rate/Rhythm: regular rate and regular rhythm; not tachycardic Heart Sounds: normal S1 and normal S2; no murmur Extremities: + edema (Trace edema bilaterally) Gastrointestinal (Abdomen): Inspection/Auscultation: normal bowel sounds; abdomen not distended Percussion/Palpation: abdomen soft; abdomen nontender Musculoskeletal: Minimal back pain but no acute arthritis involving any of the joint Neurologic: normal touch/pain/proprioception and moves all extremities; no focal motor deficits Psychiatric: A+Ox3, euthymic affect Lymphatic: no cervical or axillary lymphadenopathy Results & Data Results & Data Vital Signs (Past 12 Hours) Vital Signs Temp Pulse Pulse Resp BP Pulse Ox O2 Del Method 12/07/24 11:27 36.3 C L 85 20 155/82 H 98 Room Air 12/07/24 08:12 36.5 C 79 18 128/74 93 Room Air 12/07/24 07:58 74 12/07/24 02:54 36.7 C 70 16 106/66 96 Nasal Cannula O2 Flow Rate 12/07/24 11:27 12/07/24 08:12 12/07/24 07:58 12/07/24 02:54 2 Laboratory Results Short CBC 12/07/24 Range/Units 07:50 WBC 10.42 (4.8-10.8) K/ul Hgb 10.8 L (12.0-16.0) g/dl Hct 34.3 L (37.0-47.0) % Plt Count 134 (130-400) K/uL BMP 12/07/24 07:50 Sodium 140 Potassium 3.3 L Chloride 105 Carbon Dioxide 28 BUN 15 Creatinine 0.72 Glucose 89 Calcium 8.5 L Medications Administered Current Inpatient Medications Acetaminophen (Acetaminophen 500 Mg Tab) 1,000 mg PO Q8H PRN PRN Reason: MILD Pain (1,2,3) & Pre PT Stop: 01/04/25 16:42 Hydrocodone Bitart/Acetaminophen (Hydrocodone/Acetamophen 5/325mg Tab) 1 - 2 tab PO Q4H PRN PRN Reason: MOD/SEV Pain & Pre PT Stop: 12/19/24 16:42 Last Admin: 12/07/24 07:46 Dose: 2 tab Al Hydrox/Mg Hydrox/Simethicone (Aluminum/Magnesium/Simeth (Maalox Max) 30 Ml Udc) 15 ml PO Q6H PRN PRN Reason: Dyspepsia Stop: 01/05/25 11:43 Aspirin (Aspirin 81 Mg Ectab) 81 mg PO QAM [facility] Stop: 01/05/25 08:59 Last Admin: 12/07/24 08:39 Dose: 81 mg Atorvastatin Calcium (Atorvastatin 40 Mg Tab) 40 mg PO QPM [facility]LEX[facility] Stop: 01/04/25 20:59 Last Admin: 12/06/24 20:47 Dose: 40 mg Baclofen (Baclofen 10 Mg Tab) 10 mg PO HS ALEXIS Stop: 01/04/25 20:59 Last Admin: 12/06/24 20:47 Dose: 10 mg Bisacodyl (Bisacodyl 10 Mg Supp) 10 mg AK DAILY PRN PRN Reason: Constipation Stop: 01/04/25 16:42 Cyanocobalamin (Cyanocobalamin (B-12) 500 Mcg Tablet) 1,000 mcg PO DAILY [facility] Stop: 01/05/25 08:59 Last Admin: 12/07/24 08:40 Dose: 1,000 mcg Dextrose (Dextrose 50% 50 Ml Syringe) 25 - 50 ml IV UD PRN; Protocol PRN Reason: Hypoglycemia Protocol Stop: 01/04/25 18:12 Diphenhydramine HCl (Diphenhydramine Capsule 25 Mg Cap) 25 mg PO Q6H PRN PRN Reason: Allergic Rhinitis/Insomnia Stop: 01/04/25 16:42 Duloxetine HCl (Duloxetine Hcl 60 Mg Cap) 60 mg PO BID [facility] Stop: 01/04/25 20:59 Last Admin: 12/07/24 08:41 Dose: 60 mg Ergocalciferol (Ergocalciferol 1250 Mcg (50,000 Units) Cap) 1,250 mcg PO Fr@0900 [facility] Stop: 01/08/25 08:59 Famotidine (Famotidine 20 Mg Tab) 20 mg PO Q12H PRN PRN Reason: Dyspepsia Stop: 01/04/25 16:42 Gabapentin (Gabapentin 600 Mg Tab) 600 mg PO BID [facility] Stop: 01/04/25 20:59 Last Admin: 12/07/24 08:40 Dose: 600 mg Glucagon (Glucagon For Inj 1 Mg Vial) 1 mg SQ UD PRN; Protocol PRN Reason: Hypoglycemia Protocol Stop: 01/04/25 18:12 Glucose (Glucose 40% Gel 15 Gm Tube) 15 - 30 gm PO UD PRN; Protocol PRN Reason: Hypoglycemia Protocol Stop: 01/04/25 18:12 Glucose (Glucose 10 Tab/Tube) 4 - 8 tab PO UD PRN; Protocol PRN Reason: Hypoglycemia Protocol Stop: 01/04/25 18:12 Hydromorphone HCl (Hydromorphone Inj 0.5 Mg/0.5 Ml Syr) 0.5 mg IV Q3H PRN PRN Reason: MODERATE Pain(4,5,6)/Pre PT Stop: 12/19/24 16:42 Hydromorphone HCl (Hydromorphone Inj 1 Mg/Ml Syringe) 1 mg IV Q3H PRN PRN Reason: SEVERE Pain (7,8,9,10) Stop: 12/19/24 16:42 Last Admin: 12/06/24 05:54 Dose: 1 mg Hydroxyzine HCl (Hydroxyzine Hcl 25 Mg Tab) 25 mg PO Q8H PRN PRN Reason: Anxiety Stop: 01/04/25 16:42 Promethazine HCl (Phenergan) 12.5 mg in 50.5 mls @ 202 mls/hr IV Q6H PRN PRN Reason: Nausea And Vomiting Stop: 01/04/25 16:42 Dexamethasone 6 mg/ Syringe 1.5 mls @ 1 mls/min IV DAILY [facility] Stop: 12/08/24 09:02 Last Admin: 12/07/24 08:55 Dose: 1 mls/min Cefazolin Sodium (Ancef 2000mg) 2,000 mg in 15 mls @ 2.5 mls/min IV Q8H [facility] Stop: 12/13/24 13:59 Last Admin: 12/07/24 14:10 Dose: 2.5 mls/min Influenza Virus Vaccine Quadrival (Do Not Administer Flu Vaccine) 1 each N/A PRN PRN PRN Reason: Notification Stop: 01/04/25 16:42 Insulin Aspart (Insulin Aspart Per Unit Charge) 0 units SC ACHS [facility] Stop: 01/04/25 18:29 Last Admin: 12/07/24 12:58 Dose: 2 units Lorazepam (Lorazepam 0.5 Mg Tab) 0.5 mg PO Q8H PRN PRN Reason: Sedation/Anxiety Stop: 01/04/25 16:42 Lorazepam (Lorazepam 2 Mg/1 Ml Vial) 0.5 mg IV Q8H PRN PRN Reason: Sedation/Anxiety Stop: 01/04/25 16:42 Magnesium Hydroxide (Magnesium Hydroxide Susp 30 Ml Udc) 30 ml PO Q24H PRN PRN Reason: Constipation Stop: 01/04/25 16:42 Metoclopramide HCl (Metoclopramide Hcl Inj 5 Mg/Ml 2 Ml Vial) 10 mg IV Q6H PRN PRN Reason: Nausea &/or Vomiting Stop: 01/04/25 16:42 Metoprolol Succinate (Metoprolol Succ 50mg Ext Rel Tab) 50 mg PO QAM [facility] Stop: 01/05/25 12:14 Last Admin: 12/07/24 08:54 Dose: 50 mg Miscellaneous (Ubrelvy: Order Awaiting Action) 1 each N/A QS [facility] Stop: 01/05/25 00:00 Last Admin: 12/06/24 23:17 Dose: Not Given Miscellaneous (Carbohydrates For Hypoglycemia ) 15 - 30 gm PO UD PRN PRN Reason: Hypoglycemia Protocol Stop: 01/04/25 18:12 Miscellaneous Information (Pharmacy Glycemic Mgmt Consult) 1 each N/A UD PRN PRN Reason: Consult Stop: 01/04/25 18:12 Naloxone HCl (Naloxone Hcl 0.4 Mg/1 Ml Vial/Carp) 0.1 mg IV Q5M PRN PRN Reason: Oversedation/Resp depression Stop: 01/04/25 16:42 Ondansetron HCl (Ondansetron Inj 2 Mg/Ml 2 Ml Vial) 4 mg IV Q6H PRN PRN Reason: Nausea &/or Vomiting Stop: 01/04/25 16:42 Ondansetron HCl (Ondansetron 4 Mg Od Tab) 4 mg PO Q6H PRN PRN Reason: Nausea Stop: 01/04/25 16:42 Pantoprazole Sodium (Pantoprazole 40 Mg Tab) 40 mg PO BID [facility]; Protocol Stop: 01/04/25 20:59 Last Admin: 12/07/24 08:41 Dose: 40 mg Pneumococcal Polyvalent Vaccine (Do Not Administer Pneumococcal Vaccine) 1 each N/A PRN PRN PRN Reason: Notification Stop: 01/04/25 16:42 Polyethylene Glycol (Polyethylene (Miralax) 17 Gm Pack) 17 gm PO Q6 [facility] Stop: 01/05/25 05:59 Last Admin: 12/07/24 13:02 Dose: 17 gm Senna/Docusate Sodium (Docusate Sodium/Senna 50/8.6mg Tab) 2 tab PO HS [facility] Stop: 01/04/25 20:59 Last Admin: 12/06/24 20:47 Dose: 2 tab Sodium Biphosphate/Sodium Phosphate (Sod Phosphate/Sod Biphosphate Enema 132 Ml Btl) 132 ml AK ONE PRN PRN Reason: Constipation Stop: 01/04/25 16:42 Topiramate (Topiramate 100 Mg Tab) 100 mg PO HS [facility] Stop: 01/04/25 20:59 Last Admin: 12/06/24 20:47 Dose: 100 mg Tramadol HCl (Tramadol Hcl 50 Mg Tablet) 50 - 100 mg PO Q4H PRN PRN Reason: MOD/SEV Pain & Pre PT Stop: 01/04/25 16:42 Valsartan (Valsartan 80 Mg Tab) 40 mg PO QAM [facility] Stop: 01/05/25 08:59 Vitamin D (Cholecalciferol 25 Mcg (1000 Units) Tab) 50 mcg PO BID [facility] Stop: 01/04/25 20:59 Last Admin: 12/07/24 08:39 Dose: 50 mcg (5) HTN (hypertension) Hypertension type: unspecified Qualified Code(s): I10 - Essential (primary) hypertension (6) Type 2 diabetes mellitus Diabetes mellitus termite technician insulin use: unspecified intermediate insulin use status Diabetes mellitus complication status: without complication Qualified Code(s): E11.9 - Type 2 diabetes mellitus without complications
[2024-12-08] MEDS: HYDROmorphone INJ 0.5 MG/0.5 ML SYR IV STA (03:02)
[2024-12-08 07:28] VITALS: RESP 20
--- NOTE | 2024-12-08 09:00 | Discharge Summary ---
Date of Service December 08, 2024 Admission HPI Per Admitting Provider This is a 74-year-old female who presents with chronic persistent back and leg pain after failing course of nonoperative care is here for surgical intervention. Admission Exam (Per Admitting) Constitutional WD/WN, vitals as above Eyes normal visual kenney by confrontation ENMT external ear and nose normal, oropharynx normal Neck normal visual inspection Respiratory normal respiratory effort Cardiovascular Extremities: normal capillary refill Gastrointestinal (Abdomen) Inspection/Auscultation: abdomen normal to inspection Musculoskeletal Spine: + limited thoraco-lumbar ROM and + pain with thoraco-lumbar ROM Extremities: extremities normal to inspection and strength 5/5 throughout Skin no rashes, warm and dry Neurologic normal touch/pain/proprioception and moves all extremities Psychiatric A+Ox3, euthymic affect Discharge Data Consultations 12/05/24 16:43 Consult Hospitalist Routine 12/05/24 20:55 Consult Cardiology Routine Procedures Performed Operation Date: 12/05/24 11:35 Actual Procedures p L3-L4 Decompression, L3-L5 Fusion(Not Applicable) - Mike Jiang DO s L4-L5 Hardware Removal,(Not Applicable) - Mike Jiang DO Hospital Course (1) Sinus pause: Follow-up with cardiology in 2 weeks for monitoring. Metoprolol resumed after being held (2) Spondylolisthesis, lumbar region: She has been discharged home on postoperative day 3. Intraoperatively she had a 3-second sinus pause. Cardiology was consulted. Metoprolol initially held postoperatively. She has since been resumed. She will have follow-up with cardiology in 2 weeks. Otherwise she has great pain control. Preoperative symptoms. She is making progress with physical therapy daily. She has had about. No other issues. Vital stable
[2024-12-08 11:02] VITALS: BP 134/75; PULSE 91; TEMP 97.3; O2SAT 94
[2024-12-08] MEDS: VALSARTAN 80 MG TAB PO SCH (13:01)
--- NOTE | 2024-12-08 13:28 | Hospitalist Progress Note ---
Date of Service December 08, 2024 Assessment & Plan (1) Spondylolisthesis, lumbar region: (2) S/P spinal surgery: Plan: Patient is a 74-year-old female with past medical history significant for DMII, HLD, HTN, ZACKARY on CPAP, history of cardiomyopathy with reduced EF in July 2019 [EF = 65-69%; TTE 06/2023], long QT interval, trivial pericardial effusion, fibromyalgia on Cymbalta and gabapentin, senile osteoporosis, sacroiliitis, lichenoid dermatitis, IBS with constipation, GERD, stress incontinence, migraines, depression and other problems listed below who is being seen in consultation for routine postoperative medical management after undergoing elective L4-L5 hardware removal and L4-L5/L3-L4 decompression + fusion performed by Dr. Jiang Lumbar spondylolisthesis with radiculopathy Lumbar disc herniation --S/P lumbar decompression, fusion surgery, hardware removal by Dr. Jiang on 12/05/2024 Postoperative acute blood loss anemia Pain control, wound care, activity, DVT prophylaxis per primary team Continue bowel regimen to prevent constipation Monitor CBC, no indication for blood transfusion currently PT OT when appropriate Minimal back pain but no radiculopathy pain in the management will be as per orthospine Remains medically stable with minimal back pain Will be discharged home by the primary this afternoon (3) Sinus pause: Plan: 2 brief sinus pause events intraoperatively -1st event lasted ~3 seconds, 2nd event lasted ~3-5 seconds --ECHO: EF 65 to 70%. Mild concentric LVH. Borderline right ventricular enlargement. Grade 1 diastolic dysfunction. 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 Mullen, [facility] cardiology Echo as above Monitor volume status Continue metoprolol as above Will restart valsartan as blood pressure is going up Blood pressure remains stable at 134/75 (5) HTN (hypertension): Plan: Continue metoprolol as above Hold valsartan for now Monitor blood pressure-as above (6) Type 2 diabetes mellitus: Plan: Hgb A1c 6% 2mo ago Hold home regimen; SSI protocol while inpt Follow BSG checks ACHS, appreciate glycemic pharm assistance (7) ZACKARY (obstructive sleep apnea): Plan: Continue CPAP HS Other Chronic Medical Conditions: HLD - Continue statin, ASA (as per primary service) Fibromyalgia - Continue gabapentin, Cymbalta GERD - Continue PPI Migraines - Continue Topamax DVT Prophylaxis: As per primary service CODE STATUS Full code Disposition: As per primary service-will be discharged today 12/08/2024 Admission and Anticipated Discharge Date Admission Date: December 05, 2024 Subjective 12/07/2024 The patient was seen and examined in medical telemetry unit She has been feeling much better Denies any significant symptoms and no palpitation, chest pain or any more pauses or arrhythmia on the monitor. 12/08/2024 Patient was seen and examined in medical telemetry immediately present family members She has been feeling much better with minimal back pain She has had more pain last night but not this morning She denies any other significant symptoms Review of Systems Review of Systems: All systems reviewed and are unremarkable except as noted below Physical Exam Physical Exam: Sitting on a chair without any acute distress Constitutional: well developed, well nourished and + obese; not ill appearing Eyes: PERRL, conjunctivae normal, anicteric sclerae ENMT: external ear and nose normal, oropharynx normal Neck: trachea midline, no thyromegaly Respiratory: no respiratory distress Auscultation: lungs clear to auscultation bilaterally Cardiovascular: Rate/Rhythm: regular rate and regular rhythm; not tachycardic Heart Sounds: normal S1 and normal S2; no murmur Extremities: + edema (Trace edema bilaterally) Gastrointestinal (Abdomen): Inspection/Auscultation: normal bowel sounds; abdomen not distended Percussion/Palpation: abdomen soft; abdomen nontender Neurologic: normal touch/pain/proprioception and moves all extremities; no focal motor deficits Psychiatric: A+Ox3, euthymic affect Lymphatic: no cervical or axillary lymphadenopathy Results & Data Results & Data Vital Signs (Past 12 Hours) Vital Signs Temp Pulse Resp BP BP Pulse Ox O2 Del Method 12/08/24 11:01 36.3 C L 91 H 20 134/75 94 Room Air 12/08/24 07:28 36.9 C 96 H 20 120/77 95 Room Air 12/08/24 04:04 37.0 C 89 17 116/69 94 Room Air Medications Administered Current Inpatient Medications Acetaminophen (Acetaminophen 500 Mg Tab) 1,000 mg PO Q8H PRN PRN Reason: MILD Pain (1,2,3) & Pre PT Stop: 01/04/25 16:42 Hydrocodone Bitart/Acetaminophen (Hydrocodone/Acetamophen 5/325mg Tab) 1 - 2 tab PO Q4H PRN PRN Reason: MOD/SEV Pain & Pre PT Stop: 12/19/24 16:42 Last Admin: 12/08/24 13:12 Dose: 2 tab Al Hydrox/Mg Hydrox/Simethicone (Aluminum/Magnesium/Simeth (Maalox Max) 30 Ml Udc) 15 ml PO Q6H PRN PRN Reason: Dyspepsia Stop: 01/05/25 11:43 Aspirin (Aspirin 81 Mg Ectab) 81 mg PO QAM [facility] Stop: 01/05/25 08:59 Last Admin: 12/08/24 08:23 Dose: 81 mg Atorvastatin Calcium (Atorvastatin 40 Mg Tab) 40 mg PO QPM [facility] Stop: 01/04/25 20:59 Last Admin: 12/07/24 20:42 Dose: 40 mg Baclofen (Baclofen 10 Mg Tab) 10 mg PO HS [facility] Stop: 01/04/25 20:59 Last Admin: 12/07/24 20:47 Dose: 10 mg Bisacodyl (Bisacodyl 10 Mg Supp) 10 mg VT DAILY PRN PRN Reason: Constipation Stop: 01/04/25 16:42 Cyanocobalamin (Cyanocobalamin (B-12) 500 Mcg Tablet) 1,000 mcg PO DAILY [facility] Stop: 01/05/25 08:59 Last Admin: 12/08/24 08:23 Dose: 1,000 mcg Dextrose (Dextrose 50% 50 Ml Syringe) 25 - 50 ml IV UD PRN; Protocol PRN Reason: Hypoglycemia Protocol Stop: 01/04/25 18:12 Diphenhydramine HCl (Diphenhydramine Capsule 25 Mg Cap) 25 mg PO Q6H PRN PRN Reason: Allergic Rhinitis/Insomnia Stop: 01/04/25 16:42 Duloxetine HCl (Duloxetine Hcl 60 Mg Cap) 60 mg PO BID [facility] Stop: 01/04/25 20:59 Last Admin: 12/08/24 08:23 Dose: 60 mg Ergocalciferol (Ergocalciferol 1250 Mcg (50,000 Units) Cap) 1,250 mcg PO Fr@0900 [facility] Stop: 01/08/25 08:59 Famotidine (Famotidine 20 Mg Tab) 20 mg PO Q12H PRN PRN Reason: Dyspepsia Stop: 01/04/25 16:42 Gabapentin (Gabapentin 600 Mg Tab) 600 mg PO BID [facility] Stop: 01/04/25 20:59 Last Admin: 12/08/24 08:24 Dose: 600 mg Glucagon (Glucagon For Inj 1 Mg Vial) 1 mg SQ UD PRN; Protocol PRN Reason: Hypoglycemia Protocol Stop: 01/04/25 18:12 Glucose (Glucose 40% Gel 15 Gm Tube) 15 - 30 gm PO UD PRN; Protocol PRN Reason: Hypoglycemia Protocol Stop: 01/04/25 18:12 Glucose (Glucose 10 Tab/Tube) 4 - 8 tab PO UD PRN; Protocol PRN Reason: Hypoglycemia Protocol Stop: 01/04/25 18:12 Hydromorphone HCl (Hydromorphone Inj 0.5 Mg/0.5 Ml Syr) 0.5 mg IV Q3H PRN PRN Reason: MODERATE Pain(4,5,6)/Pre PT Stop: 12/19/24 16:42 Hydromorphone HCl (Hydromorphone Inj 1 Mg/Ml Syringe) 1 mg IV Q3H PRN PRN Reason: SEVERE Pain (7,8,9,10) Stop: 12/19/24 16:42 Last Admin: 12/06/24 05:54 Dose: 1 mg Hydroxyzine HCl (Hydroxyzine Hcl 25 Mg Tab) 25 mg PO Q8H PRN PRN Reason: Anxiety Stop: 01/04/25 16:42 Promethazine HCl (Phenergan) 12.5 mg in 50.5 mls @ 202 mls/hr IV Q6H PRN PRN Reason: Nausea And Vomiting Stop: 01/04/25 16:42 Cefazolin Sodium (Ancef 2000mg) 2,000 mg in 15 mls @ 2.5 mls/min IV Q8H [facility] Stop: 12/13/24 13:59 Last Admin: 12/08/24 05:30 Dose: 2.5 mls/min Influenza Virus Vaccine Quadrival (Do Not Administer Flu Vaccine) 1 each N/A PRN PRN PRN Reason: Notification Stop: 01/04/25 16:42 Insulin Aspart (Insulin Aspart Per Unit Charge) 0 units SC ACHS [facility] Stop: 01/04/25 18:29 Last Admin: 12/08/24 13:02 Dose: Not Given Lorazepam (Lorazepam 0.5 Mg Tab) 0.5 mg PO Q8H PRN PRN Reason: Sedation/Anxiety Stop: 01/04/25 16:42 Lorazepam (Lorazepam 2 Mg/1 Ml Vial) 0.5 mg IV Q8H PRN PRN Reason: Sedation/Anxiety Stop: 01/04/25 16:42 Magnesium Hydroxide (Magnesium Hydroxide Susp 30 Ml Udc) 30 ml PO Q24H PRN PRN Reason: Constipation Stop: 01/04/25 16:42 Metoclopramide HCl (Metoclopramide Hcl Inj 5 Mg/Ml 2 Ml Vial) 10 mg IV Q6H PRN PRN Reason: Nausea &/or Vomiting Stop: 01/04/25 16:42 Metoprolol Succinate (Metoprolol Succ 50mg Ext Rel Tab) 50 mg PO QAM [facility] Stop: 01/05/25 12:14 Last Admin: 12/08/24 08:23 Dose: 50 mg Miscellaneous (Ubrelvy: Order Awaiting Action) 1 each N/A QS [facility] Stop: 01/05/25 00:00 Last Admin: 12/08/24 11:41 Dose: Not Given Miscellaneous (Carbohydrates For Hypoglycemia ) 15 - 30 gm PO UD PRN PRN Reason: Hypoglycemia Protocol Stop: 01/04/25 18:12 Miscellaneous Information (Pharmacy Glycemic Mgmt Consult) 1 each N/A UD PRN PRN Reason: Consult Stop: 01/04/25 18:12 Naloxone HCl (Naloxone Hcl 0.4 Mg/1 Ml Vial/Carp) 0.1 mg IV Q5M PRN PRN Reason: Oversedation/Resp depression Stop: 01/04/25 16:42 Ondansetron HCl (Ondansetron Inj 2 Mg/Ml 2 Ml Vial) 4 mg IV Q6H PRN PRN Reason: Nausea &/or Vomiting Stop: 01/04/25 16:42 Ondansetron HCl (Ondansetron 4 Mg Od Tab) 4 mg PO Q6H PRN PRN Reason: Nausea Stop: 01/04/25 16:42 Pantoprazole Sodium (Pantoprazole 40 Mg Tab) 40 mg PO BID [facility]; Protocol Stop: 01/04/25 20:59 Last Admin: 12/08/24 08:23 Dose: 40 mg Pneumococcal Polyvalent Vaccine (Do Not Administer Pneumococcal Vaccine) 1 each N/A PRN PRN PRN Reason: Notification Stop: 01/04/25 16:42 Senna/Docusate Sodium (Docusate Sodium/Senna 50/8.6mg Tab) 2 tab PO HS [facility] Stop: 01/04/25 20:59 Last Admin: 12/07/24 20:47 Dose: 2 tab Sodium Biphosphate/Sodium Phosphate (Sod Phosphate/Sod Biphosphate Enema 132 Ml Btl) 132 ml VT ONE PRN PRN Reason: Constipation Stop: 01/04/25 16:42 Topiramate (Topiramate 100 Mg Tab) 100 mg PO HS [facility] Stop: 01/04/25 20:59 Last Admin: 12/07/24 20:41 Dose: 100 mg Tramadol HCl (Tramadol Hcl 50 Mg Tablet) 50 - 100 mg PO Q4H PRN PRN Reason: MOD/SEV Pain & Pre PT Stop: 01/04/25 16:42 Valsartan (Valsartan 80 Mg Tab) 40 mg PO QAM [facility] Stop: 01/05/25 08:59 Last Admin: 12/08/24 13:01 Dose: 40 mg Vitamin D (Cholecalciferol 25 Mcg (1000 Units) Tab) 50 mcg PO BID [facility] Stop: 01/04/25 20:59 Last Admin: 12/08/24 08:22 Dose: 50 mcg (5) HTN (hypertension) Hypertension type: unspecified Qualified Code(s): I10 - Essential (primary) hypertension (6) Type 2 diabetes mellitus 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
--- NOTE | 2024-12-08 14:21 | Electrocardiogram Report ---
Test Reason : Blood Pressure : */* mmHG Vent. Rate : 83 BPM Atrial Rate : 83 BPM P-R Int : 194 ms QRS Dur : 96 ms QT Int : 428 ms P-R-T Axes : 46 -14 21 degrees QTcB Int : 502 ms Normal sinus rhythm Prolonged QT Abnormal ECG When compared with ECG of 05-Dec-2024 17:45, No significant change was found Confirmed by Paxton Acharya [id number]) on 12/08/2024 2:21:02 PM Referred By: Mike Jiang Confirmed By: Paxton Ahcarya
[2024-12-09] MEDS ORDERED: ERGOCALCIFEROL 1250 MCG (50,000 UNITS) CAP PO SCH (09:00)
== END 2024-12-08 14:10 | disposition home or self-care (01) | DRG 402 ==
LOC: ASU 09:54 → 3E 15:26 → 2N 20:18